=== PATIENT | female | born 1940 | race Caucasian/White ===

== ENCOUNTER 2019-04-28 08:23 | Day surgery (SDC) | payer OTHER ==
[2019-04-25 12:01] LABS: Absolute Lymphocytes (CBC) 1.3 K/uL (0.7-4.9); Basophils % 0.7 % (0-1.3); Hematocrit 30.8 % (36.0-45.0); Lymphocytes % 19.9 % (15.3-44.8); MPV 7.2 fL (7.6-11.3); RBC Red Blood Cell Count 3.89 M/uL (3.86-4.86)
--- NOTE | 2019-04-25 12:13 | RAD REPORT ---
EXAM DESCRIPTION: RAD - Chest Pa And Lat (2 Views) - 04/25/2019 12:00 pm CLINICAL HISTORY: preopright arm soft tissue injury repair COMPARISON: None. TECHNIQUE: PA and lateral views of the chest were obtained. 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 An acute infiltrate is not identified. Scarring white ges and pericardial fat accentuate the left base. Patient has a large hiatal hernia that increases ov erall density in the retrocardiac region. Heart size is normal and central vasculature is within no rmal limits. No pleural effusion or pneumothorax seen. No acute bony finding noted. No aortic abno rmality. IMPRESSION: Fibrotic lung change with no acute cardiopulmonary finding.
[2019-04-25 12:19] LABS: Potassium 3.8 mmol/L (3.5-5.1)
[2019-04-25 13:14] LABS: Platelet Estimate ADEQ; Urine White Blood Cell Casts OK
[2019-04-25 13:15] LABS: Anisocytosis 2+; Blood Morphology Comment NOTED (NOT SEEN)
--- NOTE | 2019-04-25 20:47 | EKG ---
Test Date: 2019-04-25 Test Time: 11:42:35 Rotary Planer Set Up Operator: RADHA MEASUREMENT RESULTS: Intervals: Rate: 66 FL: 150 QRSD: 88 QT: 422 QTc: 442 [place]: P: 61 FL: 150 QRS: 40 T: 70 INTERPRETIVE STATEMENTS: Sinus rhythm with premature atrial complexes Otherwise normal ECG Compared to ECG 01/06/2007 09:41:44 Atrial premature complex(es) now present Electronically Signed On 04-25-19 20:46:41 SOLE LEVELER MACHINE by Kaushik Castellanos
[~2019-04-28 08:23] MED LIST: FENTANYL CITR 100 MCG/2 ML ONE; LIDOCAINE 2% MPF 5 ML VIAL ONE; MIDAZOLAM HCL 2 MG/2 ML INJ ONE; propofoL 200 MG/20 ML VIAL IV ONE
--- OUTSIDE RECORDS SUMMARY | 2019-04-28 08:26 | XMS REPORT ---
:1940 [facility] Address [address] [place] [address] [place] [id number] Care Team Providers Name Role Phone Unavailable Unavailable Unavailable Problems This patient has no known problems. Allergies, Adverse Reactions, Alerts This patient has no known allergies or adverse reactions. Medications This patient has no known medications.
[2019-04-28] MEDS ORDERED: CEFAZOLIN/SWI 1gm 0 GM/0 ML SYR ONE (08:56)
[2019-04-28] MEDS ORDERED: Ringers Lactate 1,000 ML IV ONE (08:56)
[2019-04-28] MEDS ORDERED: MIDAZOLAM HCL 2 MG/2 ML INJ ONE (09:26)
[2019-04-28] MEDS ORDERED: LIDOCAINE 2% MPF 5 ML VIAL ONE (09:26)
[2019-04-28] MEDS ORDERED: propofoL 200 MG/20 ML VIAL IV ONE (09:26)
[2019-04-28] MEDS ORDERED: FENTANYL CITR 100 MCG/2 ML ONE (09:26)
[2019-04-28] MEDS ORDERED: BUPIVACAINE 0.5% PF 10 ML VIAL ONE (10:17)
[2019-04-28] MEDS ORDERED: CIPROFLOXACIN 400mg IV 400 MG/200 ML BAG IV ONE (10:37)
[2019-04-28] MEDS ORDERED: CODEINE 30MG/APAP 300MG TAB ONE (11:42)
[2019-04-28 12:27] VITALS: BP 1365/68; TEMP 97; O2SAT 94
--- NOTE | 2019-04-28 22:55 | OP ---
Date of Procedure: 04/28/2019 Surgeon: Luis Molina MD Preoperative Diagnosis: Nonhealing wound, right anterior shoulder. Postoperative Diagnosis: Nonhealing wound, right anterior shoulder. Procedure: Wide excision, nonhealing right anterior shoulder wounds 4 x 2 cm. Estimated Blood Loss: Minimal. Specimens: Nonhealing wound. Findings: Likely suture granuloma. Anesthesia: MAC. Complications: None. Disposition: Patient tolerated procedure in stable condition, taken to Recovery in good general cond ition. Procedure In Detail: Patient was brought to the OR and placed in supine position. MAC anesthesia wa s begun. The patient was prepped and draped in the usual sterile fashion. Marcaine 0.5% was infiltr ated locally. A 15-blade was used to make a 4 x 2 cm incision around the area of the nonhealing woun d down to the subcutaneous tissue, excised and sent to pathology as specimen. No obvious suture seen , but there was a lot of granulation tissue and inflammatory tissue that was seen. This was all exci sed to healthy tissue and then wound irrigated, bleeding controlled with cautery and 3-0 chromic used to approximate the subcutaneous tissue. The skin left open as the patient had a draining wound prio r to this and sterile dressing was applied. Patient was awakened and taken to recovery in good gener al condition. Discharge Note: The patient will go to Day-Surgery, home when stable. Condition: Stable. Discharge Instructions: Resume home medications and diet. Activity as tolerated. No heavy lifting. Remove outer dressing in 2 days. Shower. Keep wound clean and dry. Dry gauze to wound daily. [facility] 2 weeks. Call for appointment. Tylenol No. 3 one tablet p.o. q .4 p.r.n. pain and Cipro 500 mg p.o. q.12. May resume blood thinners tomorrow. /MODL Voice ID: [id number] Report ID: [id number]
== END 2019-04-28 12:17 | disposition home or self-care (01) ==
LOC: OR 08:23
PROVIDERS: ATTEND Surgery
PROC: 0JBD0ZZ Excision of Right Upper Arm Subcutaneous Tissue and Fascia, Open Approach (ICD-10-PCS; principal; 2019-04-28 10:15)
DX: T81.89XA Other complications of procedures, not elsewhere classified, initial encounter (principal); D64.9 Anemia, unspecified; I10 Essential (primary) hypertension; I38 Endocarditis, valve unspecified; E78.5 Hyperlipidemia, unspecified; E03.9 Hypothyroidism, unspecified; F03.90 Unspecified dementia, unspecified severity, without behavioral disturbance, psychotic disturbance, mood disturbance, and anxiety; F32.9 Major depressive disorder, single episode, unspecified; Z88.0 Allergy status to penicillin; Z79.02 Long term (current) use of antithrombotics/antiplatelets
CPT/HCPCS: 93005; 85025; 80048; 36415; 88304; 71046; 11042; J2704; J3010; J7120; J0744; J0690; J2250

== ENCOUNTER 2019-09-15 08:46 | Emergency (ER) | payer OTHER ==
--- OUTSIDE RECORDS SUMMARY | 2019-09-15 09:11 | XMS REPORT ---
:1940 Author Organization [facility] t Address [address] [place] [place] [address] Care Team Providers Name Role Phone Ramon FARIAS Attending Clinician Jerry Grossman Attending Clinician Tomas STRATTON F Attending Clinician Benson FARIAS Attending Clinician Christiano FARIAS Attending Clinician Eve STRATTON, R Attending Clinician Erica FARIAS, Gene Attending Clinician Doctor Unassigned, Name Attending Clinician Unavailable Beck VINCENT L Attending Clinician Unavailable Amee Orozco Attending Clinician Behzad FARIAS Attending Clinician Benson FARIAS Admitting Clinician Behzad FARIAS Admitting Clinician Problems This patient has no known problems. Allergies, Adverse Reactions, Alerts This patient has no known allergies or adverse reactions. Medications This patient has no known medications. Procedures This patient has no known procedures. Encounters Start End Encounter Admission Attending Care Care Encounter Source Date/Time Date/Time Type Type Clinicians Facility Department ID 2019-08-15 2019-08-15 Telephone SOPHIA Navarro [id number] 00:00:00 00:00:00 Tammy Hiram [id number] [place] [id number] Professio [phone] [facility] 188 Building 2019-08-11 2019-08-12 Emergency Neda Kearney [facility] [id number] 13:22:30 19:51:00 Pepito Marin 350.1.13. 10 BensonBarb [place] [id number] [place] [id number] 2019-08-12 2019-08-12 [facility] [id number] 00:00:00 00:00:00 DileepHugh [facility] [id number] [place] [id number] Professio [phone] [place] [address] Office [address] One 2019-07-26 2019-07-26 [facility]ill [facility] [id number] 00:00:00 00:00:00 [facility]ugh [facility] [id number] [place] [id number] Professio [phone] [place] [address] [address] One 2019-07-24 2019-07-24 [facility] [id number] 10:09:32 13:42:00 Keisha Gandhi [id number] [place] [id number] [place] [id number] 2019-07-20 2019-07-20 [facility]phone [facility] [id number] 00:00:00 00:00:00 Kosta Gandhi [id number] [place] [id number] Professio [phone] [facility] 2019-07-11 2019-07-11 Orders Doctor FLORIAN [id number] 00:00:00 00:00:00 Only Unassigned, NEMO [id number] [place] [facility] 4.2.7.2.686 [id number] 2019-06-28 2019-06-28 [place] [id number] 00:00:00 00:00:00 of Care Senia Johnson [id number] [place] 4.2.7.2.686 [id number] [id number] 2019-06-28 2019-06-28 Telephone [facility] [id number] 00:00:00 00:00:00 [facility] [id number] [place] [id number] Professio [phone] [place] 0[address] Office [address] One 2019-06-24 2019-06-26 Emergency Britt, Asim Amee [facility] [id number]. [id number] 10:14:00 13:15:00 Ilya Wen 350.1.13.10 [place] 4.2.7.2.686 [place] [id number] 2019-06-06 2019-06-06 Office Erica [facility] [id number] 14:22:34 15:53:57 Visit Kosta Gandhi [id number] [place] [id number] Professio [phone] [place] 092 Building 2019-06-06 2019-06-06 Orders Doctor FLORIAN [id number] 00:00:00 00:00:00 Only Unassigned, NEMO [id number] [place] [facility] 4.2.7.2.686 [id number] [id number] Results This patient has no known results.
--- OUTSIDE RECORDS SUMMARY | 2019-09-15 09:15 | XMS REPORT | Summary of Care ---
:1940 Author Organization [facility] Address [address] [place] [id number] Care Team Providers Name Role Phone MD Christiano Primary Care Provider Reason for Referral Radiology Services (STAT) Status Reason Specialty Diagnoses / Referred By Referred To Procedures Contact Contact New Request Diagnostic Diagnoses Toe dislocation, left, initial encounter Keisha Prado R, Radiology Procedures XR FOOT <3 VW LEFT [facility] [address] [place] [address] Radiology Services (STAT) Status Reason Specialty Diagnoses / Referred By Referred To Procedures Contact Contact New Request Diagnostic Diagnoses Altered mental status, unspecified altered mental status type 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 Left foot pain Fall, initial encounter Injury of head, initial encounter Keisha Prado R, Radiology Procedures XR CHEST 1 VW XR CHEST 2 VW NURSE [facility] [address] [place] [address] Radiology Services (STAT) Status Reason Specialty Diagnoses / Referred By Referred To Procedures Contact Contact New Request Diagnostic Diagnoses Altered mental status, unspecified altered mental status type 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 Left foot pain Fall, initial encounter Injury of head, initial encounter Keisha Prado R, Radiology Procedures XR FOOT 3+ VW LEFT NURSE [facility] [address] [place] [address] MRI/CAT Scan (STAT) Status Reason Specialty Diagnoses / Referred By Referred To Procedures Contact Contact New Request Diagnostic Diagnoses Altered mental status, unspecified altered mental status type 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 Left foot pain Fall, initial encounter Injury of head, initial encounter Keisha Prado, Radiology Procedures CT CERVICAL SPINE WO CONTRAST NURSE [facility] [address] [place] [address] MRI/CAT Scan (STAT) Status Reason Specialty Diagnoses / Referred By Referred To Procedures Contact Contact New Request Diagnostic Diagnoses Altered mental status, unspecified altered mental status type 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 Left foot pain Fall, initial encounter Injury of head, initial encounter Keisha Prado, Radiology Procedures CT HEAD WO CONTRAST NURSE [facility] [address] [place] [address] Reason for Visit Reason Comments Fall Auth/Cert Status Reason Specialty Diagnoses / Referred By Referred To Procedures Contact Contact Emergency Medicine [facility] Em ergency Dept [address] [facility] [place] [address] Fax: Encounter Details Date Type Department Care Team Description 07/24/2019 Emergency [facility]-Emergency Keisha Prado, Injury of h ead, initial encounter (Primary Dx); Department [facility] Altered mental status, unspecified alter ed mental status type; [address] [place] [address] [address] Senile dementia without behavioral distu rbance; [address] Left foot pain; [phone] [id number] Fall, initial encounter; [phone] Toe dislocation, left, initial encounter ; Displaced fracture of proximal phalanx of right great toe, initial encounter for closed fracture; Contusion of sc alp, initial encounter Allergies Active Allergy Reactions Severity Noted Date Comments Chocolate Flavor Anxiety 04/20/2015 Nitrofurantoin Unknown - See 04/20/2015 Monohyd/M-Cryst comments Morphine Nausea and/or 12/19/2016 Vomiting Penicillin Other - See comments 12/19/2016 Pt stat es "several family members are allergic so i t hink i am" documented as of this encounter (statuses as of 07/24/2019) Medications Medication Sig Dispensed Refills Start Date End Date Status Cholecalciferol, Vitamin Take 1,000 Units 0 Active D3, (VITAMIN D3) 1,000 by mouth every unit capsule morning. lovastatin 20 mg tablet Take 20 mg by 0 11/02/2016 Active mouth daily. ciclopirox 8 % Apply to 6.6 mL 2 02/04/2017 Acti ve solutionIndications: area(s) at Onychomycosis bedtime. Apply to dry nail/surrounding skin. Reapply nightly. Remove with alcohol, trim/file nails on day 7. repeat traMADOL (ULTRAM) 50 mg Take 1 tablet by 20 tablet 0 8 Active tablet mouth every 6 (six) hours as needed for Pain (scale 4-6). mupirocin 2 % Apply to 22 g 0 12/30/2017 Activ e ointmentIndications: area(s) 3 Abscess (three) times daily. rivaroxaban 15 mg tablet Take 1 tablet by 0 01/19/20 18 Active mouth daily. hydrocortisone Insert into 30 g 1 04/07/2018 A ctive (PROCTOSOL HC) 2.5 % rectum 2 (two) rectal cream times daily. levothyroxine 88 mcg TAKE 1 TABLET BY 90 tablet 1 03/01/2019 Active tabletIndications: MOUTH ONCE DAILY Hypothyroidism, IN THE MORNING unspecified type Ferrous Fumarate-Folic Take 1 tablet by 90 tablet 1 03/16/2019 Active Acid (HEMATINIC/FOLIC mouth daily. ACID) 324 mg (106 mg iron)-1 mg TabIndications: Iron deficiency anemia, unspecified iron deficiency anemia type rivastigmine 4.6 mg/24 Apply 1 Patch to 30 Patch 1 06/06/2019 Active hr patchIndications: skin daily. 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 tabletIndications: Dizziness, PAF (paroxysmal atrial fibrillation) vitamin B-12 1,000 mcg Take 1 tablet by 30 tablet 0 06/26/2019 Active tabletIndications: mouth daily. Dizziness, PAF (paroxysmal atrial fibrillation) documented as of this encounter (statuses as of 07/24/2019) Active Problems Problem Noted Date LOC (loss of consciousness) 06/25/2019 PAF (paroxysmal atrial fibrillation) 06/25/2019 Orthostatic hypotension 06/25/2019 Dizziness 06/24/2019 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 Right arm pain 2016 Essential hypertension 07/12/2015 Hyperlipemia 07/12/2015 Hypothyroidism 07/12/2015 Iron (Fe) deficiency anemia 07/12/2015 Vitamin D deficiency 07/12/2015 documented as of this encounter (statuses as of 07/24/2019) Immunizations Name Administration Dates Next Due Influenza High Dose 03/17/2019, 02/12/2017 Pneumococcal Polysaccharide, PPSV23 (PNEUMOVAX) 03/17/2019 documented as of this encounter Social History Tobacco Use Types Packs/Day Years Used Date Never Smoker Cigarettes 1 Quit: 0 Smokeless Tobacco: Never Used Alcohol Use Drinks/Week oz/Week Comments Yes Occasional Drink er Sex Assigned at Date Recorded Not on file Job Start Date Occupation Industry Not on file Not on file Not on file Travel History Travel Start Travel End No recent travel history available. 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 Head contusion 2. Head injury 3. Toe fracture, closed NO LIFE-THREATENING FINDINGS ON TODAY'S EXAM. PROCEDURES IN THE ER TODAY: Orders Placed This Encounter Procedures CT HEAD WO CONTRAST CT CERVICAL SPINE WO CONTRAST XR FOOT 3+ VW LEFT XR CHEST 1 VW XR FOOT <3 VW LEFT CBC WITH DIFF COMP. METABOLIC PANEL (33630) TROPONIN I PROTHROMBIN TIME / INR aPTT URINALYSIS CBC WITH DIFFERENTIAL MEDICATIONS ADMINISTERED IN THE ER TODAY: Medications - No data to display YOUR PRESCRIPTIONS AND [id number] MEDICATION RECOMMENDATIONS: New Prescriptions No medications on file SPECIAL CARE INSTRUCTIONS: Tylenol for pain. Ice for head and face and toe FOLLOW-UP RECOMMENDATIONS: RECOMMEND FOLLOW-UP WITH A PRIMARY CARE PROVIDER OR SPECIALIST IN 2-5 DAYS, ESPECIALLY IF NO IMPROVEMENT IN SYMPTOMS. TO FOLLOW-UP WITHIN THE [facility], TRY THESE OPTIONS (CLINIC APPOINTMENTS AVAILABLE ON [id number] BASIS): 1. SCHEDULE AN APPOINTMENT ONLINE AT [facility] 2. OR CALL THE [facility]ESS [facility]ENTER AT OR 3. OR CALL YOUR [facility] PHYSICIAN'S OFFICE DIRECTLY IF YOU ARE ALREADY AN ESTABLISHED [facility] PATIENT. OR, YOU MAY FOLLOW-UP WITH A PROVIDER OF YOUR CHOICE, SUCH : 1. A PHYSICIAN OF YOUR CHOICE 2. [facility], . LOCATIONS IN [facility] 3. [facility], [address] [place] [address]; [phone] RETURN TO ER FOR WORSENING OF SYMPTOMS. AttachmentsThe following attachments cannot be sent through Care Everywhere. Bruises (Contusions) ([place]gent[place])Scalp Contusion ([place])Fracture, Toe, Closed ([place])documented in this encounter Plan of Treatment Health Maintenance Due Date Last Done Comments DTaP,Tdap,and Td Vaccines (1 - Tdap) 1951 Zoster Recombinant Vaccine (SHINGRIX) (1 1992 of 2) Medicare Wellness Visit 12/03/2007 Osteoporosis Screening 12/03/2007 PNEUMOCOCCAL VACCINES 65+ (2 of 2 - PCV13) 03/17/202003/17 INFLUENZA VACCINE Completed 03/17/2019, 02/12/2017 documented as of this encounter Implants Implanted Type Area Floor Trader Device Shelf Model / Identifier Expiration Serial / Lot Date Cement CEMENT Right: Biomet 01/31/2018 [id number] / Implanted: Qty: 1 on 12/19/2016 by Jude Rios MD at [facility] Shoulder 6 [id number] / [id number] Cement CEMENT Right: [employer]omet 04/02/2018 [id number] / Implanted: Qty: 1 on 12/19/2016 by Jude Rios MD at [facility] 6 [id number] / [id number] Central Screw SCREW Right: [employer] 12/11/2026 [id number] / Implanted: Qty: 1 on 12/19/2016 by Jude Rios MD at [facility] 7 [id number] / [id number] Locking Screw SCREW Right: [employer] 09/16/2026 [id number] 0 / Implanted: Qty: 1 on 12/19/2016 by Jude Rios MD at [facility] Shoulder 4 [id number] / [id number] Locking Screw SCREW Right: [employer] 11/04/2026 [id number] 0 / Implanted: Qty: 1 on 12/19/2016 by Jude Rios MD at [facility] Shoulder 2 [id number] / [id number] Nonlocking Screw SCREW Right: [employer] 10/15/2026 18 [id number] / Implanted: Qty: 1 on 12/19/2016 by Jude Rios MD at [facility] Shoulder 8 [id number] / [id number] Nonlocking Screw SCREW Right: [employer] 09/13/2026 18 [id number] / Implanted: Qty: 1 on 12/19/2016 by Jude Rios MD at [facility] 4 [id number] / [id number] Bone Cement Restrictor SHOULDER Right: [employer]omet [id number] / Implanted: Qty: 1 on 12/19/2016 by Jude Rios MD at [facility] Shoulder 3 [id number] / [id number] Humeral Bearing SHOULDER Right: [employer] 11/17/2021 XL- [id number] / Implanted: Qty: 1 on 12/19/2016 by Jude Rios MD at [facility] Shoulder 2 [id number] / [id number] Humeral Tray With Locking Ring SHOULDER Right: [employer] 09/05/2026 [id number] / Implanted: Qty: 1 on 12/19/2016 by Jude Rios MD at [facility] 2 [id number] / [id number] Mini Baseplate SHOULDER Right: [employer] 10/09/2026 0100 [id number] / Implanted: Qty: 1 on 12/19/2016 by Jude Rios MD at [facility] Shoulder 1 [id number] / [id number] Glenosphere SHOULDER Right: [employer]omet 11/26/2026 [id number] / Implanted: Qty: 1 on 12/19/2016 by Jude Rios MD at [facility] 7 [id number] / [id number] Humeral Fracture Stem Stem Right: [employer]omet 08/30/19 [id number] / Implanted: Qty: 1 on 12/19/2016 by Jude Rios MD at [facility] 4 [id number] / [id number] documented as of this encounter Procedures Procedure Name Priority Date/Time Associated Diagnosis Comme nts CONSENT/REFUSAL FOR Routine 07/24/2019 1:09 DIAGNOSIS AND PM CDT TREATMENT XR FOOT <3 VW LEFT STAT 07/24/2019 11:40 Toe dislocation, R esults for this AM CDT left, initial procedure are in encounter the results section. URINALYSIS STAT 07/24/2019 11:11 Altered mental Results f or this AM CDT status, unspecified procedur e are in altered mental the results status type section. 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 METABOLIC PANEL STAT 07/24/2019 10:19 Altered mental Results for this (18165) AM CDT status, unspecified procedur e are in altered mental the results status type section. 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 Left foot pain Fall, initial encounter Injury of head, initial encounter TROPONIN I STAT 07/24/2019 10:19 Altered mental Results f or this AM CDT status, unspecified procedur e are in altered mental the results status type section. 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 Preliminary Report Dictated by Resident: Pierre Loera I, Jeffrey Grimm MD., have reviewed thi s study and agree with the above report. Narrative Performed At EXAM: PACS/VR/DOSE XR FOOT <3 VW LEFT HISTORY: post reduction of 2nd toe on left foot. COMPARISON: Same day left foot radiographs FINDINGS: Status post reduction radiographs demonstrate interval improved alignment of the second toe P1 fracture, now in an atomic alignment. Diffuse osteopenia is noted. Overlying soft tiss ue swelling is present. Procedure Note [facility], Radiant Results Inft User - 2019 12:42 PM CDT EXAM: XR FOOT <3 VW LEFT HISTORY: post reduction of 2nd toe on left foot. COMPARISON: Same day left foot radiographs FINDINGS: Status post reduction radiographs demons trate interval improved alignment of the second toe P1 fracture, now in an atomic alignment. Diffuse osteopenia is noted. Overlying soft tiss ue swelling is present. IMPRESSION Successful reduction of the second toe P 1 fracture. Preliminary Report Dictated by Resident: Pierre Loera I, Jeffrey Grimm MD., have reviewed this study and agree with the above report. Performing Organization Address [facility]ode Phone Number PACS/VR/DOSE URINALYSIS (07/24/2019 11:11 AM CDT) Pathologist Sig nature APPEARANCE Clear Clear [facility] COLOR Straw (A) Yellow [facility] PH 7.0 4.8 - 8.0 [facility] SP GRAVITY 1.005 1.003 - 1.030 [facility] GLU U QUAL Normal Normal [facility] BLOOD 1+ (A) Negative [facility] KETONES Negative Negative [facility] PROTEIN Negative Negative [facility] UROBILIN Normal Normal [facility] BILIRUBIN Negative Negative [facility] NITRITE Negative Negative [facility] [place] Negative Negative [facility] RBC/HPF 1 0 - 3 HPF [facility] WBC/HPF 1 0 - 5 HPF [facility] BACTERIA Negative Negative [facility] SQ EPITH <1 HPF [facility] Specimen Urine - URINE, CATHETERIZED Performing Organization Address [facility]/Zipcode Phone Number [facility] CLIA: [id number], [address] [place], [place] [address] CERVICAL SPINE WO CONTRAST (07/24/2019 11:02 AM CDT) Specimen Impressions Performed At PACS/VR/DOSE No acute intracranial findings. No acute osseous findings in the cervica l spine. Narrative Performed At HISTORY: Head trauma, minor, GCS>=13, hi gh clinical risk, initial exam PACS/VR/DOSE Altered mental status (AMS), unclear cau se TECHNIQUE: CT head without contrast. CT cervical spine without contrast. COMPARISON: 02/17/2018. FINDINGS: CT HEAD: The ventricles and sulci are within norm al limits for patient's age. A small contusion is seen in the midline f rontal scalp (2:8). There is no midline shift. The basal cisterns are pr eserved. No large vascular territory infarction, intracranial hemor rhage or mass effect is seen. CT cervical spine: There is mild anterolisthesis of C3 on C4. The vertebr al body heights are preserved. No acute fractures are seen. Fusion is seen in the C2-C3 and C6-C7 vertebral bodies. Moderate multilevel degenerati ve changes are noted the form of disc space narrowing, margin al osteophytes and facet arthropathy, with the facet arthropathy being the dominant component of these changes. Procedure Note [facility], Radiant Results Inft User - 2019 11:41 AM CDT HISTORY: Head trauma, minor, GCS>=13, high clinical risk, initial exam Altered mental status (AMS), unclear cau se TECHNIQUE: CT head without contrast. CT cervical spine without contrast. COMPARISON: 02/17/2018. FINDINGS: CT HEAD: The ventricles and sulci are within norm al limits for patient's age. A small contusion is seen in the midline f rontal scalp (2:8). There is no midline shift. The basal cisterns are pr eserved. No large vascular territory infarction, intracranial hemor rhage or mass effect is seen. CT cervical spine: There is mild anterolisthesis of C3 on C 4. The vertebral body heights are preserved. No acute fractures are seen. Fusion is seen in the C2-C3 and C6-C7 vertebral bodies. Moderate multile marissa degenerative changes are noted the form of disc space narrowing, margin al osteophytes and facet arthropathy, with the facet arthropathy being the dominant component of these changes. IMPRESSION No acute intracranial findings. No acute osseous findings in the cervica l spine. Performing Organization Address City/State/Zipcode Phone Number PACS/VR/DOSE CT HEAD WO CONTRAST (07/24/2019 11:02 AM CDT) Specimen Impressions Performed At PACS/VR/DOSE No acute intracranial findings. No acute osseous findings in the cervica l spine. Narrative Performed At HISTORY: Head trauma, minor, GCS>=13, hi gh clinical risk, initial exam PACS/VR/DOSE Altered mental status (AMS), unclear cau se TECHNIQUE: CT head without contrast. CT cervical spine without contrast. COMPARISON: 02/17/2018. FINDINGS: CT HEAD: The ventricles and sulci are within norm al limits for patient's age. A small contusion is seen in the midline f rontal scalp (2:8). There is no midline shift. The basal cisterns are pr eserved. No large vascular territory infarction, intracranial hemor rhage or mass effect is seen. CT cervical spine: There is mild anterolisthesis of C3 on C4. The vertebr al body heights are preserved. No acute fractures are seen. Fusion is seen in the C2-C3 and C6-C7 vertebral bodies. Moderate multilevel degenerati ve changes are noted the form of disc space narrowing, margin al osteophytes and facet arthropathy, with the facet arthropathy being the dominant component of these changes. Procedure Note [facility], Radiant Results Inft User - 2019 11:41 AM CDT HISTORY: Head trauma, minor, GCS>=13, high clinical risk, initial exam Altered mental status (AMS), unclear cau se TECHNIQUE: CT head without contrast. CT cervical spine without contrast. COMPARISON: 02/17/2018. FINDINGS: CT HEAD: The ventricles and sulci are within norm al limits for patient's age. A small contusion is seen in the midline f rontal scalp (2:8). There is no midline shift. The basal cisterns are pr eserved. No large vascular territory infarction, intracranial hemor rhage or mass effect is seen. CT cervical spine: There is mild anterolisthesis of C3 on C 4. The vertebral body heights are preserved. No acute fractures are seen. Fusion is seen in the C2-C3 and C6-C7 vertebral bodies. Moderate multile marissa degenerative changes are noted the form of disc space narrowing, margin al osteophytes and facet arthropathy, with the facet arthropathy being the dominant component of these changes. IMPRESSION No acute intracranial findings. No acute osseous findings in the cervica l spine. Performing Organization Address City/State/Zipcode Phone Number PACS/VR/DOSE XR CHEST 1 VW (07/24/2019 10:39 AM CDT) Specimen Impressions Performed At PACS/VR/DOSE Left lower lobe opacities likely represe nting atelectasis/scarring. Infection cannot be excluded. Moderate-sized hiatal hernia, unchanged. Preliminary Report Dictated by Resident: Randall Garcia MD., have reviewed this study and agree with the above report. Narrative Performed At XR CHEST 1 VW PACS/VR/DOSE HISTORY: AMS, fall COMPARISON: 06/24/2019 TECHNIQUE: AP radiograph of the chest wa s performed. FINDINGS: Emphysematous lungs. Rounded opacity projecting over t he mediastinum with air-fluid levels likely representing a m oderate size hiatal hernia, unchanged. Left lower lobe hazy opacitie s may represent scarring/atelectasis and/or consolidations. No right p leural effusion. No pneumothorax. The lower neck is not incl uded on the study and not evaluated. The heart size is normal. Calcifications of the aortic knob. No acute osseous abnormality. Prior chol ecystectomy. Diffuse osteopenia. Right shoulder arthroplasty changes are partially visualized. Procedure Note [facility], Radiant Results Inft User - 2019 11:20 AM CDT XR CHEST 1 VW HISTORY: AMS, fall COMPARISON: 06/24/2019 TECHNIQUE: AP radiograph of the chest wa s performed. FINDINGS: Emphysematous lungs. Rounded opacity pro jecting over the mediastinum with air-fluid levels likely representing a m oderate size hiatal hernia, unchanged. Left lower lobe hazy opacitie s may represent scarring/atelectasis and/or consolidatio ns. No right pleural effusion. No pneumothorax. The lower neck is not incl uded on the study and not evaluated. The heart size is normal. Calcifications of the aortic knob. No acute osseous abnormality. Prior chol ecystectomy. Diffuse osteopenia. Right shoulder arthroplasty changes are partially visualized. IMPRESSION Left lower lobe opacities likely represe nting atelectasis/scarring. Infection cannot be excluded. Moderate-sized hiatal hernia, unchanged. Preliminary Report Dictated by Resident: Randall Garcia MD., have reviewed this study and agree with the above report. Performing Organization Address City/State/Zipcode Phone Number PACS/VR/DOSE XR FOOT 3+ VW LEFT (07/24/2019 10:39 AM CDT) Specimen Impressions Performed At PACS/VR/DOSE Displaced angulated fracture of the seco nd toe distal P1. Diffuse osteopenia. 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 Narrative Performed At EXAM: PACS/VR/DOSE XR FOOT 3+ VW LEFT HISTORY: left 2nd toe pain and abnormality. COMPARISON: None FINDINGS: Radiographs of the left foot demonstrate displaced angulated fracture of the second toe P1 head/neck with apex la teral angulation of the distal fracture fragment. The joints maintain a lignment. Diffuse osteopenia is seen. Calcaneal enthesophyte formation is seen. Osteoa rthritic changes of the talonavicular joint are noted. 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 Degenerative cyst formation is seen at the superior me dial navicular bone. Mild soft tissue swelling around the dis anabela second toe is seen. Procedure Note [facility], Radiant Results Inft User - 2019 12:44 PM CDT EXAM: XR FOOT 3+ VW LEFT HISTORY: left 2nd toe pain and abnormality. COMPARISON: None FINDINGS: Radiographs of the left foot demonstrate displaced angulated fracture of the second toe P1 head/neck with apex la teral angulation of the distal fracture fragment. The joints maintain a lignment. Diffuse osteopenia is seen. Calcaneal enthesophyte formation i s seen. Osteoarthritic changes of the talonavicular joint are noted. 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 Degenerative cyst formation is seen at t he superior medial navicular bone. Mild soft tissue swelling around the dis anabela second toe is seen. IMPRESSION Displaced angulated fracture of the seco nd toe distal P1. Diffuse osteopenia. 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 Performing Organization Address City/State/Zipcode Phone Number PACS/VR/DOSE CBC WITH DIFFERENTIAL (07/24/2019 10:19 AM CDT) Pathologist Sig nature WBC 8.25 4.30 - 11.10 [facility] 10*3/L [facility] RBC 3.92 (L) 3.93 - 5.25 [facility] 10*6/L [facility] HGB 11.2 (L) 11.6 - 15.0 [facility] g/dL [facility] HCT 34.1 (L) 35.7 - 45.2 % [facility] MCV 87.0 80.6 - 95.5 fL [facility] MCH 28.6 25.9 - 32.8 pg [facility] MCHC 32.8 31.6 - 35.1 [facility] g/dL [facility] RDW-SD 48.1 39.0 - 49.9 fL [facility] RDW-CV 15.1 12.0 - 15.5 % [facility] PLT 226 166 - 358 [facility] 10*3/L [facility] MPV 9.3 (L) 9.5 - 12.9 fL [facility] NRBC/100 WBC 0.0 0.0 - 10.0 /100 [facility] WBCs [facility] NRBC x10^3 <0.01 10*3/L [facility] GRAN MAT (NEUT) % 86.9 % [facility] LAB[facility] IMM GRAN % 0.50 % [facility] LYMPH % 7.5 % [facility] MONO % 4.7 % [facility] EOS % 0.2 % [facility] BASO % 0.2 % [facility] LAB[facility] GRAN MAT x10^3(ANC) 7.16 (H) 1.88 - 7.09 [facility] 10*3/uL [facility] IMM GRAN x10^3 0.04 0.00 - 0.06 [facility] 10*3/uL [facility] LYMPH x10^3 0.62 (L) 1.32 - 3.29 [facility] 10*3/uL [facility] MONO x10^3 0.39 0.33 - 0.92 [facility] 10*3/uL [facility] EOS x10^3 <0.03 (L) 0.03 - 0.39 [facility] 10*3/uL [facility] BASO x10^3 <0.03 0.01 - 0.07 [facility] 10*3/uL [facility] Specimen Blood - ARM, LEFT Performing Organization Address City/[facility]/Zipcode Phone Number [facility] CLIA: [id number], [address] [place], [place] [address] aPTT (07/24/2019 10:19 AM CDT) Pathologist Sig nature APTT Patient 25 23 - 38 Seconds [facility] LABORATORY Specimen Blood - ARM, LEFT Narrative Performed At The [facility] patient population mean normal value [facility] LABOR[facility]ORY for aPTT is 30 seconds. Performing Organization Address [facility] Phone Number [facility] CLIA: [id number], [address] [place], [place] [address] PROTHROMBIN TIME / INR (07/24/2019 10:19 AM CDT) PROTIME PATIENT 14.4 12.0 - 14.7 [facility] LABORATORY INR 1.2Comment: Normal [facility] INR <1.1; Warfarin [facility] Therapeutic range LABORATORY 2.0 to 3.0 or 2.5 to 3.5, depending upon the indications. Specimen Blood - ARM, LEFT Performing Organization Address [facility] Phone Number [facility] CLIA: [id number], [address] [place] [address] TROPONIN I (07/24/2019 10:19 AM CDT) Pathologist Sig nature TROPONIN I 0.006 <=0.034 ng/mL [facility] LABOR[facility]ORY Specimen Blood - ARM, LEFT Narrative Performed At Equal or Less than 0.034 ng/ml---Normal [facility] LAB[facility] Note: Cardiac troponin begins to rise 3-4 hours after the onset of ischemia. Repeat in 4-6 hours if the sample was drawn within 3-4 hours of the onset of the symptom and found normal. Between 0.035 and 0.120 ng/mL--- Borderline. Questionable myocardial injury or necros is Note: Serial measurement may be necessary to confirm or exclude the diagnosis of myocardial injury or necrosis; Clinical correlation (symptoms, EKGs, imaging studies, and others) required; Repeat in 4-6 hours if clinically indicated. Equal or Higher than 0.121 ng/mL---Abnormal. Myocardial Injury or Necrosis Likely Biotin has been reported to cause a negative bias, interpret results relative to patient's use of biotin. Performing Organization Address City/State/Zipcode Phone Number [facility] CLIA: [id number], [address] [address] COMP. METABOLIC PANEL (31950) (07/24/2019 10:19 AM CDT) Pathologist [facility] NA 136 135 - 145 [facility] mmol/L [facility] LABORATORY K 3.1 (L) 3.5 - 5.0 [facility] mmol/L [facility] LAB[facility] CL 102 98 - 108 mmol/L [facility] LAB[facility] CO2 TOTAL 25 23 - 31 mmol/L [facility] AGAP 9 2 - 16 [facility] LAB[facility] BUN 11 7 - 23 mg/dL [facility] LAB[facility] GLUCOSE 99 70 - 110 mg/dL [facility] LAB[facility]ORY CREATININE 0.70 0.50 - 1.04 [facility] mg/dL [facility] LABOR[facility]ORY TOTAL BILI 1.0 0.1 - 1.1 mg/dL [facility] LAB[facility]ORY CALCIUM 8.8 8.6 - 10.6 [facility] mg/dL [facility] LABORATORY T PROTEIN 7.3 6.3 - 8.2 g/dL [facility] LAB[facility] ALBUMIN 3.7 3.5 - 5.0 g/dL [facility] LABOR[facility]ORY ALK PHOS 121 34 - 122 U/L [facility] LAB[facility]ORY ALTv 11 5 - 35 U/L [facility] LAB[facility] AST(SGOT) 27 13 - 40 U/L [facility] LABOR[facility]ORY eGFR Calculation 81.4 mL/min/1.73m2 [facility] (Non[facility] LABORATORY [place]) eGFR Calculation 98.6 mL/min/1.73m2 [facility] () [facility] LABOR[facility]ORY Specimen Blood - ARM, LEFT Narrative Performed At Association of Glomerular Filtration Rate (GFR) [facility] LABORATORY and Staging of Kidney Disease* + + +- + | GFR (mL/min/1.73 m2) | With Kidney Damage | Without Kidney Damage + + +- + | >90 | Stage one | Normal + + +- + | 60-89 | Stage two | Decreased GFR + + +- + | 30-59 | Stage three | Stage three + + +- + | 15-29 | Stage four | Stage four + + +- + | <15 (or dialysis) | Stage five | Stage five + + +- + *Each stage assumes the associated GFR level has been in effect for at least three months. Stages 1 to 5, with or without kidney disease, indicate chronic kidney disease. Notes: Determination of stages one and two (with eGFR >59mL/min/1.73 m2) requires estimation of kidney damage for at least three months as defined by structural or functional abnormalities of the kidney, manifested by either: Pathological abnormalities or Markers of kidney damage (including abnormalities in the composition of the blood or urine or abnormalities in imaging tests). 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 Medicare A & B t 2 [id number] [place] BEDO[place] [phone] documented as of this encounter
--- OUTSIDE RECORDS SUMMARY | 2019-09-15 09:16 | XMS REPORT | Summary of Care ---
:1940 Author Organization [facility] - Health Address [address] [place] [address] Care Team Providers Name Role Phone MD Christiano Primary Care Provider Encounter Details Date Type Department Care Team Description 07/11/2019 Orders Only [facility] Doctor Unassigned, No [address] [facility] [place] [address] [address] [place] [address] Allergies Active Allergy Reactions Severity Noted Date Comments Chocolate Flavor Anxiety 04/20/2015 Nitrofurantoin Unknown - See 04/20/2015 Monohyd/M-Cryst comments Morphine Nausea and/or 12/19/2016 Vomiting Penicillin Other - See comments 12/19/2016 Pt stat es "several family members are allergic so i t hink i am" documented as of this encounter (statuses as of 07/29/2019) Medications Medication Sig Dispensed Refills Start Date [...] Late onset Alzheimer's disease without behavioral disturbance vitamin B-12 1,000 mcg Take 1 tablet by 30 tablet 0 06/26/2019 Active tabletIndications: mouth daily. Dizziness, PAF (paroxysmal atrial fibrillation) documented as of this encounter (statuses as of 07/29/2019) Active Problems Problem Noted Date LOC (loss of consciousness) 06/25/2019 PAF (paroxysmal atrial fibrillation) 06/25/2019 Orthostatic hypotension 06/25/2019 Dizziness 06/24/2019 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 Right arm pain 2016 Essential hypertension 07/12/2015 Hyperlipemia 07/12/2015 Hypothyroidism 07/12/2015 Iron (Fe) deficiency anemia 07/12/2015 Vitamin D deficiency 07/12/2015 documented as of this encounter (statuses as of 07/29/2019) Immunizations Name Administration Dates Next Due Influenza [...] of this encounter Last Filed Vital Signs Not on filedocumented in this encounter Plan of Treatment Health Maintenance Due Date Last Done Comments DTaP,Tdap,and Td Vaccines (1 - Tdap) 1951 Zoster Recombinant Vaccine (SHINGRIX) (1 1992 of 2) Medicare Wellness Visit 12/03/2007 Osteoporosis Screening 12/03/2007 PNEUMOCOCCAL VACCINES 65+ (2 of 2 - PCV13) 03/17/202003/17 INFLUENZA VACCINE Completed 03/17/2019, 02/12/2017 documented as of this encounter Implants Implanted Type Area Circuit Walker Device Shelf Model / Identifier Expiration Serial / Lot Date Cement CEMENT Right: Biomet 01/31/2018 [id number] / Implanted: Qty: 1 on 12/19/2016 by Jude Rios MD at [facility] Shoulder 6 195-1-001 / [id number] Cement CEMENT Right: Biomet 04/02/2018 6195-1-00 1 / Implanted: Qty: 1 on 12/19/2016 by Jude Rios MD at [facility] Shoulder 6 [id number] / [id number] Central Screw SCREW Right: Biomet 12/11/2026 [id number] 5 / Implanted: Qty: 1 on 12/19/2016 by Jude Rios MD at [facility] Shoulder 7 [id number] / [id number] Locking Screw SCREW Right: [employer] 09/16/2026 47800 0 / Implanted: Qty: 1 on 12/19/2016 by Jude Rios MD at [facility] Shoulder 4 [id number] / [id number] Locking Screw SCREW Right: [employer] 11/04/2026 53700 0 / Implanted: Qty: 1 on 12/19/2016 by Jude Rios MD at [facility] Shoulder 2 [id number] / [id number] Nonlocking Screw SCREW Right: [employer] 10/15/2026 18 0557 / Implanted: Qty: 1 on 12/19/2016 by Jude Rios MD at [facility] Shoulder 8 [id number] / [id number] Nonlocking Screw SCREW Right: [employer] 09/13/2026 18 0557 / Implanted: Qty: 1 on 12/19/2016 by Jude Rios MD at [facility] Shoulder 4 [id number] / [id number] Bone Cement Restrictor SHOULDER Right: Biomet [id number] [id number] / Implanted: Qty: 1 on 12/19/2016 by Jude Rios MD at [facility] Shoulder 3 [id number] / [id number] Humeral Bearing SHOULDER Right: Biomet 11/17/2021 XL- [id number] / Implanted: Qty: 1 on 12/19/2016 by Jude Rios MD at [facility] Shoulder 2 [id number] / [id number] Humeral Tray With Locking Ring SHOULDER Right: [employer]omet 09/05/2026 [id number] / Implanted: Qty: 1 on 12/19/2016 by Jude Rios MD at [facility] Shoulder 2 [id number] / [id number] Mini Baseplate SHOULDER Right: [employer]omet 10/09/2026 0100 [id number] / Implanted: Qty: 1 on 12/19/2016 by Jude Rios MD at [facility] Shoulder 1 [id number] / [id number] [employer] SHOULDER Right: Biomet 11/26/2026 [id number] / Implanted: Qty: 1 on 12/19/2016 by Jude Rios MD at [facility] Shoulder 7 [id number] / [id number] Humeral Fracture Stem Stem Right: Biomet 08/30/19 27 [id number] / Implanted: Qty: 1 on 12/19/2016 by Jude Rios MD at [facility] Shoulder 4 [id number] / [id number] documented as of this encounter Procedures Procedure Name Priority Date/Time Associated Diagnosis Comme nts HOME HEALTH - OTHER Routine 07/11/2019 12:01 AM CDT documented in this encounter Results Not on filedocumented in this encounter Insurance Payer Benefit Plan / Subscriber ID Effective Dates Phone Addre ss Type Group MEDICARE MEDICARE PART xxxxxxxxxxx 2007-Arnie [phone] [address] Medicare A & B t 2 [id number] ANALILIA BEDOLLA [phone] documented as of this encounter
--- OUTSIDE RECORDS SUMMARY | 2019-09-15 09:16 | XMS REPORT | Summary of Care ---
:1940 Author Organization [facility] - Health Address [address] [place] [address] Care Team Providers Name Role Phone MD Christiano Primary Care Provider Reason for Visit Reason Comments Refill Request Encounter Details Date Type Department Care Team Description 07/26/2019 Refill [facility] Family Medicine Dileep Darling MD Refill Request - [address] [place] [address] [place] [address] [place] [address] [phone] Allergies Active Allergy Reactions Severity Noted Date Comments Chocolate Flavor Anxiety 04/20/2015 Nitrofurantoin Unknown - See 04/20/2015 Monohyd/M-Cryst comments Morphine Nausea and/or 12/19/2016 Vomiting Penicillin Other - See comments 12/19/2016 Pt stat es "several family members are allergic so i t hink i am" documented as of this encounter (statuses as of 07/26/2019) Medications Medication Sig Dispensed Refills Start Date End Date Status Cholecalciferol, Take 1,000 0 Ac tive Vitamin D3, Units by (VITAMIN D3) 1,000 mouth every unit capsule morning. lovastatin 20 mg Take 20 mg 0 11/02/2016 A ctive tablet by mouth daily. ciclopirox 8 % Apply to 6.6 mL 2 02/04/2017 Acti ve solutionIndications area(s) at : Onychomycosis bedtime. Apply to dry nail/surroun ding skin. Reapply nightly. Remove with alcohol, trim/file nails on day 7. repeat traMADOL (ULTRAM) Take 1 20 tablet 0 12/27/2017 A ctive 50 mg tablet tablet by mouth every 6 (six) hours as needed for Pain (scale 4-6). mupirocin 2 % Apply to 22 g 0 12/30/2017 Activ e ointmentIndications area(s) 3 : Abscess (three) times daily. rivaroxaban 15 mg Take 1 0 01/18/2018 A ctive tablet tablet by mouth daily. hydrocortisone Insert into 30 g 1 04/07/2018 A ctive (PROCTOSOL HC) 2.5 rectum 2 % rectal cream (two) times daily. levothyroxine 88 TAKE 1 90 tablet 1 03/01/2019 Ac tive mcg TABLET BY tabletIndications: MOUTH ONCE Hypothyroidism, DAILY IN THE unspecified type MORNING Ferrous Take 1 90 tablet 1 03/16/2019 Active Fumarate-Folic Acid tablet by (HEMATINIC/FOLIC mouth daily. ACID) 324 mg (106 mg iron)-1 mg TabIndications: Iron deficiency anemia, unspecified iron deficiency anemia type rivastigmine 4.6 Apply 1 30 Patch 1 06/06/2019 Ac tive mg/24 hr Patch to patchIndications: skin daily. 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 Dizziness, PAF (paroxysmal atrial fibrillation) mirtazapine 7.5 mg Take 1 30 tablet 1 07/25/2019 Active tablet tablet by mouth at bedtime. metoprolol Take 1 30 tablet 0 07/26/2019 Active succinate XL 50 mg tablet by 24 hr mouth daily. tabletIndications: Dizziness, PAF (paroxysmal atrial fibrillation) metoprolol Take 1 30 tablet 0 06/27/2019 Disconti nued succinate XL 50 mg tablet by 0 ( Reorder) 24 hr mouth daily. tabletIndications: Dizziness, PAF (paroxysmal atrial fibrillation) documented as of this encounter (statuses as of 07/26/2019) Active Problems Problem Noted Date LOC (loss of consciousness) 06/25/2019 PAF (paroxysmal atrial fibrillation) 06/25/2019 Orthostatic hypotension 06/25/2019 Dizziness 06/24/2019 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 Right arm pain 2016 Essential hypertension 07/12/2015 Hyperlipemia 07/12/2015 Hypothyroidism 07/12/2015 Iron (Fe) deficiency anemia 07/12/2015 Vitamin D deficiency 07/12/2015 documented as of this encounter (statuses as of 07/26/2019) Immunizations Name Administration Dates Next Due Influenza [...] of this encounter Implants Implanted Type Area Fiber Picker Device Shelf Model / Identifier Expiration Serial / Lot Date Cement CEMENT Right: [employer]omet 01/31/2018 [id number] / Implanted: Qty: 1 on 12/19/2016 by Jude Rios MD at [facility] Shoulder 6 195-1-001 / [id number] Cement CEMENT Right: [employer] 04/02/2018 6195-1-00 1 / Implanted: Qty: 1 on 12/19/2016 by Jude Rios MD at [facility] Shoulder 6 [id number] / [id number] Central Screw SCREW Right: [employer] 12/11/2026 [id number] 5 / Implanted: Qty: 1 on 12/19/2016 by Jude Rios MD at [facility] Shoulder 7 [id number] / [id number] Locking Screw SCREW Right: [employer] 09/16/2026 [id number] 0 / Implanted: Qty: 1 on 12/19/2016 by Jude Rios MD at [facility] Shoulder 4 [id number] / [id number] Locking Screw SCREW Right: [employer] 11/04/2026 13150 0 / Implanted: Qty: 1 on 12/19/2016 by Jude Rios MD at [facility] Shoulder 2 [id number] / [id number] Nonlocking Screw SCREW Right: [employer] 10/15/2026 18 0557 / Implanted: Qty: 1 on 12/19/2016 by Jude Rios MD at [facility] Shoulder 8 [id number] / [id number] Nonlocking Screw SCREW Right: [employer] 09/13/2026 18 0557 / Implanted: Qty: 1 on 12/19/2016 by Jude Rios MD at [facility] Shoulder 4 [id number] / [id number] Bone Cement Restrictor SHOULDER Right: [employer]omet 021 [id number] / Implanted: Qty: 1 on 12/19/2016 by Jude Rios MD at [facility] Shoulder 3 [id number] / [id number] Humeral Bearing SHOULDER Right: [employer] 11/17/2021 XL- [id number] / Implanted: Qty: 1 on 12/19/2016 by Jude Rios MD at [facility] Shoulder 2 [id number] / [id number] Humeral Tray With Locking Ring SHOULDER Right: [employer] 09/05/2026 [id number] / Implanted: Qty: 1 on 12/19/2016 by Jude Rios MD at [facility] Shoulder 2 [id number] / [id number] Mini Baseplate SHOULDER Right: [employer] 10/09/2026 0100 13280 / Implanted: Qty: 1 on 12/19/2016 by Jude Rios MD at [facility] Shoulder 1 [id number] / [id number] [employer] SHOULDER Right: [employer] 11/26/2026 [id number] / Implanted: Qty: 1 on 12/19/2016 by Jude Rios MD at [facility] Shoulder 7 [id number] / [id number] Humeral Fracture Stem Stem Right: [employer]omet 08/30/19 27 [id number] / Implanted: Qty: 1 on 12/19/2016 by Jude Rios MD at [facility] Shoulder 4 [id number] / [id number] documented as of this encounter Results Not on filedocumented in this encounter Visit Diagnoses Diagnosis Dizziness Dizziness and giddiness PAF (paroxysmal atrial fibrillation) Atrial fibrillation documented in this encounter Insurance Payer Benefit Plan / Subscriber ID Effective Dates Phone Addre ss Type Group MEDICARE MEDICARE PART xxxxxxxxxxx 2007-Arnie [phone] [address] Medicare A & B t 2 [id number] [place] [phone] documented as of this encounter
--- OUTSIDE RECORDS SUMMARY | 2019-09-15 09:16 | XMS REPORT | Summary of Care ---
:1940 Author Organization [facility] Address [address] [place] [id number] Care Team Providers Name Role Phone MD Christiano Primary Care Provider Reason for Visit Reason Comments Assessment restlesss Anxiety Encounter Details Date Type Department Care Team Description 07/20/2019 Telephone [facility] Kosta Maldonado, Assess ment Neurology-Hiram FARIAS (restlesss); Anxiety [address] [place] [phone] Allergies Active Allergy Reactions Severity Noted Date Comments Chocolate Flavor Anxiety 04/20/2015 Nitrofurantoin Unknown - See 04/20/2015 Monohyd/M-Cryst comments Morphine Nausea and/or 12/19/2016 Vomiting Penicillin Other - See comments 12/19/2016 Pt stat es "several family members are allergic so i t hink i am" documented as of this encounter (statuses as of 07/25/2019) Medications Medication Sig Dispensed Refills Start Date [...] atrial fibrillation) mirtazapine 7.5 mg Take 1 tablet by 30 tablet 1 07/25/2019 Active tablet mouth at bedtime. 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 Right arm pain 2016 Essential hypertension 07/12/2015 Hyperlipemia 07/12/2015 Hypothyroidism 07/12/2015 Iron (Fe) deficiency anemia 07/12/2015 Vitamin D deficiency 07/12/2015 documented as of this encounter (statuses as of 07/25/2019) Immunizations Name Administration Dates Next Due Influenza [...] of this encounter Implants Implanted Type Area Pipe Bowl Paint Trimmer Device Shelf Model / Identifier Expiration Serial / Lot Date Cement CEMENT Right: [employer]omet 01/31/2018 [id number] / Implanted: Qty: 1 on 12/19/2016 by Jude Rios MD at [facility] Shoulder 6 195-1-001 / [id number] Cement CEMENT Right: [employer] 04/02/2018 6195-1-00 1 / Implanted: Qty: 1 on 12/19/2016 by Jude Rios MD at [facility] Shoulder 6 [id number] / [id number] Central Screw SCREW Right: [employer] 12/11/2026 [id number] / Implanted: Qty: 1 on 12/19/2016 by Jude Rios MD at [facility] Shoulder 7 [id number] / [id number] Locking Screw SCREW Right: [employer] 09/16/2026 [id number] 0 / Implanted: Qty: 1 on 12/19/2016 by Jude Rios MD at [facility] Shoulder 4 [id number] / [id number] Locking Screw SCREW Right: [employer] 11/04/2026 [id number] 0 / Implanted: Qty: 1 on 12/19/2016 by Jude Rios MD at [facility] Shoulder 2 [id number] / [id number] Nonlocking Screw SCREW Right: [employer] 10/15/2026 18 0557 / Implanted: Qty: 1 on 12/19/2016 by Jude Rios MD at [facility] Shoulder 8 [id number] / [id number] Nonlocking Screw SCREW Right: [employer] 09/13/2026 18 0557 / Implanted: Qty: 1 on 12/19/2016 by Jude Rios MD at [facility] Shoulder 4 [id number] / [id number] Bone Cement Restrictor SHOULDER Right: [employer] 021 [id number] / Implanted: Qty: 1 on 12/19/2016 by Jude Rios MD at [facility] Shoulder 3 [id number] / [id number] Humeral Bearing SHOULDER Right: [employer] 11/17/2021 XL- [id number] / Implanted: Qty: 1 on 12/19/2016 by Jude Rios MD at [facility] Shoulder 2 [id number] / [id number] Humeral Tray With Locking Ring SHOULDER Right: [employer] 09/05/2026 [id number] / Implanted: Qty: 1 on 12/19/2016 by Jude Rios MD at [facility] Shoulder 2 [id number] / [id number] Mini Baseplate SHOULDER Right: [employer] 10/09/2026 0100 [id number] / Implanted: Qty: 1 on 12/19/2016 by Jude Rios MD at [facility] Shoulder 1 [id number] / [id number] [employer] SHOULDER Right: [employer] 11/26/2026 [id number] / Implanted: Qty: 1 on 12/19/2016 by Jude Rios MD at [facility] Shoulder 7 [id number] / [id number] Humeral Fracture Stem Stem Right: [employer] 08/30/19 27 [id number] / Implanted: Qty: 1 on 12/19/2016 by Jude Rios MD at [facility] Shoulder 4 [id number] / [id number] documented as of this encounter Results Not on filedocumented in this encounter Insurance Payer Benefit Plan / Subscriber ID Effective Dates Phone Addre ss Type Group MEDICARE MEDICARE PART xxxxxxxxxxx 2007-Arnie [phone] Medicare A & B t 2 [id number] ANALILIA BEDOLLA [phone] documented as of this encounter
--- OUTSIDE RECORDS SUMMARY | 2019-09-15 09:18 | XMS REPORT | Summary of Care ---
:1940 Author Organization [facility] Address [address] [place] [address] Care Team Providers Name Role Phone MD Christiano Primary Care Provider Reason for Referral Other (Routine) Status Reason Specialty Diagnoses / Referred By Referred To Procedures Contact Contact New Request Diagnoses Injury of head, initial encounter Elliot Chiang MD Humphrey, Laurel, Procedures Discharge Follow-up: Specialty Provider AUTUMN NAVARRO; 1 Week [address] [facility] [place], [place] [address] [facility] [address] [facility] Phone: Brigido [address] [place] [address] Fax: Other (Routine) Status Reason Specialty Diagnoses / Referred By Referred To Procedures Contact Contact New Request Diagnoses Syncope, unspecified syncope type Elliot Chiang MD Dabaghi, Salim F, Procedures Discharge Follow-up: Specialty Provider ELIZABETH BANKS; 1 Week 301 [facility] [place], [place] [address] [facility] [address] 201 Phone: RT 1500AD [phone] [place] [address] Fax: (Routine) Status Reason Specialty Diagnoses / Referred By Referred To Procedures Contact Contact New Request Diagnoses Syncope, unspecified syncope type Elliot Chiang MD Rogers, Anthony, Procedures Discharge Follow-up: PCP SALAZAR BOUCHER; [address] [place] [address] DOROTHEA Almonte [address] [address] [address] Phone: DOROTHEA LORENZO [phone] [address] Fax: (Routine) Status Reason Specialty Diagnoses / Referred By Referred To Procedures Contact Contact New Request Vascular Procedures Varun Frankel Sonography CAROTID DUPLEX MD Angi BILATERAL BY [address] [facility] [place] [place] [address] MRI/CAT Scan (Routine) Status Reason Specialty Diagnoses / Referred By Referred To Procedures Contact Contact Authorized Diagnostic Diagnoses Injury of head, initial encounter Barb Knowles, Radiology Procedures CT HEAD WO CONTRAST [address] [place] [address]. [address] [place] [address] MRI/CAT Scan (STEFAN) Status Reason Specialty Diagnoses / Referred By Referred To Procedures Contact Contact Authorized Diagnostic Diagnoses Opacity of lung on imaging study Barb Knowles, Radiology Procedures CT THORAX WO CONTRAST [address] [place] [address]. [address] [place] [address] Radiology Services (STAT) Status Reason Specialty Diagnoses / Referred By Referred To Procedures Contact Contact New Request Diagnostic Diagnoses Fall, initial encounter Injury of head, initial encounter Contusion of scalp, initial encounter LOC (loss of consciousness) Neda Kearney, Radiology Procedures XR CHEST 1 VW PAC [address] [facility] [place] [address] MRI/CAT Scan (STAT) Status Reason Specialty Diagnoses / Referred By Referred To Procedures Contact Contact New Request Diagnostic Diagnoses Fall, initial encounter Neda Kearney, Radiology Procedures CT CERVICAL SPINE WO CONTRAST PAC [address] [place] [address] MRI/CAT Scan (STAT) Status Reason Specialty Diagnoses / Referred By Referred To Procedures Contact Contact New Request Diagnostic Diagnoses Fall, initial encounter Neda Kearney, Radiology Procedures CT HEAD WO CONTRAST PAC [address] [place] [address] [place] [address] Reason for Visit Reason Comments Fall Auth/Cert Status Reason Specialty Diagnoses / Referred By Referred To Procedures Contact Contact Emergency Medicine [facility] Dept [address] [place] [address] [place] [address] Fax: Encounter Details Date Type Department Care Team Description 08/11/2019 - Emergency ADC Medicine Surgery Sonja Kearney, PAC [address] [place] [address] [place] [address] Syncope 08/12/2019 Unit Pepito Marin, PT ESC[facility] [address] [facility] [address] [place] [address] [place] [address] Barb Gil MD [address] [place], [place] [address]vd. [address] [place], [place] [id number] [place] [address] Allergies Active Allergy Reactions Severity Noted Date Comments Chocolate Flavor Anxiety 04/20/2015 Nitrofurantoin Unknown - See 04/20/2015 Monohyd/M-Cryst comments Morphine Nausea and/or 12/19/2016 Vomiting Penicillin Other - See comments 12/19/2016 Pt stat es "several family members are allergic so i t hink i am" documented as of this encounter (statuses as of 08/12/2019) Medications Medication Sig Dispensed Refills Start Date End Date Status lovastatin 20 mg Take 20 mg 0 11/02/2016 A ctive tablet by mouth daily. traMADOL (ULTRAM) Take 1 20 tablet 0 12/27/2017 A ctive 50 mg tablet tablet by mouth every 6 (six) hours as needed for Pain (scale 4-6). mupirocin 2 % Apply to 22 g 0 12/30/2017 Activ e ointmentIndications area(s) 3 : Abscess (three) times daily. Ferrous Take 1 90 tablet 1 03/16/2019 Active Fumarate-Folic Acid tablet by (HEMATINIC/FOLIC mouth daily. ACID) 324 mg (106 mg iron)-1 mg TabIndications: Iron deficiency anemia, unspecified iron deficiency anemia type vitamin B-12 1,000 Take 1 30 tablet 0 06/26/2019 Active mcg tablet by tabletIndications: mouth daily. Dizziness, PAF (paroxysmal atrial fibrillation) metoprolol Take 1 30 tablet 0 07/26/2019 Active succinate XL 50 mg tablet by 24 hr mouth daily. tabletIndications: Dizziness, PAF (paroxysmal atrial fibrillation) doxycycline Take 100 mg 0 Active monohydrate 100 mg by mouth 2 capsule (two) times daily. ciprofloxacin HCl Take 500 mg 0 Active 500 mg tablet by mouth 2 (two) times daily. hydrocortisone Insert 1 0 Activ e (PROCTOSOL HC Dose into RECTAL) rectum 2 (two) times daily. rivastigmine 4.6 Apply 1 0 06/09/2019 Ac tive mg/24 hr patch Patch to skin daily. ciclopirox (PENLAC) Apply 1 Dose 0 Active 8 % solution to area(s) at bedtime. Apply to Nails. Cholecalciferol, Take 1 0 Act loni Vitamin D3, capsule by (VITAMIN D3) 25 mcg mouth daily. (1,000 unit) capsule lactobacillus Take 1 28 tablet 0 08/12/2019 Activ e acidophilus 25 tablet by 0 million cell -100 mouth 4 mg (four) times captabIndications: daily for 7 Right arm pain days. levothyroxine 100 Take 1 30 tablet 0 08/13/2019 A ctive mcg tablet by 0 tabletIndications: mouth every Hypothyroidism, morning for unspecified type 30 days. mirtazapine 15 mg Take 1 30 tablet 0 08/12/2019 A ctive tabletIndications: tablet by 0 Dementia with mouth at behavioral bedtime for disturbance, 30 days. unspecified dementia type Cholecalciferol, Take 1,000 0 Di scontinued Vitamin D3, Units by 0 (Error) (VITAMIN D3) 1,000 mouth every unit capsule morning. ciclopirox 8 % Apply to 6.6 mL 2 02/04/2017 Disc ontinued solutionIndications area(s) at 0 (Error) : Onychomycosis bedtime. Apply to dry nail/surroun ding skin. Reapply nightly. Remove with alcohol, trim/file nails on day 7. repeat rivaroxaban 15 mg Take 1 0 01/18/2018 D iscontinued tablet tablet by 0 mouth daily. hydrocortisone Insert into 30 g 1 04/07/2018 D iscontinued (PROCTOSOL HC) 2.5 rectum 2 0 ( Error) % rectal cream (two) times daily. levothyroxine 88 TAKE 1 90 tablet 1 03/01/2019 Di scontinued mcg TABLET BY 0 tabletIndications: MOUTH ONCE Hypothyroidism, DAILY IN THE unspecified type MORNING rivastigmine 4.6 Apply 1 30 Patch 1 06/06/2019 Di scontinued mg/24 hr Patch to 0 (Error) patchIndications: skin daily. Late onset Alzheimer's disease without behavioral disturbance mirtazapine 7.5 mg Take 1 30 tablet 1 07/25/2019 Discontinued tablet tablet by 0 (Error) mouth at bedtime. mirtazapine 7.5 mg Take 7.5 mg 0 Discontinued tablet by mouth at 0 bedtime. documented as of this encounter (statuses as of 08/12/2019) Active Problems Problem Noted Date Opacity of lung on imaging study 08/12/2019 Syncope 08/11/2019 LOC (loss of consciousness) 06/25/2019 PAF (paroxysmal atrial fibrillation) 06/25/2019 Orthostatic hypotension 06/25/2019 Dizziness 06/24/2019 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 Right arm pain 2016 Essential hypertension 07/12/2015 Hyperlipemia 07/12/2015 Hypothyroidism 07/12/2015 Iron (Fe) deficiency anemia 07/12/2015 Vitamin D deficiency 07/12/2015 documented as of this encounter (statuses as of 08/12/2019) Immunizations Name Administration Dates Next Due Influenza [...] Sign Reading Time Taken Comments Blood Pressure 171/76 08/12/2019 4:00 PM CDT Pulse 87 08/12/2019 4:00 PM CDT Temperature 36.7 C (98 F) 08/12/2019 4:00 PM CDT Respiratory Rate 20 08/12/2019 4:00 PM CDT Oxygen Saturation 98% 08/12/2019 4:00 PM CDT Inhaled Oxygen Concentration - - Weight 72.6 kg (160 lb) 08/11/2019 1:24 PM CDT Height - - Body Mass Index 28.34 06/24/2019 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 Banks) presents after falling (standing in kitchen) and hit head and possible some convulsions. Unclear story as daughter wasn't there and witnessed by another family member. Patient not able to give proper history due to dementia. Currently patient at baseline orientation, knows self and maybe place. She denies any acute symptoms of headaches, vision changes, chest pain, sob, fevers/chills, dysuria but her ROS is not reliable given dementia. ER and general surgery saw patient and placed sutures. There is concern for continuous oozing. HOSPITAL COURSE: Patient is a 78F with advanced dementia and A-fib on Xarelto, who presented with a fall at home. # Recurrent syncope and fall, unclear cause Recent work up during last stay was negative. Patient was seen by Cardiology/Dr. Frankel. Carotid doppler showed no stenosis this time. # ? Possible convulsion at home Seizure precautions. CT head and CT cervical spine negative. # scalp laceration and hematoma - laceration sutured in ER - follow with surgery - dressing with pressure - hold Xarelto - follow with Dr. Banks/cardiology regarding resuming of Xarelto # diaphram hernia on CT chest - incidental finding # Left moderate hiatal hernia # Right should wound. Hx of right shoulder surgery about 2-[address] Vallecillo Follows [place] care physician [place] Continue home cipro and doxy Probiotics # Chronic atrial fibrillation Hold xarelto until f/u with Dr. Banks Metoprolol xl # Hypothyroidism - TSH high. Levothyroxine dose increased # Advanced dementia with behavior disturbance - Follows Dr. Maldonado - mirtazapine increased dose at night, 7.5 a day wasn't working - Called the patient's daughter, who agreed with SNF placement. REVIEW OF SYSTEMS: Unable to obtain due to dementia DISCHARGE PHYSICAL EXAM: Most recent vital signs: Temp: 36.7 C (98 F) - BP: (!) 171/76 - Pulse: 87 - Resp: 20 - SpO2: 98 % General: alert and awake, confused; no apparent distress HEENT: pupils equal, round, reactive to light; extraocular movements intact; oropharynx clear; moistmucous membranes Neck: supple, no lymphadenopathy, no bruits, no JVD Lungs: clear to auscultation bilaterally Cardio: S1, S2 normal; no murmurs, rubs or gallops Abdomen: soft; non-tender; non-distended; normoactive bowel sounds Extremities: no clubbing, cyanosis, or edema Skin: hematoma, chronic, at right shoulder; scalp laceration s/p suturing CONSULTS: Surgery Cardiology PROCEDURES: Laceration suturing LABS PENDING: None DIET: regular ACTIVITY: as tolerated MEDS: Current Discharge Medication List START taking these medications Details lactobacillus acidophilus (ACIDOPHILLUS) 1 tablet Take 1 tablet by mouth 4 (four) times daily. Qty: 28 tablet, Refills: 0 Start date: 08/12/2019, End date: 08/19/2019 Associated Diagnoses: Right arm pain CONTINUE these medications which have CHANGED Details levothyroxine (SYNTHROID) 100 mcg Take 100 mcg by mouth every morning. Qty: 30 tablet, Refills: 0 Start date: 08/13/2019, End date: 09/12/2019 Associated Diagnoses: Hypothyroidism, unspecified type mirtazapine (REMERON) 15 mg Take 15 mg by mouth at bedtime. Qty: 30 tablet, Refills: 0 Start date: 08/12/2019, End date: 09/11/2019 Associated Diagnoses: Dementia with behavioral disturbance, unspecified dementia type CONTINUE these medications which have NOT CHANGED Details Cholecalciferol (Vitamin D3) (VITAMIN D3) 1 capsule Take 1 capsule by mouth daily. ciclopirox (PENLAC) 1 Dose Apply 1 Dose to area(s) at bedtime. Apply to Nails. ciprofloxacin HCl (CIPRO) 500 mg Take 500 mg by mouth 2 (two) times daily. doxycycline monohydrate (MONODOX) 100 mg Take 100 mg by mouth 2 (two) times daily. hydrocortisone (PROCTOSOL HC RECTAL) 1 Dose Insert 1 Dose into rectum 2 (two) times daily. rivastigmine (EXELON) 1 Patch Apply 1 Patch to skin daily. metoprolol succinate XL (TOPROL XL) 50 mg Take 50 mg by mouth daily. Qty: 30 tablet, Refills: 0 Associated Diagnoses: Dizziness; PAF (paroxysmal atrial fibrillation) vitamin B-12 (CYANOCOBALAMIN) 1,000 mcg Take 1,000 mcg by mouth daily. Qty: 30 tablet, Refills: 0 Associated Diagnoses: Dizziness; PAF (paroxysmal atrial fibrillation) Ferrous Fumarate-Folic Acid (HEMOCYTE-F) 1 tablet Take 1 tablet by mouth daily. Qty: 90 tablet, Refills: 1 Associated Diagnoses: Iron deficiency anemia, unspecified iron deficiency anemia type mupirocin 2 % ointment Apply to area(s) 3 (three) times daily. Qty: 22 g, Refills: 0 Associated Diagnoses: Abscess traMADol (ULTRAM) 50 mg Take 50 mg by mouth every 6 (six) hours as needed for Pain (scale 4-6). Qty: 20 tablet, Refills: 0 Comments: Tee Landrum PA-C ZENA# [id number] [place] Lic.# [id number] NPI# [id number] lovastatin (MEVACOR) 20 mg Take 20 mg by mouth daily. STOP taking these medications rivaroxaban (XARELTO) 15 mg Comments: Reason for Stopping: SIGNIFICANT LAB/X-RAYS: Lab results: CBC BMP PT/INR WBC x10^3 (/CMM) Date Value 10/08/2004 6.2 WBC (10*3/L) Date Value 08/12/2019 5.41 NA Date Value 08/12/2019 137 mmol/L 10/08/2004 138 MMOL/L No results found for: PT RBC x10^6 (/CMM) Date Value 10/08/2004 4.31 RBC (10*6/L) Date Value 08/12/2019 3.10 (L) K Date Value 08/12/2019 3.5 mmol/L 10/08/2004 3.6 MMOL/L PT INR (no units) Date Value 10/08/2004 0.9 INR (no units) Date Value 07/24/2019 1.2 PLT x10^3 (/CMM) Date Value 10/08/2004 290 PLT (10*3/L) Date Value 08/12/2019 231 CALCIUM Date Value 08/12/2019 8.3 mg/dL (L) 10/08/2004 9.8 MG/DL HGB Date Value 08/12/2019 9.1 g/dL (L) 10/08/2004 12.0 G/DL CL Date Value 08/12/2019 107 mmol/L 10/08/2004 100 MMOL/L aPTT HCT (%) Date Value 08/12/2019 27.9 (L) 10/08/2004 37.5 BUN Date Value 08/12/2019 11 mg/dL 10/08/2004 11 MG/DL APTT (SEC) Date Value 10/08/2004 22 (L) APTT Patient (Seconds) Date Value 07/24/2019 25 CREATININE Date Value 08/12/2019 0.57 mg/dL 10/08/2004 0.82 MG/DL GLUCOSE Date Value 08/12/2019 94 mg/dL 10/08/2004 90 MG/DL CO2 TOTAL Date Value 08/12/2019 25 mmol/L 10/08/2004 25 MMOL/L Imaging results: Xr Chest 1 Vw Result Date: 08/11/2019 1. Left lower lobe opacities again seen likely represent combination of atelectasis or scarring. 2. A left-sided moderate-sized hiatal hernia is again seen. Xr Chest 1 Vw Result Date: 07/24/2019 Left lower lobe opacities likely representing atelectasis/scarring. Infection cannot be excluded. Moderate-sized hiatal hernia, unchanged. Preliminary Report Dictated by Resident: Pierre Loera I, Randall Olivarez MD., have reviewed this study and agree with the above report. Ct Cervical Spine Wo Contrast Result Date: 07/24/2019 No acute intracranial findings. No acute osseous findings in the cervical spine. Ct Head Wo Contrast Result Date: 08/12/2019 Large scalp hematoma along the vertex on the right with interval decrease in size in comparison to the prior exam currently measuring 1.3 cm in thickness and 4.9 cm in length. A 0.4 cm hyperdense focusseen in along the skin at the site of the hematoma inferiorly and may represent foreign body, correlate with physical exam. Motion degradation inferiorly. No gross acute intracranial hemorrhage or masseffect. Preliminary Report Dictated by Resident: Maranda Mike MD., have reviewed this study and agree with the above report. Ct Head Wo Contrast Result Date: 08/11/2019 A large, mixed density posterior scalp hematoma with evidence of ongoing bleeding is noted. There isno underlying calvarial fracture or acute intracranial abnormality. Ct Head Wo Contrast Result Date: 07/24/2019 No acute intracranial findings. No acute osseous findings in the cervical spine. Ct Thorax Wo Contrast Result Date: 08/12/2019 1. 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 This has resulted in atelectasis of the left lower lung. Xr Foot 3+ Vw Left Result Date: 07/24/2019 Displaced angulated fracture of the second toe distal P1. Diffuse osteopenia. Naviculocuneiform osteoarthrosis with overlying soft tissue swelling Preliminary Report Dictated by Resident: Jeffrey Garcia MD., have reviewed this study and agree with the above report. Xr Foot <3 Vw Left Result Date: 07/24/2019 Successful reduction of the second toe P1 fracture. Preliminary Report Dictated by Resident: Jeffrey Bailey MD., have reviewed this study and agree with the above report. DISPOSITION: SNF CONDITION: Good FOLLOW-UP: Cardiology Surgery PCP I spent 60 minutes including a [id number]-ym-hlok visit, discussing the plan of care with the patient, patient education regarding medication compliance, exam, and coordination of discharge Electronically Signed by: Elliot Chiang MD 08/12/2019 4:52 PM documented in this encounter Discharge Instructions InstructionsNeda Kearney, PAC - 08/11/2019Apply a pressure dressing to the patient's scalp to keep the bleeding under control. Monitor the patient for changes to her mental status and bring her back for evaluation if she worsens or starts having continuous vomiting. Follow up with her PCP for further evaluation of her scalp wound in a few days and then again in 7-10 days for staple removal. AttachmentsThe following attachments cannot be sent through Care Everywhere. Scalp Contusion (Icelandic)Head Injury (Adult) (Icelandic)Levothyroxine tablets (Icelandic)Mirtazapine tablets (Icelandic)Ciprofloxacin tablets (Icelandic)Doxycycline oral tablets (Periodontitis) (Icelandic)documented in this encounter Progress Notes Adriano Gregory LMSW - 08/12/2019 5:08 PM CDTSocial Work Note [place] confirmation no [id number]. Please call Radha @ [phone] [facility] Team Physician, Care Management Carmelo Herring RN - 08/12/2019 5:00 PM CDT Care Management Discharge Disposition Note (DCDN) 5-2-1 Interventions: Clear discharge plan 5-2-1 Providers: Ecd/Team Physician 5-2-1 Patient Capacity Improvements: Transportation arrangements Discharge Plan for ongoing care and services[facility] (LTC) Is this a new referral: Yes Patient Choice completed for referred services: Yes DME location: Other DME location: Durable Medical Equipment: Home Health location: Discharge location(s): SNF location: [address] [address] (Ph) [phone] (F) [phone] [address] [address] [id number] (Ph) [phone] (F) [phone] Patient choice completed for referred services: Yes Discussed with patient/patients family involved in decision making: Yes Patient or family caregiver understands, and agrees with discharge plan. Community resources/referrals made or provided to patient: No Resources/Referrals: Transportation: Wheelchair Van Mental Status: Alert & Oriented to Person Living Arrangement: Home Other living arrangement: [facility] [place] [address] Funding Resources: Medicare A & B Nursing informed of discharge plan: Yes Name of RN informed: Clarita Estimated discharge date: 08/12/19 Time: 1700 Additional Information: no CM/SW Name & Contact number: Carmelo Gifford RN . Carmelo Gifford RN, BSN [facility] Ecd [phone] The following information has been provided to the facility noted above: reason for the patient discharge or transfer; patients physical and psychosocial status; summary of care, treatment, servicesprovided to patient; and the patient progress toward goals. Autumn Yan MD - 08/12/2019 3:39 PM CDT GENERAL SURGERY DAILY PROGRESS NOTE Patient Name: Jose G Iqbal Date of : 1940 Date: 08/12/2019 24 Hour Events: No acute events overnight. Physical Exam: Vital Signs Temp: [36.4 C (97.5 F)-36.9 C (98.5 F)] Heart Rate (monitor): [63-88] Pulse: [63-132] Resp: [16-27] BP: (110-186)/(55-159) MAP (mmHg): [89-168] Constitutional: Awake, alert, oriented, in no acute distress Head: Normocephalic, atraumatic Eyes: Extraocular movements grossly intact, pupils equal and reactive to light and accomodation, anicteric sclerae Ears: Normal external exam Nose: Normal external exam Mouth: Moist mucous membranes Neck: Supple, no jugular venous distention Respiratory: No respiratory distress Musculoskeletal: Normal tone and strength, normal range of motion Vascular: Radial and dorsalis pedis pulses palpable bilaterally Neurologic: CN II through XII grossly intact, no focal deficits Skin: Warm and dry, capillary refill <2 seconds, no jaundice, scalp laceration without active bleeding, contusion of scalp surrounding the laceration, moderate sized hematoma to right anterior shoulder Labs: I independently reviewed the patient's labs. Results for JOSE G IQBAL ( ) as of 08/12/2019 15:40 Ref. Range 08/12/2019 03:49 WBC x10^3 Latest Ref Range: 4.30 - 11.10 10*3/L 5.41 RBC x10^6 Latest Ref Range: 3.93 - 5.25 10*6/L 3.10 (L) HGB Latest Ref Range: 11.6 - 15.0 g/dL 9.1 (L) HCT Latest Ref Range: 35.7 - 45.2 % 27.9 (L) MCV Latest Ref Range: 80.6 - 95.5 fL 90.0 MCH Latest Ref Range: 25.9 - 32.8 pg 29.4 MCHC Latest Ref Range: 31.6 - 35.1 g/dL 32.6 RDW-SD Latest Ref Range: 39.0 - 49.9 fL 49.8 RDW-CV Latest Ref Range: 12.0 - 15.5 % 14.9 PLT x10^3 Latest Ref Range: 166 - 358 10*3/L 231 MPV Latest Ref Range: 9.5 - 12.9 fL 9.5 NRBC /100 WBC Latest Ref Range: 0.0 - 10.0 /100 WBCs 0.0 NRBC x10^3 Latest Units: 10*3/L <0.01 GRAN MAT (NEUT) % Latest Units: % 73.7 IMM GRAN % Latest Units: % 0.40 LYMPH% Latest Units: % 17.2 MONO % Latest Units: % 7.6 EOS % Latest Units: % 0.4 BASO % Latest Units: % 0.7 GRAN MAT x10^3(ANC) Latest Ref Range: 1.88 - 7.09 10*3/uL 3.99 IMM GRAN x10^3 Latest Ref Range: 0.00 - 0.06 10*3/uL <0.03 LYMPH x10^3 Latest Ref Range: 1.32 - 3.29 10*3/uL 0.93 (L) MONO x10^3 Latest Ref Range: 0.33 - 0.92 10*3/uL 0.41 EOS x10^3 Latest Ref Range: 0.03 - 0.39 10*3/uL <0.03 (L) BASO x10^3 Latest Ref Range: 0.01 - 0.07 10*3/uL 0.04 NA Latest Ref Range: 135 - 145 mmol/L 137 K Latest Ref Range: 3.5 - 5.0 mmol/L 3.5 CL Latest Ref Range: 98 - 108 mmol/L 107 CO2 TOTAL Latest Ref Range: 23 - 31 mmol/L 25 AGAP Latest Ref Range: 2 - 16 5 BUN Latest Ref Range: 7 - 23 mg/dL 11 GLUCOSE Latest Ref Range: 70 - 110 mg/dL 94 CREATININE Latest Ref Range: 0.50 - 1.04 mg/dL 0.57 eGFR CALCULATION (non ) Latest Units: mL/min/1.73m2 103.1 eGFR CALCULATION () Latest Units: mL/min/1.73m2 125.0 CALCIUM Latest Ref Range: 8.6 - 10.6 mg/dL 8.3 (L) MAGNESIUM Latest Ref Range: 1.7 - 2.4 mg/dL 1.8 TROPONIN I Latest Ref Range: <=0.034 ng/mL <0.012 NT-proBNP Latest Ref Range: <=450 pg/mL 774 (H) Radiology: CT HEAD WO CONTRAST HISTORY: 78-year-old female with PMH of dementia and atrial fibrillation and history of frequent falls, to be evaluated after head trauma and possible convulsions. COMPARISON: CT head without contrast 08/11/2019 TECHNIQUE: Noncontrast CT imaging of the head was performed and coronal and sagittal reconstructions were obtained and reviewed. FINDINGS: Mild motion degradation inferiorly. Large scalp hematoma is noted along the vertex and to the right, has decreased in size from 2.1 x 4.2 x 5.6 cm (AP by TV by CC) to 1.3 x 4.4 x 4.9 cm (AP by TV by CC). 4 mm hyperdensity inferior aspect of the scalp hematoma in the dermis may reflect a foreign body, correlate with physical exam. Unchanged mildly prominent lateral and third ventricles likely secondary to volume loss. No midline shift or pathological extra-axial fluid collection is present. The basal cisterns are unremarkable. There is no gross acute intracranial hemorrhage or significant mass effect. Scattered periventricular and deep white matter hypoattenuating foci, nonspecific, can be seen with chronic small vessel disease. Bilateral basal ganglial calcifications are noted. The keen-white matter differentiation is preserved. The mastoid air cells and paranasal air sinuses are not well evaluated due to motion artifact. No definite calvarial fracture. IMPRESSION Large scalp hematoma along the vertex on the right with interval decrease in size in comparison to the prior exam currently measuring 1.3 cm in thickness and 4.9 cm in length. A 0.4 cm hyperdense focus seen in along the skin at the site of the hematoma inferiorly and may represent foreign body, correlate with physical exam. Motion degradation inferiorly. No gross acute intracranial hemorrhage or mass effect. EXAM: CT scan of the chest without contrast HISTORY: Dyspnea, chronic, neg or nondiagnostic xray Shortness of breath left opacity; TECHNIQUE:3 mm axial images are obtained from lung apices to the adrenal glands without intravenous contrast. Sagittal and coronal reformation is carried out. COMPARISON: Chest x-ray from 08/11/2019 Radiation Dose: DLP of 256 mGy-cm. FINDINGS:The examination is somewhat limited in quality secondary to respiratory motion. Mild centrilobular emphysematous changes are seen. Areas of atelectasis are seen involving the left lower lobe. No focal consolidation is identified. The central airway appears to be normal. Mild mucous plugging is seen involving the left lower lobe bronchi. No pleural effusion is seen. Mild pleural thickening is seen involving the lung bases. A calcified pleural plaque is seen in the right lower lobe. Heart size is normal. Scattered coronary artery calcifications are seen. No pericardial effusion is noted. Classic three-vessel arch anatomy is seen. Thoracic aorta is significantly tortuous. Pulmonary artery appears to be normal in size. No enlarged lymph nodes are seen in the mediastinum. A large hiatal hernia is seen with herniation of most of the stomach, small bowel and transverse colon. The adrenal glands are normal. A well-circumscribed low-density lesion is partially visualized in the left kidney consistent with a cyst. Gallbladder is removed. Changes of spondylosis are seen in the thoracic spine. IMPRESSION 1. 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 This has resulted in atelectasis of the left lower lung. Medications: Scheduled Medications ciprofloxacin HCl 500 mg BID doxycycline hyclate 100 mg Q12HA2 KCL 20 mEq DAILY lactobacillus acidophilus 1 tablet QID [START ON 08/13/2019] levothyroxine 100 mcg QAM-0600 magnesium oxide 400 mg BID metoprolol succinate XL 50 mg DAILY mirtazapine 15 mg QHS rivastigmine tartrate 3 mg QAM+PM vitamin B-12 1,000 mcg DAILY IV Medications/Drips PRN Medications traMADol 50 mg Q6HPRN Patient Active Problem List Diagnosis Essential hypertension Hyperlipemia Hypothyroidism Iron (Fe) deficiency anemia Vitamin D deficiency Right arm pain S/p reverse total shoulder arthroplasty Dizziness LOC (loss of consciousness) PAF (paroxysmal atrial fibrillation) Orthostatic hypotension Syncope Opacity of lung on imaging study Assessment: Jose G Iqbal is a 78 year old female on Xarelto for atrial fibrillation who fellyesterday and sustained a scalp laceration which was repaired in the ED. Additionally, she was also found to have a hematoma to her right anterior shoulder. She has no evidence of active hemorrhage. Xarelto has been held. Patient is undergoing syncopal work up. Plan: 1. May wash hair and scalp laceration daily, keep closed laceration covered with a dressing as the patient tolerates 2. No intervention for right shoulder hematoma 3. Patient may follow up in surgery clinic in 10 to 14 days for staple/suture removal Surgery will sign off, please reconsult as needed Autumn Navarro M.D. 08/12/2019 15:39 Carmelo Herring RN - 08/12/2019 3:24 PM CDTPt's family chose [facility]. Clinicals faxed over, awaiting PT eval. Carmelo Gifford RN, BSN [facility] Ecd O [phone] F [phone] Carmelo Herring RN - 08/12/2019 2:43 PM CDTRec'd a call from patient's son Sesar, who stated they still haven't made a decision for the patient's DC plan. Awaiting on family's decision. Carmelo Gifford RN, BSN [facility] Ecd O [phone] F [phone] INATAdriano Gregory LMSW - 08/12/2019 1:46 PM CDTCare Management Social Functional Assessment Patient Name: Jose G Iqbal Age: [age] year old Sex: female Patient's Previous Admission Date at [facility]: 12/19/2016 Current diagnosis and co-morbidities: SYNCOPE Readmission Questions: Was patient discharged from any acute care hospital within the last 30 days: No Social Functional Assessment: Primary language spoken/preferred: Icelandic Mental Status: Alert & Oriented to Person,Place & Time Information given by: Child Name and phone number of person giving information: Darwin anderson @ [phone] (Daughter) Patient's support system: Child Name and number of support system: Darwin anderson @ [phone] (Daughter) Primary Plant Accountant: Self MPOA: No Living Arrangement: Home [facility] [place] [address] Persons living in home: Self;Child Names & numbers of persons living in home: Darwin anderson @ [phone] (Daughter) Barriers to returning home: None Baseline functional status- ambulation: Independent Functional status-baseline personal care: Independent Baseline functional status- driving: Dependent Baseline functional status- grocery shopping: Requires minimal to moderate assistance Functional status-baseline housekeeping: Requires minimal to moderate assistance Functional status-baseline meal prep: Requires minimal to moderate assistance Current functional status same as prior: No Current functional status- ambulation: Dependent Current functional status- personal care: Dependent Current functional status- driving: Dependent Current functional status- grocery shopping: Dependent Current functional status-house keeping: Dependent Current functional status- meal preparation: Dependent Do you have a PCP?: Yes Name of PCP: Christiano [facility] Agency: No Provider Services: No DME Company: No Equipment: Cane;Walker Hemodialysis: No Community resources utilized: None Funding Resources: Medicare A & B Prescription coverage plan: [facility] Other Other pharmacy: [facility]. Anticipated services prior to disharge: Continue Medical Eval Expected mode of discharge transportation: Family Name and phone number of the friend or family member picking up the patient: Darwin anderson @ [phone] (Daughter) Additional Recommendations for DC: pending needs Recommended discharge plan: Home Have you or family you live with or family that is with you here in the hospital had: ? Recent history of travel to a high-risk area: no (example [place], [place]) ? Recent sick contacts before or during admission: no ? Contact with a proven COVID-19 case: no ? Symptoms: fever, dry cough, fatigue, difficulty breathing: no ? Attended recent events with a gatherings of > 10 people: no Do you have at least 30 days of all your medications available? yes Do you have My Chart set up? no Patient notified that they may be receiving a call regarding a follow-up visit after discharge. No Visitor policy was reviewed with patient/family. yes Due to the no visitor policy is there anyone you would like to list that needs to be updated regarding your care and plan for discharge. Yes.Darwin anderson @ [phone] (Daughter) Case management has notified patient via telephone of an IMM (Important Message from Medicare), which informs the patient of their right to talk to their doctor about their concerns about discharge, their right to appeal their discharge, and the process through which they can contact the Quality Improvement Organization ([employer]) Paige at [phone]: an outside reviewer hired by Medicare that reviews discharge appeals. Patient verbally agrees to information provided. No signature collected to reduce exposure during COVID-19 pandemic. SFA Complete: Social Functional Assessment complete: Yes Alcohol Use Screening (AUDIT-C) How often do you have a drink containing alcohol?: Never SCORE: 0 Did patient elect to have resources provided: No Role of Care Management explained.yes Adriano Jordan LMSW Team Physician, Care Management Carmelo Herring RN - 08/12/2019 12:57 PM CDTAttempted to complete SFA, but no answer. Will attempt at later time. Carmelo Gifford RN, BSN [facility] Ecd O [phone] F [phone] documented in this encounter Plan of Treatment Date Type Specialty Care Team Description 09/13/2019 Telemedicine Visit Family Medicine Morris Boucher MD [address] [place] [address] [phone] Name Type Priority Associated Diagnoses Order S chedule TROPONIN I LAB Routine EVERY 6 HOURS ( START TIME ADJUSTABLE) STA RT TIME ADJUSTABLE for 4 Occurrences sta rting 08/12/2019 unti l 08/12/2019, 2 c ompleted CBC WITH DIFF LAB Routine EVERY MORNING AT 0500 for 2 Days starting 08/12/2019 until 0, 1 completed BASIC METABOLIC PANEL LAB Routine EVERY MORNING AT 0500 for (NA, K, CL, CO2, 2 Days star ting 08/12/2019 GLUCOSE, BUN, until 08/13/19 20, 1 CREATININE, CA) completed PROFILE / HEMOGRAM LAB Routine ONCE for 1 Occurrences starting 2019 until 08/12/2019 Health Maintenance Due Date Last Done Comments DTaP,Tdap,and Td Vaccines (1 - Tdap) 1951 Zoster Recombinant Vaccine (SHINGRIX) (1 1992 of 2) Medicare Wellness Visit 12/03/2007 Osteoporosis Screening 12/03/2007 PNEUMOCOCCAL VACCINES 65+ (2 of 2 - PCV13) 03/17/202003/17 INFLUENZA VACCINE Completed 03/17/2019, 02/12/2017 documented as of this encounter Implants Implanted Type Area Technical Publications Manager Device Shelf Model / Identifier Expiration Serial / Lot Date Cement CEMENT Right: Biomet 01/31/2018 [id number] / Implanted: Qty: 1 on 12/19/2016 by Jude Rios MD at [facility] Shoulder 6 [id number] / [id number] Cement CEMENT Right: [employer]omet 04/02/2018 [id number] / Implanted: Qty: 1 on 12/19/2016 by Jude Rios MD at [facility] Shoulder 6 [id number] / [id number] Central Screw SCREW Right: [employer]omet 12/11/2026 [id number] / Implanted: Qty: 1 on 12/19/2016 by Jude Rios MD at [facility] Shoulder 7 [id number] / [id number] Locking Screw SCREW Right: [employer] 09/16/2026 [id number] 0 / Implanted: Qty: 1 on 12/19/2016 by Jude Rios MD at [facility] Shoulder 4 [id number] / [id number] Locking Screw SCREW Right: [employer] 11/04/2026 [id number] 0 / Implanted: Qty: 1 on 12/19/2016 by Jude Rios MD at [facility] Shoulder 2 [id number] / [id number] Nonlocking Screw SCREW Right: [employer] 10/15/2026 18 [id number] / Implanted: Qty: 1 on 12/19/2016 by Jude Rios MD at [facility] Shoulder 8 [id number] / [id number] Nonlocking Screw SCREW Right: [employer] 09/13/2026 18 0557 / Implanted: Qty: 1 on 12/19/2016 by Jude Rios MD at [facility] Shoulder 4 [id number] / [id number] Bone Cement Restrictor SHOULDER Right: Biomet 021 [id number] / Implanted: Qty: 1 on 12/19/2016 by Jude Rios MD at [facility] Shoulder 3 [id number] / [id number] Humeral Bearing SHOULDER Right: [employer] 11/17/2021 XL- [id number] / Implanted: Qty: 1 on 12/19/2016 by Jude Rios MD at [facility] Shoulder 2 [id number] / [id number] Humeral Tray With Locking Ring SHOULDER Right: [employer] 09/05/2026 [id number] / Implanted: Qty: 1 on 12/19/2016 by Jude Rios MD at [facility] Shoulder 2 [id number] / [id number] Mini Baseplate SHOULDER Right: [employer] 10/09/2026 0100 [id number] / Implanted: Qty: 1 on 12/19/2016 by Jude Rios MD at [facility] Shoulder 1 [id number] / [id number] Glenosphere SHOULDER Right: [employer]omet 11/26/2026 [id number] / Implanted: Qty: 1 on 12/19/2016 by Jude Rios MD at [facility] Shoulder 7 [id number] / [id number] Humeral Fracture Stem Stem Right: Biomet 08/30/19 27 [id number] / Implanted: Qty: 1 on 12/19/2016 by Jude Rios MD at [facility] Shoulder 4 [id number] / [id number] documented as of this encounter Procedures Procedure Name Priority Date/Time Associated Comments Diagnosis CAROTID DUPLEX Routine 08/12/2019 10:55 BILATERAL BY VASCULAR AM CDT LAB CT THORAX WO CONTRAST STEFAN 08/12/2019 8:33 Opacity of lung on Results for this AM CDT imaging study procedure are in the results section. CT HEAD WO CONTRAST Routine 08/12/2019 8:33 Injury of head, R esults for this AM CDT initial encounter procedure are in the results section. TROPONIN I Routine 08/12/2019 6:27 Results for this AM CDT procedure are i n the results section. CBC WITH DIFFERENTIAL Routine 08/12/2019 3:49 Re sults for this AM CDT procedure are i n the results section. N-TERMINAL PRO-BNP Routine 08/12/2019 3:49 Resul ts for this AM CDT procedure are i n the results section. CBC WITH DIFFERENTIAL Routine 08/12/2019 3:49 Re sults for this AM CDT procedure are i n the results section. BASIC METABOLIC PANEL Routine 08/12/2019 3:49 Re sults for this (NA, K, CL, CO2, AM CDT procedure a re in GLUCOSE, BUN, the results CREATININE, CA) section. TROPONIN I STEFAN Add-On 08/12/2019 3:49 Results for this AM CDT procedure are i n the results section. MAGNESIUM Routine 08/12/2019 3:49 Results for this AM CDT procedure are i n the results section. PROCALCITONIN STEFAN 08/12/2019 1:13 Results fo r this AM CDT procedure are i n the results section. TROPONIN I Routine 08/12/2019 1:13 Results for this AM CDT procedure are i n the results section. CORONAVIRUS COVID-19 STAT 08/11/2019 8:36 LOC (loss of Res ults for this TESTING PM CDT consciousness) procedure are in the results section. URINALYSIS STAT 08/11/2019 8:35 Fall, initial Results fo r this PM CDT encounter procedure are in Injury of head, the results initial encounte r section. Contusion of scalp, initial encounter LOC (loss of consciousness) CBC WITH DIFFERENTIAL STAT 08/11/2019 7:24 Fall, initial R esults for this PM CDT encounter procedure are in Injury of head, the results initial encounte r section. Contusion of scalp, initial encounter LOC (loss of consciousness) N-TERMINAL PRO-BNP Add-on 08/11/2019 7:24 Resul ts for this PM CDT procedure are i n the results section. CBC WITH DIFFERENTIAL STAT 08/11/2019 7:24 Fall, initial R esults for this PM CDT encounter procedure are in Injury of head, the results initial encounte r section. Contusion of scalp, initial encounter LOC (loss of consciousness) COMP. METABOLIC PANEL STAT 08/11/2019 7:24 Fall, initial R esults for this (68947) PM CDT encounter procedure are in Injury of head, the results initial encounte r section. Contusion of scalp, initial encounter LOC (loss of consciousness) THYROID STIMULATING Add-on 08/11/2019 7:24 Resu lts for this HORMONE PM CDT procedure are i n the results section. TROPONIN I STAT 08/11/2019 7:24 Fall, initial Results fo r this PM CDT encounter procedure are in Injury of head, the results initial encounte r section. Contusion of scalp, initial encounter LOC (loss of consciousness) MAGNESIUM STEFAN Add-On 08/11/2019 7:24 Results for this PM CDT procedure are i n the results section. CREATINE KINASE Add-on 08/11/2019 7:24 Results for this PM CDT procedure are i n the results section. PHOSPHORUS STEFAN Add-On 08/11/2019 7:24 Results for this PM CDT procedure are i n the results section. EKG-12 LEAD Routine 08/11/2019 7:23 PM CDT XR CHEST 1 VW STAT 08/11/2019 7:22 Fall, initial Results f or this PM CDT encounter procedure are in Injury of head, the results initial encounte r section. Contusion of scalp, initial encounter LOC (loss of consciousness) EKG-12 LEAD Routine 08/11/2019 7:11 PM CDT MA LAYR CLOS WND Routine 08/11/2019 3:59 Results for this TRUNK,ARM,LEG <2.5 CM PM CDT proced ure are in the results section. CT HEAD WO CONTRAST STAT 08/11/2019 2:42 Fall, initial Res ults for this PM CDT encounter procedure are i n the results section. CT CERVICAL SPINE WO STAT 08/11/2019 2:42 Fall, initial Re sults for this CONTRAST PM CDT encounter procedure are i n the results section. documented in this encounter Results CT THORAX WO CONTRAST (08/12/2019 8:33 AM CDT) Specimen Impressions Performed At 1. Type IV diaphragmatic hernia with herniation of sto mach small bowel PACS/VR/DOSE as well as part of the transverse colon thr ough the hernia defect. This has resulted in atelectasis of the left lowe r lung. Narrative Performed At EXAM: CT scan of the chest without contr ast PACS/VR/DOSE HISTORY: Dyspnea, chronic, neg or nondiagnostic xray Shortness of breath left opacity; TECHNIQUE:3 mm axial images are obtained from lung apices to the adrenal glands without intravenous contrast. Sag ittal and coronal reformation is carried out. COMPARISON: Chest x-ray from 08/11/2019 Radiation Dose: DLP of 256 mGy-cm. FINDINGS:The examination is somewhat sabillon ited in quality secondary to respiratory motion. Mild centrilobular e mphysematous changes are seen. Areas of atelectasis are seen involving the left lower lobe. No focal consolidation is identified. The central airway appears to be normal. Mild mucous plugging is seen involving the left lower lobe bronchi. No pleural effusion is seen. Mild pleural thickening i s seen involving the lung bases. A calcified pleural plaque i s seen in the right lower lobe. Heart size is normal. Scattered coronary artery calcif ications are seen. No pericardial effusion is noted. Classic three-vessel ar ch anatomy is seen. Thoracic aorta is significantly tortuous . Pulmonary artery appears to be normal in size. No enlarged lymph nodes are seen in the mediastinum. A large hiatal hernia is seen with herniation of most of the stomach, small bowel and transverse colon. The adrenal glands are normal. A well-circumscribed lo w-density lesion is partially visualized in the left kidney consistent wit h a cyst. Gallbladder is removed. Changes of spondylosis are seen in the t horacic spine. Procedure Note [facility], Radiant Results Inft User - 2019 9:55 AM CDT EXAM: CT scan of the chest without contrast HISTORY: Dyspnea, chronic, neg or nondi agnostic xray Shortness of breath left opacity; TECHNIQUE:3 mm axial images are obtained from lung apices to the adrenal glands without intravenous contrast. Sag ittal and coronal reformation is carried out. COMPARISON: Chest x-ray from 08/11/2019 Radiation Dose: DLP of 256 mGy-cm. FINDINGS:The examination is somewhat sabillon ited in quality secondary to respiratory motion. Mild centrilobular e mphysematous changes are seen. Areas of atelectasis are seen involving the left lower lobe. No focal consolidation is identified. The central airway appears to be normal. Mild mucous plugging is seen involving the left lower lobe bronchi. No pleural effusion is seen. Mild pleura l thickening is seen involving the lung bases. A calcified pleural plaque i s seen in the right lower lobe. Heart size is normal. Scattered coronary artery calcifications are seen. No pericardial effusion is noted. Classic t hree-vessel arch anatomy is seen. Thoracic aorta is significantly tortuous . Pulmonary artery appears to be normal in size. No enlarged lymph nodes are seen in the mediastinum. A large hiatal hernia is seen with herni ation of most of the stomach, small bowel and transverse colon. The adrenal glands are normal. A well-ci rcumscribed low-density lesion is partially visualized in the left kidney consistent with a cyst. Gallbladder is removed. Changes of spondylosis are seen in the t horacic spine. IMPRESSION 1. Type IV diaphragmatic hernia with her niation of stomach small bowel as well as part of the transverse colon thr ough the hernia defect. This has resulted in atelectasis of the left lowe r lung. Performing Organization Address City/State/Zipcode Phone Number PACS/VR/DOSE CT HEAD WO CONTRAST (08/12/2019 8:33 AM CDT) Specimen Impressions Performed At PACS/VR/DOSE Large scalp hematoma along the vertex on the right wit h interval decrease in size in comparison to the prior exam currently measuring 1.3 cm in thickness and 4.9 cm in length. A 0.4 cm hyperdense fo cus seen in along the skin at the site of the hematoma inferiorly and may re present foreign body, correlate with physical exam. Motion degradation inferiorly. No gross acute intracranial hemorrhage or mass effect. Preliminary Report Dictated by Resident: Jumana Mike MD., have reviewe d this study and agree with the above report. Narrative Performed At CT HEAD WO CONTRAST PACS/VR/DOSE HISTORY: 78-year-old female with PMH of dementia and atrial fibrillation and history of frequent falls, to be rashad luated after head trauma and possible convulsions. COMPARISON: CT head without contrast 08/10 TECHNIQUE: Noncontrast CT imaging of the head was pe rformed and coronal and sagittal reconstructions were obtain ed and reviewed. FINDINGS: Mild motion degradation inferiorly. Large scalp hematoma is noted along the vertex and to the right, has decreased in size from 2.1 x 4.2 x 5.6 cm (AP by TV by CC) to 1.3 x 4.4 x 4.9 cm (AP by TV by CC). 4 mm hyperdensi ty inferior aspect of the scalp hematoma in the dermis may reflect a foreign body, cor relate with physical exam. Unchanged mildly prominent lateral and third ventricle s likely secondary to volume loss. No midline shift or pat hological extra-axial fluid collection is present. The basal cistern s are unremarkable. There is no gross acute intracranial hemorrhage or sig nificant mass effect. Scattered periventricular and deep white matter hypoattenuating foci, nonspecific, can be seen with chronic small vessel dis ease. Bilateral basal ganglial calcifications are noted. The keen-white joy er differentiation is preserved. The mastoid air cells and paranasal air sinuses are no t well evaluated due to motion artifact. No definite calvaria l fracture. Procedure Note [facility], Radiant Results Inft User - 2019 9:[address] HEAD WO CONTRAST HISTORY: 78-year-old female with PMH of dementia and atrial fibrillation and history of frequent falls, to be rashad luated after head trauma and possible convulsions. COMPARISON: CT head without contrast 08/10 TECHNIQUE: Noncontrast CT imaging of th e head was performed and coronal and sagittal reconstructions were obtain ed and reviewed. FINDINGS: Mild motion degradation inferiorly. Large scalp hematoma is noted along the vertex and to the right, has decreased in size from 2.1 x 4.2 x 5.6 c m (AP by TV by CC) to 1.3 x 4.4 x 4.9 cm (AP by TV by CC). 4 mm hyperdensi ty inferior aspect of the scalp hematoma in the dermis may reflect a for eign body, correlate with physical exam. Unchanged mildly prominent lateral and t hird ventricles likely secondary to volume loss. No midline shift or patho logical extra-axial fluid collection is present. The basal cistern s are unremarkable. There is no gross acute intracranial hem orrhage or significant mass effect. Scattered periventricular and deep white matter hypoattenuating foci, nonspecific, can be seen with chronic sm all vessel disease. Bilateral basal ganglial calcifications are noted. The g ray-white matter differentiation is preserved. The mastoid air cells and paranasal air sinuses are not well evaluated due to motion artifact. No definite calvaria l fracture. IMPRESSION Large scalp hematoma along the vertex on the right with interval decrease in size in comparison to the prior exam currently measuring 1.3 cm in thickness and 4.9 cm in length. A 0.4 cm hyperdense focus seen in along the skin at the site of the hematoma inferio rly and may represent foreign body, correlate with physical exam. Motion degradation inferiorly. No gross acute intracranial hemorrhage or mass effect. Preliminary Report Dictated by Resident: Jumana Mike MD., have reviewed this study and agree with the above report. Performing Organization Address City/State/Zipcode Phone Number PACS/VR/DOSE TROPONIN I (08/12/2019 6:27 AM CDT) Pathologist Sig nature TROPONIN I <0.012 <=0.034 ng/mL [facility] Specimen Blood - LINE, VENOUS Narrative Performed At Equal or Less than 0.034 ng/ml---Normal [facility] Note: Cardiac troponin begins to rise [...] patient's use of biotin. Performing Organization Address City/[facility] Phone Number [facility] CLIA: [id number], [address] TROPONIN I (08/12/2019 3:49 AM CDT) Pathologist Sig nature TROPONIN I <0.012 <=0.034 ng/mL [facility] Specimen Blood - LINE, VENOUS Narrative Performed At Equal or Less than 0.034 ng/ml---Normal [facility] Note: Cardiac troponin begins to rise [...] patient's use of biotin. Performing Organization Address [facility]/Zipcode Phone Number [facility] CLIA: [id number], [address] CBC WITH DIFFERENTIAL (08/12/2019 3:49 AM CDT) Pathologist Sig [employer] WBC 5.41 4.30 - 11.10 [facility] 10*3/L [facility] RBC 3.10 (L) 3.93 - 5.25 [facility] 10*6/L [facility] HGB 9.1 (L) 11.6 - 15.0 [facility] g/dL [facility] HCT 27.9 (L) 35.7 - 45.2 % [facility] MCV 90.0 80.6 - 95.5 fL [facility] MCH 29.4 25.9 - 32.8 pg [facility] MCHC 32.6 31.6 - 35.1 [facility] g/dL [facility] RDW-SD 49.8 39.0 - 49.9 fL [facility] RDW-CV 14.9 12.0 - 15.5 % [facility] PLT 231 166 - 358 [facility] 10*3/L [facility] MPV 9.5 9.5 - 12.9 fL [facility] NRBC/100 WBC 0.0 0.0 - 10.0 /100 [facility] WBCs [facility] NRBC x10^3 <0.01 10*3/L [facility] GRAN MAT (NEUT) % 73.7 % [facility] IMM GRAN % 0.40 % [facility] LYMPH % 17.2 % [facility] MONO % 7.6 % [facility] EOS % 0.4 % [facility] BASO % 0.7 % [facility] GRAN MAT x10^3(ANC) 3.99 1.88 - 7.09 [facility] 10*3/uL [facility] IMM GRAN x10^3 <0.03 0.00 - 0.06 [facility] 10*3/uL [facility] LYMPH x10^3 0.93 (L) 1.32 - 3.29 [facility] 10*3/uL [facility] MONO x10^3 0.41 0.33 - 0.92 [facility] 10*3/uL [facility] EOS x10^3 <0.03 (L) 0.03 - 0.39 [facility] 10*3/uL [facility] BASO x10^3 0.04 0.01 - 0.07 [facility] 10*3/uL [facility] Specimen Blood - LINE, VENOUS Performing Organization Address City/State/Zipcode Phone Number [facility] CLIA: [id number], [address] [place], [place] [address] MAGNESIUM (08/12/2019 3:49 AM CDT) Pathologist Sig nature MAGNESIUM 1.8 1.7 - 2.4 mg/dL [facility] Specimen Blood - LINE, VENOUS Performing Organization Address [facility] Servicescotn Phone Number [facility] CLIA: [id number], [address], [place] [address] N-TERMINAL PRO-BNP (08/12/2019 3:49 AM CDT) Pathologist Sig nature NT-proBNP 774 (H) <=450 pg/mL [facility] Specimen Blood - LINE, VENOUS Narrative Performed At Biotin has been reported to cause a negative [facility] bias, interpret results relative to patient's use of biotin. Performing Organization Address [facility] [place] Phone Number [facility] CLIA: [id number], [address], [place] [address] BASIC METABOLIC PANEL (NA, K, CL, CO2, GLUCOSE, BUN, CREATININE, CA) (08/12/2019 3:49 AM CDT) Pathologist Sig nature NA 137 135 - 145 [facility] mmol/L [facility] K 3.5 3.5 - 5.0 [facility] mmol/L [facility] CL 107 98 - 108 mmol/L [facility] CO2 TOTAL 25 23 - 31 mmol/L [facility] AGAP 5 2 - 16 [facility] BUN 11 7 - 23 mg/dL [facility] GLUCOSE 94 70 - 110 mg/dL [facility] CREATININE 0.57 0.50 - 1.04 [facility] mg/dL [facility] CALCIUM 8.3 (L) 8.6 - 10.6 [facility] mg/dL [facility] eGFR Calculation 103.1 mL/min/1.73m2 [facility] ([facility] LAB[facility]ATORY Lebanese) eGFR Calculation 125.0 mL/min/1.73m2 [facility] () [facility] Specimen Blood - LINE, VENOUS Narrative Performed At [facility] of Glomerular Filtration Rate (GFR) [facility] and Staging of Kidney Disease* + [...] tests). Performing Organization Address City/State/Zipcode Phone Number [facility] CLIA: [id number], [address], [place] [address] PROCALCITONIN (08/12/2019 1:13 AM CDT) Pathologist Sig sidra Procalcitonin 0.02 <0.07 ng/mL [facility] Specimen Blood - LINE, VENOUS Narrative Performed At INTERPRETATION OF PROCALCITONIN RESULTS IN ADULTS >= 1 8 [facility] YEARS OF AGE Initiation and discontinuation of antibiotics on patie nts with suspected or confirmed Lower Respiratory Tract Infection in Adults >= 18 years of age. + + + +----- ------ + |Procalcitonin |Interpretation |Antibiotic |Considerations |ng/mL | |recommend ation | + + + +----- ------ + | <0.1 | Bacterial | Strongly | | | infection very | discouraged | Overruling: | | unlikely | | Clinically unstable + + + + H igh risk for adverse | <0.25 | Bacterial | Discouraged | outcome | | infection | | SEE IMPORTANT NOTE | | unlikely | | + + + +----- ------ + | >=0.25 | Bacterial | Encouraged | | | infection | | | | likely | | Consider treatment failure + + + + if l evels does not decrease | >0.5 | Bacterial | Strongly | appropriately | | infection very | encouraged | | | likely | | + + + +----- ------ + Discontinuation of antibiotics in high-acuity patients with suspected or confirmed sepsis in Adults >= 18 years of age. + + + +----- ------ + |Procalcitonin |Interpretation |Antibiotic |Considerations |ng/mL | |recommend ation | + + + +----- ------ + | <0.25 | Bacterial | Strongly | | | infection very | discouraged | Overruling: | | unlikely | | Clinically unstable + + + + H igh risk for adverse | <0.5 or drop | Bacterial | Discouraged | outcome | >80% from | infection | | SEE IMPORTANT NOTE | highest PCT | unlikely | | | level | | | + + + +----- ------ + | >=0.5 | Bacterial | Encouraged | | | infection | | | | likely | | Consider treatment failure + + + + if l evels does not decrease | >1.0 | Bacterial | Strongly | appropriately | | infection very | encouraged | | | likely | | + + + +----- ------ + Percentage of drop of Procalcitonin calculation for Discontinuation of antibiotics in high-acuity patients with suspected or confirmed sepsis in Adults >= 18 years of age. Procalcitonin highest{}-Procalcitonin current{} Delta Procalcitonin = x100% Procalcitonin current {} IMPORTANT NOTE: Procalcitonin may be elevated without bacterial infection by physiologic stress related to t rauma, brown, chronic dialysis, metastatic cancer, surgery in the past seven days, malaria, some fungal infections, and some forms of vasculitis. The interpretation algorithm may not apply to patients with immunosuppression (equivalent o f >10 mg of prednisone daily), HIV with CD4 cell count < 350 cells/mm3, active malignancy on systemic chemotherapy, solid organ transplant or hematopoietic stem cell transplant ation, or hospital acquired pneumonia. Additionally, some cli nical trials of procalcitonin have excluded patients with sh ock requiring vasopressor use, acute respiratory failure requiring mechanical ventilation, or those with known lung abscess/empyema. For further information please refer to: [email or web address] Performing Organization Address City/State/Zipcode Phone Number [facility] CLIA: [id number], [address] [facility] TROPONIN I (08/12/2019 1:13 AM CDT) Pathologist Sig nature TROPONIN I <0.012 <=0.034 ng/mL [facility] Specimen Blood - LINE, VENOUS Narrative Performed At Equal or Less than 0.034 ng/ml---Normal [facility] Note: Cardiac troponin begins to rise [...] patient's use of biotin. Performing Organization Address [facility] Phone Number [facility] CLIA: [id number], [address] [address] [address] [facility] CORONAVIRUS COVID-19 TESTING (08/11/2019 8:36 PM CDT) Pathologist Sig nature SARS-CoV-2 Not Detected Not Detected [facility] Specimen Swab - NASOPHARYNGEAL SWAB Narrative Performed At [facility] COVID-19 Assay is an isothermal nucleic [facility] acid amplification test intended for the qualitative detection of nucleic acid from SARS-CoV-2 viral RNA in nasopharyngeal ([employer]) specimens. It is used under Emergency Use Authorization (EUA) by FDA. The limit of detection (LOD) of the assay is 125 Genome Equivalents/mL. A positive result is indicative of the presence of SARS-CoV-2 RNA. Clinical correlation with patient history and other diagnostic information is necessary to determine patient infection status. A negative (Not Detected) result does not preclude SARS-CoV-2 infection. Clinical correlation with patient history and other diagnostic information should be used in patient management decisions. Invalid: Please collect a new specimen for repeat patient testing if clinically indicated. Performing Organization Address [facility]/Zipcode Phone Number [facility] CLIA: [id number], [address] [address] [address] [facility] URINALYSIS (08/11/2019 8:35 PM CDT) Pathologist Sig nature APPEARANCE Clear Clear [facility] COLOR Yellow Yellow [facility] PH 6.0 4.8 - 8.0 [facility] SP GRAVITY 1.013 1.003 - 1.030 [facility] GLU U QUAL Normal Normal [facility] BLOOD 1+ (A) Negative [facility] KETONES 5 mg/dL (A) Negative [facility] PROTEIN Negative Negative [facility] UROBILIN Normal Normal [facility] BILIRUBIN Negative Negative [facility] NITRITE Negative Negative [facility] [employer] Negative Negative [facility] RBC/HPF 8 (H) 0 - 3 HPF [facility] WBC/HPF 2 0 - 5 HPF [facility] BACTERIA Few (A) Negative [facility] MUCOUS Slight (A) Negative LPF [facility] SQ EPITH <1 HPF [facility] Specimen Urine - URINE, CLEAN CATCH Performing Organization Address [facility] [place] Phone Number [facility] CLIA: [id number], [address] CREATINE KINASE (08/11/2019 7:24 PM CDT) Pathologist Sig nature CK 63 33 - 194 U/L [facility] Specimen Blood - VENOUS Performing Organization Address [facility] [place] Phone Number [facility] CLIA: [id number], [address] [place] [address] N-TERMINAL PRO-BNP (08/11/2019 7:24 PM CDT) Pathologist Sig nature NT-proBNP 880 (H) <=450 pg/mL [facility] Specimen Blood - VENOUS Narrative Performed At Biotin has been reported to cause a negative [facility] bias, interpret results relative to patient's use of biotin. Performing Organization Address [facility] [place] Phone Number [facility] CLIA: [id number], [address] THYROID STIMULATING HORMONE (08/11/2019 7:24 PM CDT) Pathologist Sig nature TSH 13.80 (H) 0.45 - 4.70 mIU/L [facility] Specimen Blood - VENOUS Performing Organization Address [facility] Phone Number [facility] CLIA: [id number], [address] [place] [address] PHOSPHORUS (08/11/2019 7:24 PM CDT) Pathologist Sig nature PHOSPHORUS 3.6 2.5 - 5.0 mg/dL [facility] Specimen Blood - VENOUS Performing Organization Address City/[facility] Phone Number [facility] CLIA: [id number], [address], [place] [address] MAGNESIUM (08/11/2019 7:24 PM CDT) Pathologist Sig [facility] MAGNESIUM 1.8 1.7 - 2.4 mg/dL [facility] Specimen Blood - VENOUS Performing Organization Address City/State/Zipcode Phone Number [facility] CLIA: [id number], [address], [place] [address] CBC WITH DIFFERENTIAL (08/11/2019 7:24 PM CDT) Pathologist Sig nature WBC 7.90 4.30 - 11.10 [facility] 10*3/L [facility] RBC 3.61 (L) 3.93 - 5.25 [facility] 10*6/L [facility] HGB 10.5 (L) 11.6 - 15.0 [facility] g/dL [facility] HCT 32.4 (L) 35.7 - 45.2 % [facility] MCV 89.8 80.6 - 95.5 fL [facility] MCH 29.1 25.9 - 32.8 pg [facility] MCHC 32.4 31.6 - 35.1 [facility] g/dL [facility] RDW-SD 50.0 (H) 39.0 - 49.9 fL [facility] RDW-CV 15.1 12.0 - 15.5 % [facility] PLT 267 166 - 358 [facility] 10*3/L [facility] MPV 9.2 (L) 9.5 - 12.9 fL [facility] NRBC/100 WBC 0.0 0.0 - 10.0 /100 [facility] WBCs [facility] NRBC x10^3 <0.01 10*3/L [facility] GRAN MAT (NEUT) % 75.7 % [facility] IMM GRAN % 0.50 % [facility] LYMPH % 17.1 % [facility] MONO % 5.7 % [facility] EOS % 0.4 % [facility] BASO % 0.6 % [facility] GRAN MAT x10^3(ANC) 5.98 1.88 - 7.09 [facility] 10*3/uL [facility]ITAL [facility] IMM GRAN x10^3 0.04 0.00 - 0.06 [facility] 10*3/uL [facility]ITAL [facility] LYMPH x10^3 1.35 1.32 - 3.29 [facility] 10*3/uL [facility]ITAL [facility] MONO x10^3 0.45 0.33 - 0.92 [facility] 10*3/uL [facility]ITAL [facility] EOS x10^3 0.03 0.03 - 0.39 [facility] 10*3/uL [facility]ITAL [facility] BASO x10^3 0.05 0.01 - 0.07 [facility] 10*3/uL [facility] Specimen Blood - VENOUS Performing Organization Address [facility] Phone Number [facility] CLIA: [id number], [address] TROPONIN I (08/11/2019 7:24 PM CDT) Pathologist Sig [employer] TROPONIN I <0.012 <=0.034 ng/mL [facility] Specimen Blood - VENOUS Narrative Performed At Equal or Less than 0.034 ng/ml---Normal [facility] Note: Cardiac troponin begins to rise [...] patient's use of biotin. Performing Organization Address [facility] Phone Number [facility] CLIA: [id number], [address] COMP. METABOLIC PANEL ([id number]) (08/11/2019 7:24 PM CDT) Pathologist [employer] NA 140 135 - 145 [facility] mmol/L [facility] K 3.4 (L) 3.5 - 5.0 [facility] mmol/L [facility] CL 106 98 - 108 mmol/L [facility] CO2 TOTAL 24 23 - 31 mmol/L [facility] AGAP 10 2 - 16 [facility] BUN 10 7 - 23 mg/dL [facility] GLUCOSE 106 70 - 110 mg/dL [facility] CREATININE 0.65 0.50 - 1.04 [facility] mg/dL [facility] TOTAL BILI 0.7 0.1 - 1.1 mg/dL [facility] CALCIUM 8.8 8.6 - 10.6 [facility] mg/dL [facility] T PROTEIN 7.0 6.3 - 8.2 g/dL [facility] ALBUMIN 3.5 3.5 - 5.0 g/dL [facility] ALK PHOS 137 (H) 34 - 122 U/L [facility] ALTv 13 5 - 35 U/L [facility] AST(SGOT) 25 13 - 40 U/L [facility] eGFR Calculation 88.6 mL/min/1.73m2 [facility] [place] eGFR Calculation 107.4 mL/min/1.73m2 [facility] () [facility] Specimen Blood - VENOUS Narrative Performed At Association of Glomerular Filtration Rate (GFR) [facility] and Staging of Kidney Disease* + [...] tests). Performing Organization Address City/State/Zipcode Phone Number [facility] CLIA: [id number], [address], [place] [address] XR CHEST 1 VW (08/11/2019 7:22 PM CDT) Specimen Impressions Performed At PACS/VR/DOSE 1. Left lower lobe opacities again seen likely repre sent combination of atelectasis or scarring. 2. A left-sided moderate-sized hiatal hernia is agai n seen. Narrative Performed At EXAM: XR CHEST 1 VW PACS/VR/DOSE HISTORY: fall, LOC COMPARISON: 07/24/2019 FINDINGS: Lines/Tubes: None. Lungs: Again seen the left lower lobe hazy opacity wit h an air-fluid level consistent with hiatal hernia and adjace nt atelectasis or scarring. No pleural effusion or pneumothorax is iden tified. Heart/Mediastinum: The cardiomediastinal silhouette is normal for technique. Bones: No acute osseous abnormality is s een. Right shoulder reverse arthroplasty was partial visualized. Procedure Note [facility], Radiant Results Inft User - 2019 7:36 PM CDT EXAM: XR CHEST 1 VW HISTORY: fall, LOC COMPARISON: 07/24/2019 FINDINGS: Lines/Tubes: None. Lungs: Again seen the left lower lobe cruz zy opacity with an air-fluid level consistent with hiatal hernia and adjace nt atelectasis or scarring. No pleural effusion or pneumothorax is iden tified. Heart/Mediastinum: The cardiomediastinal silhouette is normal for technique. Bones: No acute osseous abnormality is s een. Right shoulder reverse arthroplasty was partial visualized. IMPRESSION 1. Left lower lobe opacities again seen likely represent combination of atelectasis or scarring. 2. A left-sided moderate-sized hiatal h ernia is again seen. Performing Organization Address City/State/Zipcode Phone Number PACS/VR/DOSE Laceration Repair (08/11/2019 3:59 PM CDT) Narrative Performed At Neda Kearney PAC 08/11/2019 3:5 9 PM Laceration Repair Performed by: Neda Kearney PAC Authorized by: Kearney, Neda S, PAC Consent: Consent obtained: unable to obtain ve rbal consent for procedure from patient due to dementia but consent give n by family to treat patient. Risks discussed: Infection, poor wound healing an d need for additional repair (with patient's daughter) [place] protocol: Patient identity confirmed: Arm ban d Anesthesia (see MAR for exact dosages): Anesthesia method: Local infiltrati on Local anesthetic: Lidocaine 1% w/o epi Laceration details: Location: Scalp Scalp location: Occipital Repair type: Repair type: Intermediate Exploration: Hemostasis achieved with: Direct pr essure Wound exploration: entire depth of wo und probed and visualized Wound extent: no foreign bodies/mater ial noted Treatment: Area cleansed with: Betadine Amount of cleaning: Standard Skin repair: Repair method: Myrna Number of myrna: 2 Approximation: Approximation: Close Post-procedure details: Dressing: Bulky dressing (pressure dressing) Patient tolerance of procedure: Emmanuel erated well, no immediate complications Comments: Small laceration with large hematoma underlying; c reated limited defect by expanding laceration to drain bleedin g and myrna placed in wound followed by surgicel and pressure dressing. CT CERVICAL SPINE WO CONTRAST (08/11/2019 2:42 PM CDT) Specimen Narrative Performed At HISTORY: Trauma. S/P fall. PACS/VR/DOSE TECHNIQUE: 64-multidetector Spiral CT of the cervical spine is obtained and subsequently sagittal, coronal reformati ons are obtained. FINDINGS: Comparison is made with 020 study. No acute compression fracture in cervica l spine detected. However, compression fracture is seen involving upper plate of T3 vertebral body, of uncertain age. Unfortunately the T3 was not included in the previous CT scan of 07/24/2019. A linear radiolucent line also noted in the left lamina of T3 with well corticated edges. This is not confirmed to be a definite fracture on the reformatted sagittal and coronal images and could be caused by focal degenerative change in the superior articular facet of T4 vertebral body. Lower cervical and upper thoracic levosc oliosis noted. Degenerative disc disease noted at C5-C6, C6-C7. 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 Left face t joint at C2-C3 is partially fused. Soft tissues in prevertebral region appear normal. Spi nal cord or ligament or vascular injury can not be evaluated by this study. CONCLUSIONS: Compression fracture in upp er T3 with loss of approximately 20% of the height. Exact age of the fracture is uncert ain. Unfortunately T3 vertebral body was not included in previous CT scan of 07/24/2019. However, fracture appears stable with no encroach ment into the spinal canal. Procedure Note [facility], Radiant Results Inft User - 2019 2:54 PM CDT HISTORY: Trauma. S/P fall. TECHNIQUE: 64-multidetector Spiral CT of the cervical spine is obtained and subsequently sagittal, coronal reformati ons are obtained. FINDINGS: Comparison is made with 020 study. No acute compression fracture in cervica l spine detected. However, compression fracture is seen involving u pper plate of T3 vertebral body, of uncertain age. Unfortunately the T3 was not included in the previous CT scan of 07/24/2019. A linear radiolucent line also noted in the left lamina of T3 with well corticated edges. This is not confirmed to be a definite fracture on the reformatted sagittal and coronal images and could be caused by focal degenerative change in the superior preston cular facet of T4 vertebral body. Lower cervical and upper thoracic levosc oliosis noted. Degenerative disc disease noted at C5-C6, C6-C7. Facet art hritis noted, bilateral at C3-C4, C4-C5, C7-T1 and T1-T2 levels. Left face t joint at C2-C3 is partially fused. Soft tissues in prevertebral region appe ar normal. Spinal cord or ligament or vascular injury can not be evaluated by this study. CONCLUSIONS: Compression fracture in upp er T3 with loss of approximately 20% of the height. Exact age of the frac ture is uncertain. Unfortunately T3 vertebral body was not included in previ ous CT scan of 07/24/2019. However, fracture appears stable with no encroach ment into the spinal canal. Performing Organization Address City/State/Zipcode Phone Number PACS/VR/DOSE CT HEAD WO CONTRAST (08/11/2019 2:42 PM CDT) Specimen Impressions Performed At PACS/VR/DOSE A large, mixed density posterior scalp h ematoma with evidence of ongoing bleeding is noted. There is no underlying calvarial fractur e or acute intracranial abnormality. Narrative Performed At CT HEAD WO CONTRAST PACS/VR/DOSE HISTORY: Female 78 years fall-head injur y COMPARISON: CT head dated 07/24/2019 TECHNIQUE: Routine CT head without contr ast FINDINGS: A large, mixed density scalp hematoma is noted posteriorly. The ventricles are unchanged in caliber and configurat ion. The ventricles are unchanged in caliber and configurati on with mild dilatation of the lateral and third ventricles again noted. No midline s hift or pathological extra-axial fluid collection is present. The basal cisterns are unremarkable. No acute intracranial hemorrhage or mass effect is pre sent. The keen-white matter differentiation is preserved. Mild background i schemic small vessel disease is again noted. The calvarium and skull base are unremar kable. The mastoid air cells and visualized paranasal air sinuses are lee ar. Procedure Note [facility], Radiant Results Inft User - 2019 2:[address] HEAD WO CONTRAST HISTORY: Female 78 years fall-head injur y COMPARISON: CT head dated 07/24/2019 TECHNIQUE: Routine CT head without contr ast FINDINGS: A large, mixed density scalp hematoma is noted posteriorly. The ventricles are unchanged in caliber and configuration. The ventricles are unchanged in caliber and configurati on with mild dilatation of the lateral and third ventricles again noted . No midline shift or pathological extra-axial fluid collection is present. The basal cisterns are unremarkable. No acute intracranial hemorrhage or mass effect is present. The keen-white matter differentiation is preserved. Mil d background ischemic small vessel disease is again noted. The calvarium and skull base are unremar kable. The mastoid air cells and visualized paranasal air sinuses are lee ar. IMPRESSION A large, mixed density posterior scalp h ematoma with evidence of ongoing bleeding is noted. There is no underlying calvarial fractur e or acute intracranial abnormality. Performing Organization Address City/State/Zipcode Phone Number PACS/VR/DOSE documented in this encounter Visit Diagnoses Diagnosis Injury of head, initial encounter - Prim zehra Fall, initial encounter Contusion of scalp, initial encounter LOC (loss of consciousness) Other alteration of consciousness Syncope and collapse Opacity of lung on imaging study Syncope, unspecified syncope type Right arm pain Pain in limb Dementia with behavioral disturbance, un specified dementia type Hypothyroidism, unspecified type Dizziness Dizziness and giddiness Essential hypertension Unspecified essential hypertension Hyperlipemia Other and unspecified hyperlipidemia Orthostatic hypotension PAF (paroxysmal atrial fibrillation) Atrial fibrillation documented in this encounter Administered Medications Medication Order MAR Action Action Date Dose Rate Site ciprofloxacin HCl (CIPRO) tablet Given 08/12/2019 8:01 AM CDT 5 00 mg 500 mg 500 mg, Oral, BID, First dose on Thu08/12/19 at 0115, Until Discontinued, STEFAN, Reason for Anti-Infective: Documented Infection, Documented Infection Site: Skin / Soft Tissue, Duration of Therapy: 7 days Given 08/12/2019 1:21 AM CDT 500 mg doxycycline hyclate (Vibramycin) capsule 100 Given 02/2020 6:24 AM CDT 100 mg mg 100 mg, Oral, Q12HA2, First dose on Thu08/12/19 at 0115, Until Discontinued, Reason for Anti-Infective: Documented Infection, Documented Infection Site: Skin / Soft Tissue, Duration of Therapy: 7 days Given 08/12/2019 1:22 AM CDT 100 mg KCL (KLOR-CON M20) tablet 20 mEq Given 08/12/2019 8:01 AM CDT 20 mEq 20 mEq, Oral, DAILY, First dose on Thu08/12/19 at 0115, Until Discontinued, Routine Given 08/12/2019 1:22 AM CDT 20 mEq lactobacillus acidophilus (ACIDOPHILLUS) Given 08/12/2019 11 :50 AM CDT 1 tablet 25 million cell -100 mg captab 1 tablet 1 tablet, Oral, QID, First dose on Thu08/12/19 at 0115, Until Discontinued, Routine Given 08/12/2019 8:01 AM CDT 1 tablet Given 08/12/2019 1:22 AM CDT 1 tablet levothyroxine (SYNTHROID) tablet 100 mcg 100 mcg, Oral, QAM-0600, First dose on Thu08/13/19 at 0600, Until Discontinued, Routine magnesium oxide (MAG-OX 400) tablet 400 mg Given 08/12/2019 8:01 AM CDT 400 mg 400 mg, Oral, BID, First dose on Thu08/12/19 at 0115, Until Discontinued, Routine Given 08/12/2019 1:22 AM CDT 400 mg metoprolol succinate XL (TOPROL XL) tablet 50 Given 8:06 AM CDT 50 mg mg 50 mg, Oral, DAILY, First dose on Thu08/12/19 at 0900, Until Discontinued, Routine rivastigmine tartrate (EXELON) capsule 3 mg Given 08/12/2019 8:31 AM CDT 3 mg 3 mg, Oral, QAM+PM, First dose on Thu08/12/19 at 0115, Until Discontinued, media law faculty member approving Restricted medication: MEGADC vitamin B-12 (CYANOCOBALAMIN) tablet Given 08/12/2019 8:31 AM C DT 1,000 mcg 1,000 mcg 1,000 mcg, Oral, DAILY, First dose on Thu08/12/19 at 0900, Until Discontinued, Routine Medication Order MAR Action Action Date Dose Rate Site haloperidol lactate Given 08/12/2019 4:03 PM 5 mg Right Deltoid-IM (HALDOL) injection 5 mg CDT 5 mg, Intramuscular, ONCE, 1 dose, Thu08/12/19 at 1700, Routine levothyroxine (SYNTHROID) tablet 88 mcg Given 08/12/2019 6:24 AM CDT 88 mcg 88 mcg, Oral, QAM-0600, First dose on Thu08/12/19 at 0600, Until Discontinued, Routine LORazepam (ATIVAN) injection 0.5 mg Given 08/12/2019 3:37 PM CDT 0.5 mg 0.5 mg, Slow IV Push, ONCE, 1 dose, Thu08/12/19 at 1645, Routine documented in this encounter Insurance Payer Benefit Plan / Subscriber ID Effective Dates Phone Addre ss Type Group MEDICARE MEDICARE PART xxxxxxxxxxx 2007-Arnie [phone] [facility] Medicare A & B t 2 [id number] ANALILIA BEDOLLA [id number] documented as of this encounter
--- OUTSIDE RECORDS SUMMARY | 2019-09-15 09:18 | XMS REPORT | Summary of Care ---
:1940 Author Organization [facility] - Health Address [address] [place] [address] Care Team Providers Name Role Phone MD Christiano Primary Care Provider Reason for Visit Reason Comments Appointment 1 week surgery hfu Encounter Details Date Type Department Care Team Description 08/15/2019 Telephone [facility] Surgical Tammy Navarro Ap pointment (1 week Specialties- Peter spring MD surgery hfu ) [address] [facility] [address] [facility] 2.100 [address] [place], [place] [phone] [address] [phone] Allergies Active Allergy Reactions Severity Noted Date Comments Chocolate Flavor Anxiety 04/20/2015 Nitrofurantoin Unknown - See 04/20/2015 Monohyd/M-Cryst comments Morphine Nausea and/or 12/19/2016 Vomiting Penicillin Other - See comments 12/19/2016 Pt stat es "several family members are allergic so i t hink i am" documented as of this encounter (statuses as of 08/19/2019) Medications Medication Sig Dispensed Refills Start Date End Date Status lovastatin 20 mg tablet Take 20 mg by 0 11/02/2016 Active mouth daily. traMADOL (ULTRAM) 50 mg Take 1 tablet 20 tablet 0 12/27/2017 Active tablet by mouth every 6 (six) hours as needed for Pain (scale 4-6). mupirocin 2 % Apply to 22 g 0 12/30/2017 Activ e ointmentIndications: area(s) 3 Abscess (three) times daily. Ferrous Fumarate-Folic Take 1 tablet 90 tablet 1 03/16/2019 Active Acid (HEMATINIC/FOLIC by mouth daily. ACID) 324 mg (106 mg iron)-1 mg TabIndications: Iron deficiency anemia, unspecified iron deficiency anemia type vitamin B-12 1,000 mcg Take 1 tablet 30 tablet 0 06/26/2019 Active tabletIndications: by mouth daily. Dizziness, PAF (paroxysmal atrial fibrillation) metoprolol succinate XL Take 1 tablet 30 tablet 0 07/26/2019 Active 50 mg 24 hr by mouth daily. tabletIndications: Dizziness, PAF (paroxysmal atrial fibrillation) doxycycline monohydrate Take 100 mg by 0 Active 100 mg capsule mouth 2 (two) times daily. ciprofloxacin HCl 500 Take 500 mg by 0 Active mg tablet mouth 2 (two) times daily. hydrocortisone Insert 1 Dose 0 A ctive (PROCTOSOL HC RECTAL) into rectum 2 (two) times daily. rivastigmine 4.6 mg/24 Apply 1 Patch 0 06/09/2019 Active hr patch to skin daily. ciclopirox (PENLAC) 8 % Apply 1 Dose to 0 Active solution area(s) at bedtime. Apply to Nails. Cholecalciferol, Take 1 capsule 0 Active Vitamin D3, (VITAMIN by mouth daily. D3) 25 mcg (1,000 unit) capsule lactobacillus Take 1 tablet 28 tablet 0 08/12/2019 08/19/2019 Active acidophilus 25 million by mouth 4 cell -100 mg (four) times captabIndications: daily for 7 Right arm pain days. levothyroxine 100 mcg Take 1 tablet 30 tablet 0 08/13/201903/2020 Active tabletIndications: by mouth every Hypothyroidism, morning for 30 unspecified type days. mirtazapine 15 mg Take 1 tablet 30 tablet 0 08/12/2019 020 Active tabletIndications: by mouth at Dementia with bedtime for 30 behavioral disturbance, days. unspecified dementia type documented as of this encounter (statuses as of 08/19/2019) Active Problems Problem Noted Date Opacity of lung on imaging study 08/12/2019 Syncope 08/11/2019 LOC (loss of consciousness) 06/25/2019 PAF (paroxysmal atrial fibrillation) 06/25/2019 Orthostatic hypotension 06/25/2019 Dizziness 06/24/2019 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 Right arm pain 2016 Essential hypertension 07/12/2015 Hyperlipemia 07/12/2015 Hypothyroidism 07/12/2015 Iron (Fe) deficiency anemia 07/12/2015 Vitamin D deficiency 07/12/2015 documented as of this encounter (statuses as of 08/19/2019) Immunizations Name Administration Dates Next Due Influenza [...] filedocumented in this encounter Plan of Treatment Date Type Specialty Care Team Description 09/13/2019 Telemedicine Visit Family Medicine Morris Alvarado MD [address] [place] [address] [phone] Health Maintenance Due Date Last Done Comments DTaP,Tdap,and Td Vaccines (1 - Tdap) 1951 Zoster Recombinant Vaccine (SHINGRIX) (1 1992 of 2) Medicare Wellness Visit 12/03/2007 Osteoporosis Screening 12/03/2007 PNEUMOCOCCAL VACCINES 65+ (2 of 2 - PCV13) 03/17/202003/17 INFLUENZA VACCINE Completed 03/17/2019, 02/12/2017 documented as of this encounter Implants Implanted Type Area Machine Molder Device Shelf Model / Identifier Expiration Serial / Lot Date Cement CEMENT Right: Biomet 01/31/2018 [id number] / Implanted: Qty: 1 on 12/19/2016 by Jude Rios MD at [facility] Shoulder 6 195-1-001 / [id number] Cement CEMENT Right: Biomet 04/02/2018 6195-1-00 1 / Implanted: Qty: 1 on 12/19/2016 by Jude Rios MD at [facility] Shoulder 6 [id number] / [id number] Central Screw SCREW Right: Biomet 12/11/2026 [id number] / Implanted: Qty: 1 on 12/19/2016 by Jude Rios MD at [facility] Shoulder 7 [id number] / [id number] Locking Screw SCREW Right: [employer]omet 09/16/2026 [id number] 0 / Implanted: Qty: 1 on 12/19/2016 by Jude Rios MD at [facility] Shoulder 4 [id number] / [id number] Locking Screw SCREW Right: [employer]omet 11/04/2026 [id number] 0 / Implanted: Qty: 1 on 12/19/2016 by Jude Rios MD at [facility] Shoulder 2 [id number] / [id number] Nonlocking Screw SCREW Right: [employer]omet 10/15/2026 18 0557 / Implanted: Qty: 1 on 12/19/2016 by Jude Rios MD at [facility] Shoulder 8 [id number] / [id number] Nonlocking Screw SCREW Right: [employer]omet 09/13/2026 18 0557 / Implanted: Qty: 1 on 12/19/2016 by Jude Rios MD at [facility] Shoulder 4 [id number] / [id number] Bone Cement Restrictor SHOULDER Right: Biomet 021 [id number] / Implanted: Qty: 1 on 12/19/2016 by Jude Rios MD at [facility] Shoulder 3 [id number] / [id number] Humeral Bearing SHOULDER Right: Biomet 11/17/2021 XL- [id number] / Implanted: Qty: 1 on 12/19/2016 by Jude Rios MD at [facility] Shoulder 2 [id number] / [id number] Humeral Tray With Locking Ring SHOULDER Right: [employer]omet 09/05/2026 [id number] / Implanted: Qty: 1 on 12/19/2016 by Jude Rios MD at [facility] Shoulder 2 [id number] / [id number] Mini Baseplate SHOULDER Right: [employer]omet 10/09/2026 0100 [id number] / Implanted: Qty: 1 on 12/19/2016 by uJde Rios MD at [facility] Shoulder 1 [id number] / [id number] Glenosphere SHOULDER Right: Biomet 11/26/2026 [id number] / Implanted: Qty: 1 on 12/19/2016 by Jude Rios MD at [facility] Shoulder 7 [id number] / [id number] Humeral Fracture Stem Stem Right: Biomet 08/30/19 27 [id number] / Implanted: Qty: 1 on 12/19/2016 by Jude Rios MD at [facility] Shoulder 4 [id number] / [id number] documented as of this encounter Results Not on filedocumented in this encounter Insurance Payer Benefit Plan / Subscriber ID Effective Dates Phone Addre ss Type Group MEDICARE MEDICARE PART xxxxxxxxxxx 2007-Arnie [phone] [facility] Medicare A & B t 2 [id number] ANALILIA BEDOLLA [id number] documented as of this encounter
--- OUTSIDE RECORDS SUMMARY | 2019-09-15 09:18 | XMS REPORT | Summary of Care ---
:1940 Author Organization [facility] - Health Address [address] [place] [id number] Care Team Providers Name Role Phone MD Christiano Primary Care Provider Reason for Visit Reason Comments Assessment Encounter Details Date Type Department Care Team Description 08/12/2019 Telephone [facility] Family Medicine Dileep Darling MD Assessment - [address] [phone] [place] [address] Allergies Active Allergy Reactions Severity Noted Date Comments Chocolate Flavor Anxiety 04/20/2015 Nitrofurantoin Unknown - See 04/20/2015 Monohyd/M-Cryst comments Morphine Nausea and/or 12/19/2016 Vomiting Penicillin Other - See comments 12/19/2016 Pt stat es "several family members are allergic so i t hink i am" documented as of this encounter (statuses as of 08/15/2019) Medications Medication Sig Dispensed Refills Start Date [...] times daily. Ferrous Fumarate-Folic Take 1 tablet by 90 tablet 1 03/16/2019 Active Acid (HEMATINIC/FOLIC mouth daily. ACID) 324 mg (106 mg iron)-1 mg TabIndications: Iron deficiency anemia, unspecified iron deficiency anemia type vitamin B-12 1,000 mcg Take 1 tablet by 30 tablet 0 06/26/2019 Active tabletIndications: mouth daily. Dizziness, PAF (paroxysmal atrial fibrillation) metoprolol succinate XL Take 1 tablet by 30 tablet 0 0 Active 50 mg 24 hr mouth daily. tabletIndications: Dizziness, PAF (paroxysmal atrial fibrillation) doxycycline monohydrate Take 100 mg by 0 Active 100 mg capsule mouth 2 (two) times daily. ciprofloxacin HCl 500 mg Take 500 mg by 0 Active tablet mouth 2 (two) times daily. hydrocortisone Insert 1 Dose 0 A ctive (PROCTOSOL HC RECTAL) into rectum 2 (two) times daily. rivastigmine 4.6 mg/24 Apply 1 Patch to 0 06/09/2019 Active hr patch skin daily. ciclopirox (PENLAC) 8 % Apply 1 Dose to 0 Active solution area(s) at bedtime. Apply to Nails. Cholecalciferol, Vitamin Take 1 capsule 0 Active D3, (VITAMIN D3) 25 mcg by mouth daily. (1,000 unit) capsule documented as of this encounter (statuses as of 08/15/2019) Active Problems Problem Noted Date Opacity of lung on imaging study 08/12/2019 Syncope 08/11/2019 LOC (loss of consciousness) 06/25/2019 PAF (paroxysmal atrial fibrillation) 06/25/2019 Orthostatic hypotension 06/25/2019 Dizziness 06/24/2019 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 Right arm pain 2016 Essential hypertension 07/12/2015 Hyperlipemia 07/12/2015 Hypothyroidism 07/12/2015 Iron (Fe) deficiency anemia 07/12/2015 Vitamin D deficiency 07/12/2015 documented as of this encounter (statuses as of 08/15/2019) Immunizations Name Administration Dates Next Due Influenza [...] Telemedicine Visit Family Medicine Morris Alvarado MD [address] [place] [address] [phone] Health Maintenance Due Date Last Done Comments DTaP,Tdap,and Td Vaccines (1 - Tdap) 1951 Zoster Recombinant Vaccine (SHINGRIX) (1 1992 of 2) Medicare Wellness Visit 12/03/2007 Osteoporosis Screening 12/03/2007 PNEUMOCOCCAL VACCINES 65+ (2 of 2 - PCV13) 03/17/202003/17 INFLUENZA VACCINE Completed 03/17/2019, 02/12/2017 documented as of this encounter Implants Implanted Type 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 Manager Device Shelf Model / Identifier Expiration Serial / Lot Date Cement CEMENT Right: [employer]omet 01/31/2018 [id number] / Implanted: Qty: 1 on 12/19/2016 by Jude Rios MD at [facility] Shoulder 6 195-1-001 / [id number] Cement CEMENT Right: [employer]omet 04/02/2018 6195-1-00 1 / Implanted: Qty: 1 on 12/19/2016 by Jude Rios MD at [facility] Shoulder 6 [id number] / [id number] Central Screw SCREW Right: [employer]omet 12/11/2026 [id number] 5 / Implanted: Qty: 1 on 12/19/2016 by Jude Rios MD at [facility] Shoulder 7 [id number] / [id number] Locking Screw SCREW Right: [employer]omet 09/16/2026 24086 0 / Implanted: Qty: 1 on 12/19/2016 by Jude Rios MD at [facility] Shoulder 4 [id number] / [id number] Locking Screw SCREW Right: [employer]omet 11/04/2026 06014 0 / Implanted: Qty: 1 on 12/19/2016 by Jude Rios MD at [facility] Shoulder 2 [id number] / [id number] Nonlocking Screw SCREW Right: [employer]omet 10/15/2026 18 0557 / Implanted: Qty: 1 on 12/19/2016 by Jude Rios MD at [facility] Shoulder 8 [id number] / [id number] Nonlocking Screw SCREW Right: [employer]omet 09/13/2026 18 0557 / Implanted: Qty: 1 on 12/19/2016 by Jude Rios MD at [facility] Shoulder 4 [id number] / [id number] Bone Cement Restrictor SHOULDER Right: Biomet 021 [id number] / Implanted: Qty: 1 on 12/19/2016 by Jude Rios MD at [facility] Shoulder 3 [id number] / [id number] Humeral Bearing SHOULDER Right: [employer]omet 11/17/2021 XL- [id number] / Implanted: Qty: 1 on 12/19/2016 by Jude Rios MD at [facility] Shoulder 2 [id number] / [id number] Humeral Tray With Locking Ring SHOULDER Right: [employer]omet 09/05/2026 [id number] / Implanted: Qty: 1 on 12/19/2016 by Jude Rios MD at [facility] Shoulder 2 [id number] / [id number] Mini Baseplate SHOULDER Right: [employer]omet 10/09/2026 0100 [id number] / Implanted: Qty: 1 on 12/19/2016 by Jude Rios MD at [facility] Shoulder 1 [id number] / [id number] Glenosphere SHOULDER Right: [employer]omet 11/26/2026 [id number] / Implanted: Qty: 1 on 12/19/2016 by Jude Rios MD at [facility] Shoulder 7 [id number] / [id number] Humeral Fracture Stem Stem Right: Biomet 08/30/19 27 [id number] / Implanted: Qty: 1 on 12/19/2016 by Jdue Rios MD at [facility] Shoulder 4 [id number] / [id number] documented as of this encounter Results Not on filedocumented in this encounter Insurance Payer Benefit Plan / Subscriber ID Effective Dates Phone Addre ss Type Group MEDICARE MEDICARE PART xxxxxxxxxxx 2007-Arnie [phone] [address] Medicare A & B t 2 [id number] ANALILIA BEDOLLA [id number] documented as of this encounter
[2019-09-15] MEDS ORDERED: LIDOCAINE 1% MPF 2 ML AMPULE ONE (09:34)
[2019-09-15] MEDS ORDERED: NA CHLORIDE 0.9% 500 ML ONE (09:35)
[2019-09-15] MEDS ORDERED: TETANUS & DIPHTHERIA TOX,ADULT 0.5 ML VIAL ONE (09:35)
[2019-09-15 09:48] LABS: Absolute Lymphocytes (CBC) 0.9 K/uL (0.7-4.9); Basophils % 0.6 % (0-1.3); Hematocrit 34.3 % (36.0-45.0); Lymphocytes % 13.9 % (15.3-44.8); MPV 7.2 fL (7.6-11.3); RBC Red Blood Cell Count 3.81 M/uL (3.86-4.86)
[2019-09-15] MEDS ORDERED: levETIRAcetam 500 MG in NA CHLORIDE 0.9% 100 ML IV ONE (10:00)
[2019-09-15 10:11] LABS: ALT/SGPT 21 U/L (12-78); AST/SGOT 19 U/L (15-37); Albumin 2.8 g/dL (3.4-5.0); Alkaline Phosphatase 139 U/L (45-117); BUN Blood Urea Nitrogen 10 mg/dL (7-18); Bicarbonate 27 mmol/L (21-32); Bilirubin Total 0.4 mg/dL (0.2-1.0); Glucose Level 102 mg/dL (74-106); Potassium 4.3 mmol/L (3.5-5.1); Protein, Total 6.8 g/dL (6.4-8.2); Sodium Level 139 mmol/L (136-145); Troponin (Emerg Dept Use Only) < 0.02 ng/mL (0.0-0.045)
--- NOTE | 2019-09-15 10:36 | RAD REPORT ---
EXAM DESCRIPTION: CT - [id number] - 09/15/2019 9:45 am CLINICAL HISTORY: Trauma, head and neck injury. PAIN COMPARISON: No comparisons TECHNIQUE: Axial 5 mm thick images of the head were obtained. Axial 2 mm thick images of the cervical spine were obtained with sagittal and coronal reconstruction images generated and reviewed. All CT scans are performed using dose optimization technique as appropriate and may include automated exposure control or mA/KV adjustment according to patient size. FINDINGS: CT HEAD WITHOUT CONTRAST: No acute hemorrhage, hydrocephalus or extra-axial collection is identified.Moderate generalized brain atrophy is present with moderate periventricular and deep white matter chronic microvascular ischemi c changes.No areas of brain edema or midline shift. The paranasal sinuses and mastoids are clear.The calvarium is intact. Moderate frontal scalp hematoma . CT CERVICAL SPINE WITHOUT CONTRAST: No fracture or subluxation.Mild lower cervical degenerative changes.No prevertebral soft tissues swel ling is identified. IMPRESSION: No acute intracranial or cervical spine findings.
--- NOTE | 2019-09-15 11:13 | EKG ---
Test Date: 2019-09-15 Test Time: 09:37:28 Machine Dyer: NOLAN MEASUREMENT RESULTS: Intervals: Rate: 73 NJ: 150 QRSD: 84 QT: 394 QTc: 434 [place]: P: 81 NJ: 150 QRS: 32 T: 93 INTERPRETIVE STATEMENTS: Normal sinus rhythm Nonspecific ST and T wave abnormality Abnormal ECG Compared to ECG 04/25/2019 11:42:35 ST (T wave) deviation now present Atrial premature complex(es) no longer present Electronically Signed On 09-15-19 11:13:22 CDT by Kaushik Castellanos
[2019-09-15 11:34] LABS: Urine Blood NEGATIVE (NEG); Urine Glucose NEGATIVE (NEG); Urine Protein NEGATIVE (NEG); Urine Specific Gravity 1.025 (1.005-1.030)
[2019-09-15] MEDS ORDERED: LIDOCAINE 1% W/EPI 1:100,000 MDV 20 ML VIAL ONE (11:49)
--- NOTE | 2019-09-15 11:57 | EDPHYS ---
Physician Documentation [facility] Name: Ines Iqbal Age: 78 yrs Sex: Female : 1940 Arrival Date: 09/15/2019 Time: 08:48 Bed 18 Private MD: ED Physician Otilio Hair HPI: 09/14 09:12 This 78 yrs old Female presents to ER via EMS with complaints of Fall Injury. [facility] 09:12 Details of fall: The patient fell from an upright position, while standing, while john walking. Onset: The symptoms/episode began/occurred just prior to arrival. Associated injuries: The patient sustained injury to the head. Severity of symptoms: At their worst the symptoms were mild. Historical: - Allergies: 09:01 Morphine; em 09:01 PENICILLINS; em 09:01 Macrobid; em 09:01 Chocolate; em - Home Meds: 09:01 metoprolol tartrate 50 mg Oral tab [Active]; magnesium oxide 400 mg Oral tab [Active]; em Klor-Con M20 20 mEq Oral TbTQ 1 tab once daily [Active]; Synthroid 100 mcg Oral tab 1 tab once daily [Active]; tramadol 50 mg Oral tab 1 tab every 6 hours [Active]; - PMHx: 09:01 Anemia; Hypothyroidism; Hyperlipidemia; Hypertension; Atrial Fib; convulsions; em traumatic subdural hemorrhage; hypokalemia; - Immunization history:: Adult Immunizations up to date. - Social history:: Smoking status: unknown. ROS: 09:13 Constitutional: Negative for fever, chills, and weight loss, Eyes: Negative for injury, john pain, redness, and discharge, ENT: Negative for injury, pain, and discharge, Neck: Negative for injury, pain, and swelling, Cardiovascular: Negative for chest pain, palpitations, and edema, Respiratory: Negative for shortness of breath, cough, wheezing, and pleuritic chest pain, Abdomen/GI: Negative for abdominal pain, nausea, vomiting, diarrhea, and constipation, Back: Negative for injury and pain, : Negative for injury, bleeding, discharge, and swelling, MS/Extremity: Negative for injury and deformity, Neuro: Negative for headache, weakness, numbness, tingling, and seizure, Psych: Negative for depression, anxiety, suicide ideation, homicidal ideation, and hallucinations, Allergy/Immunology: Negative for hives, rash, and allergies, Endocrine: Negative for neck swelling, polydipsia, polyuria, polyphagia, and marked weight changes, Hematologic/Lymphatic: Negative for swollen nodes, abnormal bleeding, and unusual bruising. 09:13 Skin: Positive for hematoma, laceration(s), of the top of head. 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 Exam: 09:13 Constitutional: This is a well developed, well nourished patient who is awake, alert, john and in no acute distress. Eyes: Pupils equal round and reactive to light, extra-ocular motions intact. Lids and lashes normal. Conjunctiva and sclera are non-icteric and not injected. Cornea within normal limits. Periorbital areas with no swelling, redness, or edema. ENT: Nares patent. No nasal discharge, no septal abnormalities noted. Tympanic membranes are normal and external auditory canals are clear. Oropharynx with no redness, swelling, or masses, exudates, or evidence of obstruction, uvula midline. Mucous membranes moist. Neck: Trachea midline, no thyromegaly or masses palpated, and no cervical lymphadenopathy. Supple, full range of motion without nuchal rigidity, or vertebral point tenderness. No Meningismus. Chest/axilla: Normal chest wall appearance and motion. Nontender with no deformity. No lesions are appreciated. Cardiovascular: Regular rate and rhythm with a normal S1 and S2. No gallops, murmurs, or rubs. Normal PMI, no JVD. No pulse deficits. Respiratory: Lungs have equal breath sounds bilaterally, clear to auscultation and percussion. No rales, rhonchi or wheezes noted. No increased work of breathing, no retractions or nasal flaring. Abdomen/GI: Soft, non-tender, with normal bowel sounds. No distension or tympany. No guarding or rebound. No evidence of tenderness throughout. Back: No spinal tenderness. No costovertebral tenderness. Full range of motion. Skin: Warm, dry with normal turgor. Normal color with no rashes, no lesions, and no evidence of cellulitis. MS/ Extremity: Pulses equal, no cyanosis. Neurovascular intact. Full, normal range of motion. Neuro: Awake and alert, GCS 15, oriented to person, place, time, and situation. Cranial nerves II-XII grossly intact. Motor strength 5/5 in all extremities. Sensory grossly intact. Cerebellar exam normal. Normal gait. Psych: Awake, alert, with orientation to person, place and time. Behavior, mood, and affect are within normal limits. 09:13 Head/face: Noted is hematoma, a laceration(s), that is deep, 1.5 cm(s). 09:41 ECG was reviewed by the Attending Physician. [facility] Vital Signs: 08:51 BP 123 / 61; Pulse 77; Resp 18; Temp 99.0(O); Pulse Ox 96% on R/A; Weight 58.97 kg; em Height 5 ft. 3 in. (160.02 cm); 08:51 Body Mass Index 23.03 (58.97 kg, 160.02 cm) em Laceration: 11:57 Wound Repair of 2.5cm ( 1.0in ) subcutaneous laceration to top of head. Irregularly john shaped.. Skin/tissue flap noted.. Distal neuro/vascular/tendon intact. Anesthesia: Local anesthetic administered with 5 mls of 1% lidocaine w/ Epi. Wound prep: Simple cleansing by me. Skin closed with 3 DINORA Prolene using staple gun. Dressed with Neosporin. Patient tolerated well. MDM: 08:52 Patient medically screened. [facility] 09:15 Data reviewed: vital signs, nurses notes, lab test result(s), EKG, radiologic studies, john CT scan. 09:15 Differential diagnosis: Contusion of Hematoma on Laceration of scalp, forehead, john Intracranial bleed- Concussion cerebral contusion. Differential diagnosis: closed head injury, laceration, cardiac arrhythmia, seizure, TIA. Data interpreted: nail expert: rate is 77 beats/min, Pulse oximetry: on room air is 96 %. Test interpretation: by ED physician or midlevel provider: ECG. Counseling: I had a detailed discussion with the patient and/or guardian regarding: the historical points, exam findings, and any diagnostic results supporting the discharge/admit diagnosis, lab results, radiology results, the need for outpatient follow up, for definitive care, a neurologist. 12:00 ED course: PT AT BASELINE, will dc to nh, follow up, return as needed, fall and seizure john precautions given. 09/14 09:11 Order name: CBC with Diff; Complete Time: 10:26 [facility] 09/14 09:11 Order name: Comprehensive Metabolic Panel; Complete Time: 10:26 [facility] 09/14 09:11 Order name: CT Head C Spine; Complete Time: 11:55 [facility] 09/14 09:11 Order name: Troponin (emerg Dept Use Only); Complete Time: 10:26 [facility] 09/14 11:02 Order name: Urine Culture 09/14 11:17 Order name: Urine Dipstick--Ancillary (enter results); Complete Time: 11:55 09/14 09:11 Order name: EKG; Complete Time: 09:12 [facility] 09/14 09:11 Order name: EKG - Nurse/Tech; Complete Time: 09:42 [facility] 09/14 09:11 Order name: Urine Dipstick-Ancillary (obtain specimen); Complete Time: 11:02 [facility] 09/14 09:11 Order name: Suture Tray at Bedside; Complete Time: 13:33 [facility] 09/14 09:11 Order name: Wound dressing; Complete Time: 13:32 [facility] 09/14 09:11 Order name: Seizure Precautions; Complete Time: 09:22 [facility] EC:41 Rate is 73 beats/min. Rhythm is regular. QRS [place] is Normal. IA interval is normal. QRS john interval is normal. QT interval is normal. No Q waves. T waves are Normal. No ST changes noted. Clinical impression: NSR w/ Non-specific ST/T Changes and No evidence of ischemia. Interpreted by me. Reviewed by me. Administered Medications: 09:35 Drug: NS 0.9% 500 ml Route: IV; Rate: bolus; Site: right forearm; 09:37 Drug: Tetanus-Diphtheria Toxoid Adult 0.5 ml {Vocational Rehabilitation Counselor: [place]. Exp: em 06/17/2021. Lot #: [id number]. } Route: IM; Site: right deltoid; 10:25 Drug: Keppra 500 mg Route: IV; Rate: per protocol; Site: right antecubital; 11:30 Drug: Lidocaine-Epinephrine -2 % (1:100,000) 10 ml Route: Infiltration; Disposition: 09/15/19 11:56 Discharged to Home. Impression: Fall due to bumping against object, Epileptic seizures related to external causes, not intractable, Laceration without foreign body of other part of head, Superficial injury of head. - Condition is Stable. - Discharge Instructions: Head Injury, Adult, Facial Laceration, Nonepileptic Seizures, Seizure, Adult, Seizure, Adult, Rjsm-hv-Meof, Facial Laceration, Wawq-jf-Tthc, Fall Prevention in the Home, Snyi-ug-Ybwa, Head Injury, Adult, Nyyk-fy-Mlzb. - Prescriptions for Keppra 500 mg Oral Tablet - take 1 tablet by ORAL route every 12 hours; 20 tablet. Keflex 500 mg Oral Capsule - take 1 capsule by ORAL route every 8 hours for 10 days; 21 capsule. - Medication Reconciliation Form, Thank You Letter, Antibiotic Education, Prescription Opioid Use form. - Follow up: Private Physician; When: 2 - 3 days; Reason: Recheck today's complaints, Continuance of care, Re-evaluation by your physician. Follow up: Stevan Soto; When: 2 - 3 days; Reason: Recheck today's complaints, Re-evaluation by your physician. - Problem is new. - Symptoms have improved. Signatures: Dispatcher [employer] Otilio Morales MD MD cha Munoz, Edgar, Pratima Duran RN, RN RN Brianne Mendez RN RN Scarlett Mejia RN RN Corrections: (The following items were deleted from the chart) 14:59 11:56 09/15/2019 11:56 Discharged to Home. Impression: Fall due to bumping against hb object; Epileptic seizures related to external causes, not intractable; Laceration without foreign body of other part of head; Superficial injury of head. Condition is Stable. Discharge Instructions: Head Injury, Adult, Facial Laceration, Facial Laceration, Hajl-wd-Cikm, Fall Prevention in the Home, Agtk-bh-Xrxd, Head Injury, Adult, Qjlz-tr-Uxxa, Nonepileptic Seizures, Seizure, Adult, Seizure, Adult, Nsya-nm-Lpkg. Prescriptions for Keppra 500 mg Oral Tablet - take 1 tablet by ORAL route every 12 hours; 20 tablet. and Forms are Medication Reconciliation Form, Thank You Letter, Antibiotic Education, Prescription Opioid Use. Follow up: Private Physician; When: 2 - 3 days; Reason: Recheck today's complaints, Continuance of care, Re-evaluation by your physician. Follow up: Stevan Soto; When: 2 - 3 days; Reason: Recheck today's complaints, Re-evaluation by your physician. Problem is new. Symptoms have improved. john
--- NOTE | 2019-09-15 11:57 | ER ---
Nurse's Notes [facility] Name: Ines Iqbal Age: 78 yrs Sex: Female : 1940 Arrival Date: 09/15/2019 Time: 08:48 Bed 18 Private MD: Diagnosis: Fall due to bumping against object;Epileptic seizures related to external causes, not intractable;Laceration without foreign body of other part of head;Superficial injury of head Presentation: 09/14 08:51 Chief complaint: EMS states: called out for laceration after having a seizure, has hx em of seizures, hematoma and small laceration noted to top of head, no hx of blood thinners, pt reports back pain. Coronavirus screen: Patient denies a cough. Patient denies shortness of breath or difficulty breathing. Patient denies measured and/or subjective temperature greater than 100.4F prior to today's visit. Patient denies travel on a cruise ship or to a country the [facility] currently lists as an affected area. Patient denies contact with known and/or suspected case of COVID-19. Ebola Screen: Patient negative for fever greater than or equal to 101.5 degrees Fahrenheit, and additional compatible Ebola Virus Disease symptoms Patient denies exposure to infectious person. Patient denies travel to an Ebola-affected area in the 21 days before illness onset. No symptoms or risks identified at this time. Initial Sepsis Screen: Does the patient meet any 2 criteria? No. Patient's initial sepsis screen is negative. Does the patient have a suspected source of infection? No. Patient's initial sepsis screen is negative. Risk Assessment: Do you want to hurt yourself or someone else? Patient reports no desire to harm self or others. Onset of symptoms was September 15, 2019. 08:51 Method Of Arrival: EMS: [facility] em 08:51 Acuity: KISHORE 3 em Historical: - Allergies: 09:01 Morphine; em 09:01 PENICILLINS; em 09:01 Macrobid; em 09:01 Chocolate; em - Home Meds: 09:01 metoprolol tartrate 50 mg Oral tab [Active]; magnesium oxide 400 mg Oral tab [Active]; em Klor-Con M20 20 mEq Oral TbTQ 1 tab once daily [Active]; Synthroid 100 mcg Oral tab 1 tab once daily [Active]; tramadol 50 mg Oral tab 1 tab every 6 hours [Active]; - PMHx: 09:01 Anemia; Hypothyroidism; Hyperlipidemia; Hypertension; Atrial Fib; convulsions; em traumatic subdural hemorrhage; hypokalemia; - Immunization history:: Adult Immunizations up to date. - Social history:: Smoking status: unknown. Screenin:51 Abuse screen: no apparent signs noted. Nutritional screening: No deficits noted. em Tuberculosis screening: No symptoms or risk factors identified. Fall Risk Fall in past 12 months (25 points). Secondary diagnosis (15 points) seizures, dementia, impaired mobility, Total Wilkinson Fall Scale indicates Low Risk Score (25-44 pts). Side Rails Up X 2 Placed close to Nursing Station. Assessment: 12:50 Reassessment: awaiting transport from [place], diagnostics faxed to MELISA [facility]. iw 13:05 Reassessment: Patient appears in no apparent distress at this time. Patient and/or iw family updated on plan of care and expected duration. Pain level reassessed. Vital Signs: 08:51 BP 123 / 61; Pulse 77; Resp 18; Temp 99.0(O); Pulse Ox 96% on R/A; Weight 58.97 kg; em Height 5 ft. 3 in. (160.02 cm); 08:51 Body Mass Index 23.03 (58.97 kg, 160.02 cm) em ED Course: 08:48 Patient arrived in ED. em 08:51 Patient has correct armband on for positive identification. Placed in gown. Bed in low em position. Call light in reach. Side rails up X2. Pulse ox on. NIBP on. 08:52 Otilio Hair MD is Attending Physician. john 08:53 Triage completed. em 09:01 Arm band placed on. em 09:22 Angus Schafer, RN is Primary Nurse. em 09:30 EKG done, by biology specimen technician. reviewed by Otilio Hair MD. tc 09:45 CT Head C Spine In Process Unspecified. EDMS 11:56 Stevan Soto MD is Referral Physician. john 13:22 Primary Nurse role handed off by Angus Schafer, RN iw 13:22 Pratima Cheney, MELISA is Primary Nurse. iw Administered Medications: 09:35 Drug: NS 0.9% 500 ml Route: IV; Rate: bolus; Site: right forearm; em 09:37 Drug: Tetanus-Diphtheria Toxoid Adult 0.5 ml {[employer] Rol[employer]: [place]. Exp: em 06/17/2021. Lot #: [id number]. } Route: IM; Site: right deltoid; 10:25 Drug: Keppra 500 mg Route: IV; Rate: per protocol; Site: right antecubital; 11:30 Drug: Lidocaine-Epinephrine -2 % (1:100,000) 10 ml Route: Infiltration; Outcome: 11:56 Discharge ordered by MD. lopez 14:59 Patient left the ED. hb Signatures: Dispatcher [employer] EDOtilio Eller MD MD cha Munoz, Edgar RN Pratima Duran RN RN iw Callis, Tiffany, corporate recruiter EKG [facility] Brianne Mendez RN RN hb Harris, Amy, RN RN
[2019-09-15 15:13] VITALS: BP 123/61; TEMP 99; O2SAT 96
== END 2019-09-15 14:59 | disposition home or self-care (01) ==
LOC: ER 08:46
PROC: 0JQ00ZZ Repair Scalp Subcutaneous Tissue and Fascia, Open Approach (ICD-10-PCS; principal; 2019-09-15)
DX: S01.01XA Laceration without foreign body of scalp, initial encounter (principal); G40.509 Epileptic seizures related to external causes, not intractable, without status epilepticus; W18.00XA Striking against unspecified object with subsequent fall, initial encounter; Y93.01 Activity, walking, marching and hiking; Y92.9 Unspecified place or not applicable; Z23 Encounter for immunization; Z88.0 Allergy status to penicillin; Z88.5 Allergy status to narcotic agent; Z88.8 Allergy status to other drugs, medicaments and biological substances; Z91.018 Allergy to other foods; I10 Essential (primary) hypertension; E03.9 Hypothyroidism, unspecified; I48.91 Unspecified atrial fibrillation; E78.5 Hyperlipidemia, unspecified
CPT/HCPCS: 93005; 87088; 85025; 87086; 36415; 81003; 84484; 80053; 70450; 72125; 90471; 90714; 96374; 99284; 12001; J1953; J2001; J7040

== ENCOUNTER 2019-10-13 12:00 | Emergency (ER) | payer OTHER ==
--- OUTSIDE RECORDS SUMMARY | 2019-10-13 12:03 | XMS REPORT | Continuity of Care Document ---
:1940 Author Organization [facility] t Address [address] [place] [address] Care Team Providers Name Role Phone Doctor Unassigned, Name Attending Clinician Unavailable Ramon FARIAS Attending Clinician Caio FUNEZ S Attending Clinician Tomas STRATTON, F Attending Clinician Benson FARIAS Attending Clinician Christiano FARIAS Attending Clinician Eve STRATTON, R Attending Clinician Erica FARIAS Gene Attending Clinician Beck VINCENT, L Attending Clinician Unavailable Amee Orozco Attending [...] Date/Time Type Type Clinicians Facility Department ID 2019-09-20 2019-09-20 Chris DU [id number] 00:00:00 00:00:00 Only Unassigned, NEMO [id number] [place] [facility] [id number] 2019-08-15 2019-08-15 Telephone Ramon [facility] [[email or web address]] [id number] 00:00:00 00:00:00 Tammy Hiram [id number] [place] [id number] Professio [phone] [facility] 188 Building 2019-08-11 2019-08-12 Emergency Neda Kearney [facility] [[email or web address]] [id number] 13:22:30 19:51:00 Pepito Marin [id number]. 10 Barb Knowles [place] [id number] [place] [phone] [id number] 2019-08-12 2019-08-12 [facility]phone [facility] [id number] 00:00:00 00:00:00 [facility] [id number] [place] [id number] Professio [phone] [facility] 044 Office Building One 2019-07-26 2019-07-26 Refill [facility] [id number] 00:00:00 00:00:00 [facility] [id number] [place] [id number] Professio [phone] [facility] 044 Office Building One 2019-07-24 2019-07-24 Emergency [facility] [id number] 10:09:32 13:42:00 Keisha Gandhi [id number] [place] [id number] [place] [id number] [id number] 2019-07-20 2019-07-20 Telephone [facility] [id number] 00:00:00 00:00:00 Kosta Gandhi [id number] [place] [id number] Professio [phone] [facility] 092 Building 2019-07-11 2019-07-11 Orders Doctor DU [id number] 00:00:00 00:00:00 Only Unassigned, NEMO [id number] [place] [facility] [id number] [id number] 2019-06-28 2019-06-28 Transition [place] [id number] 00:00:00 00:00:00 of Care Senia Johnson [id number] [place] [id number] [id number] 2019-06-28 2019-06-28 Telephone [facility] [id number] 00:00:00 00:00:00 [facility] [id number] [place] [id number] Professio [phone] [place] 044 Office Building One 2019-06-24 2019-06-26 Emergency Britt, Asim Lubin [facility] [[email or web address]] 1.2.840. [id number] 10:14:00 13:15:00 Ilya Wen [id number] [place] [id number] [place] [phone] [id number] 2019-06-06 2019-06-06 Office Erica [facility] [[email or web address]] [id number] 14:22:34 15:53:57 Visit Kosta Gandhi [id number] [place] [id number] Professio [phone] nal 092 Building 2019-06-06 2019-06-06 Orders Doctor FLORIAN [id number] 00:00:00 00:00:00 Only Unassigned, NEMO [id number] [place] [facility] [phone] [id number] Results This patient has no known results.
--- OUTSIDE RECORDS SUMMARY | 2019-10-13 12:08 | XMS REPORT | Summary of Care ---
:1940 Author Organization [facility] Address [address] [place] [address] Care Team Providers Name Role Phone MD Christiano Primary Care Provider Encounter Details Date Type Department Care Team Description 09/20/2019 Orders Only [facility] Doctor Unassigned, No [address] [place] [address] [address] [place] [address] Allergies Active Allergy Reactions Severity Noted Date Comments Chocolate Flavor Anxiety 04/20/2015 Nitrofurantoin Unknown - See 04/20/2015 Monohyd/M-Cryst comments Morphine Nausea and/or 12/19/2016 Vomiting Penicillin Other - See comments 12/19/2016 Pt stat es "several family members are allergic so i t hink i am" documented as of this encounter (statuses as of 09/20/2019) Medications Medication Sig Dispensed Refills Start Date [...] as of this encounter (statuses as of 09/20/2019) Active Problems Problem Noted Date Opacity of lung on imaging study 08/12/2019 Syncope 08/11/2019 LOC (loss of consciousness) 06/25/2019 PAF (paroxysmal atrial fibrillation) 06/25/2019 Orthostatic hypotension 06/25/2019 Dizziness 06/24/2019 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 Right arm pain 2016 Essential hypertension 07/12/2015 Hyperlipemia 07/12/2015 Hypothyroidism 07/12/2015 Iron (Fe) deficiency anemia 07/12/2015 Vitamin D deficiency 07/12/2015 documented as of this encounter (statuses as of 09/20/2019) Immunizations Name Administration Dates Next Due Influenza [...] of this encounter Implants Implanted Type Area Labor Relations Specialist Device Shelf Model / Identifier Expiration Serial / Lot Date Cement CEMENT Right: [employer]omet 01/31/2018 [id number] / Implanted: Qty: 1 on 12/19/2016 by Jude Rios MD at [facility] Shoulder 6 [id number] / [id number] Cement CEMENT Right: [employer] 04/02/2018 [id number] / Implanted: Qty: 1 on 12/19/2016 by Jude Rios MD at [facility] Shoulder 6 [id number] / [id number] Central Screw SCREW Right: [employer] 12/11/2026 [id number] / Implanted: Qty: 1 on 12/19/2016 by Jude Rios MD at [facility] Shoulder 7 [id number] / [id number] Locking Screw SCREW Right: [employer] 09/16/2026 [id number] 0 / Implanted: Qty: 1 on 12/19/2016 by Jude Rios MD at [facility] Shoulder 4 [id number] / [id number] Locking Screw SCREW Right: [employer] 11/04/2026 [id number] 0 / Implanted: Qty: 1 on 12/19/2016 by Jude Rios MD at [facility] Shoulder 2 [id number] / [id number] Nonlocking Screw SCREW Right: [employer] 10/15/2026 18 [id number] / Implanted: Qty: 1 on 12/19/2016 by Jude Rios MD at [facility] Shoulder 8 / [id number] Nonlocking Screw SCREW Right: [employer] 09/13/2026 18 0557 / Implanted: Qty: 1 on 12/19/2016 by Jude Rios MD at [facility] Shoulder 4 [id number] / [id number] Bone Cement Restrictor SHOULDER Right: [employer] 021 [id number] / Implanted: Qty: 1 on 12/19/2016 by Jude Rios MD at [facility] Shoulder 3 [id number] / [id number] Humeral Bearing SHOULDER Right: [employer] 11/17/2021 XL- [id number] / Implanted: Qty: 1 on 12/19/2016 by Jude Rios MD at [facility] Shoulder 2 [id number] / [id number] Humeral Tray With Locking Ring SHOULDER Right: [employer] 09/05/2026 [id number] / Implanted: Qty: 1 on 12/19/2016 by Jude Rios MD at [facility] Shoulder 2 [id number] / [id number] Mini Baseplate SHOULDER Right: [employer] 10/09/2026 0100 [id number] / Implanted: Qty: 1 on 12/19/2016 by Jude Rios MD at [facility] Shoulder 1 [id number] / [id number] [employer] SHOULDER Right: [employer] 11/26/2026 [id number] / Implanted: Qty: 1 on 12/19/2016 by Jude Rios MD at [facility] Shoulder 7 [id number] / [id number] Humeral Fracture Stem Stem Right: [employer] 08/30/19 27 [id number] / Implanted: Qty: 1 on 12/19/2016 by Jude Rios MD at [facility] Shoulder 4 [id number] / [id number] documented as of this encounter Procedures Procedure Name Priority Date/Time Associated Diagnosis Comme nts EXTERNAL PROVIDER Routine 09/20/2019 12:01 AM CDT RECORDS documented in this encounter Results Not on filedocumented in this encounter Insurance Payer Benefit Plan / Subscriber ID Effective Dates Phone Addre ss Type Group MEDICARE MEDICARE PART xxxxxxxxxxx 2007-Arnie [phone] Medicare [id number] [place] [address] documented as of this encounter
--- NOTE | 2019-10-13 14:10 | EDPHYS ---
Physician Documentation [facility] Name: Ines Iqbal Age: 78 yrs Sex: Female : 1940 Arrival Date: 10/13/2019 Time: 12:01 Bed 7 Private MD: ED Physician Carlito Barnes HPI: 10/12 18:13 This 78 yrs old Female presents to ER via EMS with complaints of Urinary kdr Problem - Possible bladder prolapse. 18:13 The patient presents with Possible prolapsed bladder. Onset: The symptoms/episode kdr began/occurred suddenly, just prior to arrival. Modifying factors: The symptoms are alleviated by nothing, the symptoms are aggravated by nothing. Associated signs and symptoms: The patient has no apparent associated signs or symptoms. Severity of symptoms: At their worst the symptoms were very mild, in the emergency department the symptoms have resolved. It is unknown whether or not the patient has had similar symptoms in the past. It is unknown whether or not the patient has recently seen a physician. Caregivers report that she may have prolapsed her bladder. The patient has no c/o at this time. Historical: - Allergies: 12:41 Chocolate; ph 12:41 Macrobid; ph 12:41 Morphine; ph 12:41 PENICILLINS; ph - PMHx: 12:41 Anemia; Atrial Fib; convulsions; Hyperlipidemia; Hypertension; Hypokalemia; ph Hypothyroidism; traumatic subdural hemorrhage; - Immunization history:: Adult Immunizations unknown. - Social history:: Smoking status: Patient denies any tobacco usage or history of. ROS: 18:13 Constitutional: Negative for fever, chills, and weight loss, Eyes: Negative for injury, kdr pain, redness, and discharge, ENT: Negative for injury, pain, and discharge, Neck: Negative for injury, pain, and swelling, Cardiovascular: Negative for chest pain, palpitations, and edema, Respiratory: Negative for shortness of breath, cough, wheezing, and pleuritic chest pain, Abdomen/GI: Negative for abdominal pain, nausea, vomiting, diarrhea, and constipation, Back: Negative for injury and pain, MS/Extremity: Negative for injury and deformity, Skin: Negative for injury, rash, and discoloration, Neuro: Negative for headache, weakness, numbness, tingling, and seizure activity. Psych: Negative for depression, anxiety, suicide ideation, homicidal ideation, and hallucinations, Allergy/Immunology: Negative for hives, rash, and allergies, Endocrine: Negative for neck swelling, polydipsia, polyuria, polyphagia, and marked weight changes, Hematologic/Lymphatic: Negative for swollen nodes, abnormal bleeding, and unusual bruising. 18:13 : Positive for Possible prolapse of bladder, Negative for urinary symptoms, urinary frequency. Exam: 18:13 Constitutional: This is a well developed, well nourished patient who is awake, alert, kdr and in no acute distress. Head/Face: Normocephalic, atraumatic. Eyes: Pupils equal round and reactive to light, extra-ocular motions intact. Lids and lashes normal. Conjunctiva and sclera are non-icteric and not injected. Cornea within normal limits. Periorbital areas with no swelling, redness, or edema. Neck: Trachea midline, no thyromegaly or masses palpated, and no cervical lymphadenopathy. Supple, full range of motion without nuchal rigidity, or vertebral point tenderness. No Meningismus. Chest/axilla: Normal chest wall appearance and motion. Nontender with no deformity. No lesions are appreciated. Cardiovascular: Regular rate and rhythm with a normal S1 and S2. No gallops, murmurs, or rubs. Normal PMI, no JVD. No pulse deficits. Respiratory: Lungs have equal breath sounds bilaterally, clear to auscultation and percussion. No rales, rhonchi or wheezes noted. No increased work of breathing, no retractions or nasal flaring. Abdomen/GI: Soft, non-tender, with normal bowel sounds. No distension or tympany. No guarding or rebound. No evidence of tenderness throughout. Back: No spinal tenderness. No costovertebral tenderness. Full range of motion. Skin: Warm, dry with normal turgor. Normal color with no rashes, no lesions, and no evidence of cellulitis. MS/ Extremity: Pulses equal, no cyanosis. Neurovascular intact. Full, normal range of motion. Neuro: Awake and alert, GCS 15, oriented to person, place, time, and situation. Cranial nerves II-XII grossly intact. Motor strength 5/5 in all extremities. Sensory grossly intact. Cerebellar exam normal. Normal gait. Psych: Awake, alert, with orientation to person, place and time. Behavior, mood, and affect are within normal limits. Vital Signs: 12:04 BP 131 / 61; Pulse 68; Resp 18; Temp 98.1; Pulse Ox 100% on R/A; ph 13:00 BP 138 / 69; Pulse 62; Resp 17; Temp 97.9(O); Pulse Ox 100% on R/A; mh5 14:00 BP 118 / 64; Pulse 67; Resp 18; Pulse Ox 98% ; ph 15:41 BP 127 / 72; Pulse 64; Resp 18; Temp 97.8; Pulse Ox 98% on R/A; ph MDM: 14:09 Patient medically screened. kdr 18:13 Data reviewed: vital signs, nurses notes. kdr Administered Medications: No medications were administered Disposition: 10/13/19 14:09 Discharged to Home. Impression: Prolapsed bladder - resolved. - Condition is Stable. - Discharge Instructions: Pelvic Organ Prolapse. - Medication Reconciliation Form, Thank You Letter form. - Follow up: Private Physician; When: 2 - 3 days; Reason: If symptoms return, Further diagnostic work-up, Recheck today's complaints, Continuance of care, Re-evaluation by your physician. - Problem is new. - Symptoms are resolved. Signatures: Carlito Barnes MD MD kdr Ines Murillo RN RN ph Corrections: (The following items were deleted from the chart) 16:12 14:09 10/13/2019 14:09 Discharged to Home. Impression: Prolapsed bladder - resolved. ph Condition is Stable. Forms are Medication Reconciliation Form, Thank You Letter, Antibiotic Education, Prescription Opioid Use. Follow up: Private Physician; When: 2 - 3 days; Reason: If symptoms return, Further diagnostic work-up, Recheck today's complaints, Continuance of care, Re-evaluation by your physician. Problem is new. Symptoms are resolved. kdr
--- NOTE | 2019-10-13 14:10 | ER ---
Nurse's Notes [facility] Name: Ines Iqbal Age: 78 yrs Sex: Female : 1940 Arrival Date: 10/13/2019 Time: 12:01 Bed 7 Private MD: Diagnosis: Prolapsed bladder - resolved Presentation: 10/12 12:04 Chief complaint: EMS states: Pt from [place], staff was showering pt when they ph noticed what appears to be a prolapsed bladder or uterus, pt denies pain or urinary symptoms, hx of dementia. Coronavirus screen: Patient denies a cough. Patient denies shortness of breath or difficulty breathing. Patient denies measured and/or subjective temperature greater than 100.4F prior to today's visit. Patient denies travel on a cruise ship or to a country the [facility] currently lists as an affected area. Patient denies contact with known and/or suspected case of COVID-19. Ebola Screen: No symptoms or risks identified at this time. Initial Sepsis Screen: Does the patient meet any 2 criteria? No. Patient's initial sepsis screen is negative. Does the patient have a suspected source of infection? No. Patient's initial sepsis screen is negative. Risk Assessment: Do you want to hurt yourself or someone else? Patient reports no desire to harm self or others. Onset of symptoms was October 13, 2019. 12:04 Method Of Arrival: EMS: [facility] ph 12:04 Acuity: KISHORE 3 ph Historical: - Allergies: 12:41 Chocolate; ph 12:41 Macrobid; ph 12:41 Morphine; ph 12:41 PENICILLINS; ph - PMHx: 12:41 Anemia; Atrial Fib; convulsions; Hyperlipidemia; Hypertension; Hypokalemia; ph Hypothyroidism; traumatic subdural hemorrhage; - Immunization history:: Adult Immunizations unknown. - Social history:: Smoking status: Patient denies any tobacco usage or history of. Screenin:42 Abuse screen: Denies threats or abuse. Denies injuries from another. Nutritional ph screening: No deficits noted. Tuberculosis screening: No symptoms or risk factors identified. Fall Risk None identified. Assessment: 12:32 Reassessment: Nurse accompanied DR Barnes to assess pt for prolapse, no bulging noted ph to vagina or urethral area, pt denies pain or difficulty urinating. 13:00 General: Appears in no apparent distress. comfortable, well groomed, Behavior is calm, ph cooperative, appropriate for age. Pain: Denies pain. Neuro: Level of Consciousness is awake, alert, obeys commands, Oriented to person, place. Cardiovascular: Capillary refill < 3 seconds in bilateral fingers Patient's skin is warm and dry. Respiratory: Airway is patent Respiratory effort is even, unlabored, Respiratory pattern is regular, symmetrical. : Genitalia appear normal. Derm: Skin is intact, is healthy with good turgor, Skin is pink, warm \T\ dry. Musculoskeletal: Circulation, motion, and sensation intact. Range of motion: intact in all extremities. 14:30 Reassessment: Patient appears in no apparent distress at this time. Patient and/or ph family updated on plan of care and expected duration. Pain level reassessed. Pt awake and alert,oriented to person only. 15:37 Reassessment: Patient appears in no apparent distress at this time. Patient and/or ph family updated on plan of care and expected duration. Pain level reassessed. Pt up to bedside commode to urinate, checked rectal and vaginal area again for bulges or prolapse, none noted, report called to Zaida VINCENT at [place], awaiting transport back to facility. Vital Signs: 12:04 BP 131 / 61; Pulse 68; Resp 18; Temp 98.1; Pulse Ox 100% on R/A; ph 13:00 BP 138 / 69; Pulse 62; Resp 17; Temp 97.9(O); Pulse Ox 100% on R/A; mh5 14:00 BP 118 / 64; Pulse 67; Resp 18; Pulse Ox 98% ; ph 15:41 BP 127 / 72; Pulse 64; Resp 18; Temp 97.8; Pulse Ox 98% on R/A; ph ED Course: 12:01 Patient arrived in ED. ph 12:10 Carlito Barnes MD is Attending Physician. kdr 12:14 Triage completed. ph 12:38 Ines Murillo, MELISA is Primary Nurse. ph 12:42 Patient has correct armband on for positive identification. Placed in gown. Bed in low ph position. Call light in reach. Side rails up X 1. Pulse ox on. NIBP on. Door closed. Noise minimized. Warm blanket given. 12:42 Arm band placed on Patient placed in an exam room. ph 15:43 Diet: Patient given snack. mh5 16:00 No provider procedures requiring assistance completed. Patient did not have IV access ph during this emergency room visit. Administered Medications: No medications were administered Outcome: 14:09 Discharge ordered by . kdr 16:12 Patient left the ED. ph 16:12 Discharged to alf. Report called to MELISA Cerda ph 16:12 Condition: good 16:12 Discharge instructions given to alf. Signatures: Carlito Barnes MD MD kdr Ines Murillo RN RN Kelsey Welch [facility] Corrections: (The following items were deleted from the chart) 17:58 14:30 Reassessment: Patient appears in no apparent distress at this time. Patient ph and/or family updated on plan of care and expected duration. Pain level reassessed. Pt awake and alert,oriented to person only ph
[2019-10-13 16:28] VITALS: O2SAT 98
[2019-10-13 16:29] VITALS: BP 127/72; TEMP 97.8
== END 2019-10-13 16:12 | disposition home or self-care (01) ==
LOC: ER 12:00
DX: N81.10 Cystocele, unspecified (principal); I10 Essential (primary) hypertension; Z88.0 Allergy status to penicillin; Z88.5 Allergy status to narcotic agent; Z91.018 Allergy to other foods
CPT/HCPCS: 99283

== ENCOUNTER 2021-06-09 10:26 | Emergency (ER) | payer OTHER ==
--- OUTSIDE RECORDS SUMMARY | 2021-06-09 10:33 | XMS REPORT | Continuity of Care Document ---
:1940 Author Organization [facility] t Address [address] [place] [address] Care Team Providers Name Role Phone CITLALY Primary Care Physician Unavailable Doctor Unassigned, Name Attending Clinician Unavailable Ramon FARIAS Attending Clinician Caio FUNEZ S Attending Clinician Tomas STRATTON, F Attending Clinician Benson FARIAS Attending Clinician BENSON Attending Clinician Unavailable Citlaly FARIAS Attending Clinician Mila STRATTON R Attending Clinician Raman ZARAGOZA Attending Clinician Unavailable CITLALY Attending Clinician Unavailable Asa Maldonado MD Attending Clinician Beck VINCENT, L Attending Clinician Unavailable Amee Orozco Attending Clinician Carolyne FARIAS Attending Clinician CAROLYNE Attending Clinician Unavailable 2, Lab Attending Clinician Unavailable Benson FARIAS Admitting Clinician BENSON Admitting Clinician Unavailable Raman ZARAGOZA Admitting Clinician Unavailable Carolyne FARIAS Admitting Clinician CAROLYNE Admitting Clinician Unavailable Payers Payer Name Policy Type Policy Number Effective Date Expiration Date S ource Problems Condition Condition Condition Status Onset Resolution Last Treating Co mments Source Name Details Category Date Date Treatment Clinician Date Opacity of Opacity of Disease Active U nivers lung on lung on 4-10 ity of imaging imaging 00:00: [place] study study 00 Medical Branch Syncope Syncope Disease Active 2019- Univers 4-09 ity of 00:00: [place] 00 Medical Branch LOC (loss LOC (loss Disease Active Uni vers of of 2-22 [place]y of consciousn consciousn 00:[place] ess[place] ess) 00 Medical [facility] PAF PAF Disease Active Univers (paroxysma (paroxysma 2-22 it y of l atrial l atrial 00:00: [place] fibrillati fibrillati 00 Me dical on) on) Branch Orthostati Orthostati Disease Active U nivers c c 2-22 ity of hypotensio hypotensio 00:00[place] n n Medical [facility] Dizziness Dizziness Disease Active Uni vers 2-21 ity of 00:00: [place] 00 Medical Branch 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 00:00: [place] shoulder shoulder 00 Medica l arthroplas arthroplas Br anch ty ty Right arm Right arm Disease Active Uni vers pain pain 8-01 ity of 00:00: [place] [facility] Essential Essential Disease Active Uni vers hypertensi hypertensi 3-10 it y of on on 00:00: [place] [facility] Hyperlipem Hyperlipem Disease Active U nivers ia ia 3-10 ity of 00:00: [place] [facility] Hypothyroi Hypothyroi Disease Active U nivers dism dism 3-10 ity of 00:00: [place] [facility] Iron (Fe) Iron (Fe) Disease Active Uni vers deficiency deficiency 3-10 it y of anemia anemia 00:00: [place] [facility] Vitamin D Vitamin D Disease Active Uni vers deficiency deficiency 3-10 it y of 00:00: [place] 00 Medical Branch Allergies, Adverse Reactions, Alerts Allergy Allergy Status Severity Reaction(s) Onset Inactive Treating Comm ents Source Name Type Date Date Clinician Morphine Drug Active Nausea Univers Intolera and/or 8-18 ity of nce Vomiting 00:00: [place] [facility] MORPHINE DRUG Active N/V Univers INGREDI 8-18 ity of 00:00: [place] 00 Medical Branch PENICILL DRUG Active Other-Cmnt Univ ers IN INGREDI - ity of 00:00: [place] 00 Medical Branch Penicill Propensi Active Other - See Pt state s Univers in ty to comments 8-18 "several ity of adverse 00:00: family [place] reaction 00 members Medical s to are Branch drug allergic so i think i am" Chocolat Propensi Active Anxiety 2014-05 Unive rs e Flavor ty to 2-18 ity of adverse 00:00: [place] reaction 00 Medical s Branch Ciproflo Propensi Active Unknown - 2014-05 Uni vers xacin ty to See comments 2-18 ity of adverse 00:00: [place] reaction 00 Medical s Branch Nitrofur Propensi Active Unknown - 2014-05 Uni vers antoin ty to See comments 2-18 ity of Monohyd/ adverse 00:00: [place] M-Cryst reaction 00 Medical s Branch CHOCOLAT DRUG Active Anxiety 2014-05 Univers E FLAVOR INGREDI 2-18 ity of 00:00: [place] 00 Medical Branch NITROFUR DRUG Active Unknown-Cmnt 2014-05 Un ree ANTOIN 2-18 ity of MONOHYD/ 00:00: [place] M-CRYST 00 Medical Branch Social History Social Habit Start Date Stop Date Quantity Comments Source Sex Assigned At [facility] Alcohol intake 2019-08-11 2019-08-11 University of 00:00:00 00:00:00 [facility] Alcohol Comment 2016-12-16 2016-12-16 Occasional Drinker U niversity of 00:00:00 00:00:00 [facility] History of 1979-07-12 Cigarette Smoker [facility] of tobacco use 00:00:00 [facility] Smoking Status Start Date Stop Date Source Never smoker [facility] Former smoker 2019-06-06 00:00:00 2019-06-06 00:00:00 [facility] of [facility] Medications Ordered Filled Start Stop Current Ordering Indication Dosage Frequency Signature Comments Components Source Medication Medication Date Date Medication? Clinician (SIG) Name Name levothyroxi Yes 100ug 100 mcg, U nivers ne 4-11 Oral, ity of (SYNTHROID) 11:00: QAM-0600, [place] tablet 100 00 First dose Med ical mcg on Sat Branch 08/13/19 at 0600, Until Discontinu ed, Routine doxycycline 2020-0 Yes 100mg Take 100 U nivers monohydrate 4-11 mg by ity of 100 mg 00:54: mouth 2 [place] capsule 04 (two) Medical times Branch daily. ciprofloxac 2020-0 Yes 500mg Take 500 U nivers in HCl 500 4-11 mg by ity of mg tablet 00:54: mouth 2 [place] 04 (two) Medical times Branch daily. hydrocortis 2020-0 Yes 1{dose} Insert 1 Univers one 4-11 Dose into ity of (PROCTOSOL 00:54: rectum 2 [place] HC RECTAL) 04 (two) Medical times Branch daily. ciclopirox 2020-0 Yes 1{dose} Apply 1 U nivers (PENLAC) 8 4-11 Dose to ity of % solution 00:54: area(s[place] at [place] 04 bedtime. Medical Apply to Branch Nails. Cholecalcif 2020-0 Yes 1{capsu Take 1 U nivers colette, 4-11 le} capsule by ity of Vitamin D3, 00:54: mouth [place] (VITAMIN 04 daily. Medical D3) 25 mcg Branch (1,000 unit) capsule doxycycline 2020-0 Yes 100mg Take 100 U nivers monohydrate 4-11 mg by ity of 100 mg 00:54: mouth 2 [place] capsule 04 (two) Medical times Branch daily. ciprofloxac 2020-0 Yes 500mg Take 500 U nivers in HCl 500 4-11 mg by ity of mg tablet 00:54: mouth 2 [place] 04 (two) Medical times Branch daily. hydrocortis 2020-0 Yes 1{dose} Insert 1 Univers one 4-11 Dose into ity of (PROCTOSOL 00:54: rectum 2 [place] HC RECTAL) 04 (two) Medical times Branch daily. ciclopirox 2020-0 Yes 1{dose} Apply 1 U nivers (PENLAC) 8 4-11 Dose to ity of % solution 00:54: area(s[place] at [place] 04 bedtime. Medical Apply to Branch Nails. Cholecalcif 2020-0 Yes 1{capsu Take 1 U nivers colette, 4-11 le} capsule by ity of Vitamin D3, 00:54: mouth [place] (VITAMIN 04 daily. Medical D3) 25 mcg Branch (1,000 unit) capsule doxycycline 2020-0 Yes 100mg Take 100 U nivers monohydrate 4-11 mg by ity of 100 mg 00:54: mouth 2 [place] capsule 04 (two) Medical times Branch daily. ciprofloxac 2020-0 Yes 500mg Take 500 U nivers in HCl 500 4-11 mg by ity of mg tablet 00:54: mouth 2 [place] 04 (two) Medical times Branch daily. hydrocortis 2020-0 Yes 1{dose} Insert 1 Univers one 4-11 Dose into ity of (PROCTOSOL 00:54: rectum 2 [place] HC RECTAL) 04 (two) Medical times Branch daily. ciclopirox 2020-0 Yes 1{dose} Apply 1 U nivers (PENLAC) 8 4-11 Dose to ity of % solution 00:54: area(s[place] at [place] 04 bedtime. Medical Apply to Branch Nails. Cholecalcif 2020-0 Yes 1{capsu Take 1 U nivers colette, 4-11 le} capsule by ity of Vitamin D3, 00:54: mouth [place] (VITAMIN 04 daily. Medical D3) 25 mcg Branch (1,000 unit) capsule doxycycline 2020-0 Yes 100mg Take 100 U nivers monohydrate 4-11 mg by ity of 100 mg 00:54: mouth 2 [place] capsule 04 (two) Medical times Branch daily. ciprofloxac 2020-0 Yes 500mg Take 500 U nivers in HCl 500 4-11 mg by ity of mg tablet 00:54: mouth 2 [place] 04 (two) Medical times Branch daily. hydrocortis 2020-0 Yes 1{dose} Insert 1 Univers one 4-11 Dose into ity of (PROCTOSOL 00:54: rectum 2 [place] HC RECTAL) 04 (two) Medical times Branch daily. ciclopirox 2020-0 Yes 1{dose} Apply 1 U nivers (PENLAC) 8 4-11 Dose to ity of % solution 00:54: area(s) at [place] 04 bedtime. Medical Apply to Branch Nails. Cholecalcif 2020-0 Yes 1{capsu Take 1 U nivers colette, 4-11 le} capsule by ity of Vitamin D3, 00:54: mouth [place] (VITAMIN 04 daily. Medical D3) 25 mcg Branch (1,000 unit) capsule levothyroxi 2020-0 2020- No [id number] 100ug Take 1 Univers ne 100 mcg 08-12 tablet by ity of tablet 00:00: 04:59 mouth [place] 00 :00 every Medical morning Branch for 30 days. levothyroxi 2020-0 2020- No [id number] 100ug Take 1 Univers ne 100 mcg 08-1212 tablet by ity of tablet 00:00: 04:59 mouth [place] 00 :00 every Medical morning Branch for 30 days. mirtazapine 2020-0 2020- No 7.5mg Take 7.5 Univers 7.5 mg 08-11 mg by ity of tablet 22:05: 00:00 mouth at [place] 12 :00 bedtime. Medical Branch haloperidol 2019-0 2020- No 5mg 5 mg, Univ ers lactate 08-11 Intramuscu ity o f (HALDOL) 22:00: 21:03 lar, ONCE, [place] injection 5 00 :00 1 dose, Medic al mg Thu Branch 08/12/19 at 1700, Routine LORazepam 2019-0 2019- No .5mg 0.5 mg, Univ ers (ATIVAN) 08-11 Slow IV ity of injection 21:45: 20:37 Push, [place] 0.5 mg 00 :00 ONCE, 1 Medical dose, Thu Branch 08/12/19 at 1645, Routine vitamin 2020-0 Yes 1000ug 1,000 mcg, Un ree B-12 4-10 Oral, ity of (CYANOCOBAL 14:00: DAILY, [place] PABON) 00 First dose Medical tablet on Thu Branch 1,000 mcg 08/12/19 at 0900, Until Discontinu ed, Routine metoprolol 2019-0 Yes 50mg 50 mg, Unive rs succinate - Oral, ity of XL (TOPROL 14:00: DAILY, [place] XL) tablet 00 First dose Med ical 50 mg on Thu Branch 08/12/19 at 0900, Until Discontinu ed, Routine levothyroxi 2019-0 2020- No 88ug 88 mcg, Un ree ne -08-11 Oral, ity of (SYNTHROID) 11:00: 12:35 QAM-0600, [place] tablet 88 00 :17 First dose Medi caridad mcg on Thu Branch 08/12/19 at 0600, Until Discontinu ed, Routine rivastigmin 2020-0 Yes 3mg 3 mg, Unive rs e tartrate 4-10 Oral, ity of (EXELON) 06:15: QAM+PM, [place] capsule 3 00 First dose Medi caridad mg on Thu Branch 08/12/19 at 0115, Until Discontinu ed
Facu lty member approving Restricted medication : [facility] mirtazapine 2020-0 Yes 15mg 15 mg, Univ ers (REMERON) 4-10 Oral, QHS, ity of tablet 15 06:15: First dose [place] mg 00 on Thu Medical 08/12/19 at Branch 0115, Until Discontinu ed, Routine
Reason for Non-Formul zehra Use: SPECIFIC INDICATION FOR NONFORMULA RY PRODUCT
membership administrator approving Non-formul zehra medication : MEGADC doxycycline 2020-0 Yes 100mg 100 mg, Un ree hyclate 4-10 Oral, ity of (Vibramycin 06:15: Q12HA2, [place] ) capsule 00 First dose Medi caridad 100 mg on Thu Branch 08/12/19 at 0115, Until Discontinu ed
Reas on for Anti-Infec tive: Documented Infection< br>Documen benoit Infection Site: Skin / Soft Tissue
Duration of Therapy: 7 days ciprofloxac 2020-0 Yes 500mg 500 mg, Un ree in HCl 4-10 Oral, BID, ity of (CIPRO) 06:15: [place] tablet 500 00 on Thu Medical mg 08/12/19 at Branch 0115, Until Discontinu ed, STEFAN
Re ason for Anti-Infec tive: Documented Infection< br>Documen benoit Infection Site: Skin / Soft Tissue
Duration of Therapy: 7 days magnesium 2020-0 Yes 400mg 400 mg, Univ ers oxide 4-10 Oral, BID, ity of (MAG-OX 06:15: First dose [place] 400) tablet 00 on Thu Medica l 400 mg 08/12/19 at Branch 0115, Until Discontinu ed, Routine KCL 2020-0 Yes 20meq 20 mEq, Univers (KLOR-CON 4-10 Oral, ity of M20) tablet 06:15: DAILY, [place] 20 mEq 00 First dose Medical on Thu Branch 08/12/19 at 0115, Until Discontinu ed, Routine lactobacill 2019-0 Yes 1{tbl} 1 tablet, Univers us 4-10 Oral, QID, ity of acidophilus 06:15: First dose [place] (ACIDOPHILL 00 on Fri Medica l US) 25 08/12/19 at Branch million 0115, cell -100 Until mg captab 1 Discontinu tablet ed, Routine Cholecalcif 0 2020- No 1000U Take 1,000 Univers colette, 4-10 04-09 Units by ity of Vitamin D3, 06:11: 00:00 mouth [place] (VITAMIN 12 :00 every Medical D3) 1,000 morning. Branch unit capsule traMADol 0 Yes 50mg 50 mg, Univers (ULTRAM) 4-10 Oral, ity of tablet 50 06:10: Q6HPRN, [place] mg 52 Starting Medical Fri Branch 08/12/19 at 0110, Until Discontinu ed, Routine, Pain (scale 4-6) mirtazapine 2020- No [id number] 15mg Take 1 Univers 15 mg 4-10 05-11 03 tablet by ity of tablet 00:00: 04:59 mouth at [place] 00 :00 bedtime Medical for 30 Branch days. mirtazapine 2020- No [id number] 15mg Take 1 Univers 15 mg 4-10 05-11 03 tablet by ity of tablet 00:00: 04:59 mouth at [place] 00 :00 bedtime Medical for 30 Branch days. lactobacill 2020- No [id number] 1{tbl} Take 1 Univers us 4-10 04-18 tablet by ity of acidophilus 00:00: 04:59 mouth 4 [place] 25 million 00 :00 (four) Medical cell -100 times Branch mg captab daily for 7 days. lactobacill 2020- No [id number] 1{tbl} Take 1 Univers us 4-10 04-18 tablet by ity of acidophilus 00:00: 04:59 mouth 4 [place] 25 million 00 :00 (four) Medical cell -100 times Branch mg captab daily for 7 days. metoprolol 2020-0 Yes [id number] 50mg Take 1 Univers succinate 3-24 tablet by ity o f XL 50 mg 24 00:00: mouth [place] hr tablet 00 daily. Medical Branch metoprolol 2020-0 Yes [id number] 50mg Take 1 Univers succinate 3-24 tablet by ity o f XL 50 mg 24 00:00: mouth [place] hr tablet 00 daily. Medical Branch metoprolol 2020-0 Yes [id number] 50mg Take 1 Univers succinate 3-24 tablet by ity o f XL 50 mg 24 00:00: mouth [place] hr tablet 00 daily. Medical Branch metoprolol 2020-0 Yes [id number] 50mg Take 1 Univers succinate 3-24 tablet by ity o f XL 50 mg 24 00:00: mouth [place] hr tablet 00 daily. Medical Branch metoprolol 2020-0 Yes [id number] 50mg Take 1 Univers succinate 3-24 tablet by ity o f XL 50 mg 24 00:00: mouth [place] hr tablet 00 daily. Medical Branch mirtazapine 2020-0 Yes 7.5mg Take 1 Uni vers 7.5 mg 3-23 tablet by ity of tablet 00:00: mouth at [place] 00 bedtime. Medical Branch mirtazapine 2020-0 Yes 7.5mg Take 1 Uni vers 7.5 mg 3-23 tablet by ity of tablet 00:00: mouth at [place] 00 bedtime. Medical Branch mirtazapine 2020-0 2020- No 7.5mg Take 1 Un ree 7.5 mg 3-23 04-09 tablet by ity of tablet 00:00: 00:00 mouth at [place] 00 :00 bedtime. Medical Branch metoprolol 2020-0 Yes [id number] 50mg Take 1 Univers succinate 2-24 tablet by ity o f XL 50 mg 24 00:00: mouth [place] hr tablet 00 daily. Medical Branch metoprolol 2020-0 Yes [id number] 50mg Take 1 Univers succinate 2-24 tablet by ity o f XL 50 mg 24 00:00: mouth [place] hr tablet 00 daily. Medical Branch metoprolol 2020-0 Yes [id number] 50mg Take 1 Univers succinate 2-24 tablet by ity o f XL 50 mg 24 00:00: mouth [place] hr tablet 00 daily. Medical Branch metoprolol 2020-0 Yes [id number] 50mg Take 1 Univers succinate 2-24 tablet by ity o f XL 50 mg 24 00:00: mouth [place] hr tablet 00 daily. Medical Branch metoprolol 2020-0 Yes [id number] 50mg Take 1 Univers succinate 2-24 tablet by ity o f XL 50 mg 24 00:00: mouth [place] hr tablet 00 daily. Medical Branch metoprolol 2020-0 2020- No [id number] 50mg Take 1 Univers succinate 2-24 03-24 tablet by ity of XL 50 mg 24 00:00: 00:00 [place] hr tablet 00 :00 daily. Medical Branch Cholecalcif 2020-0 Yes 1000U Take 1,000 Univers colette, 2-23 Units by ity of Vitamin D3, 19:43: mouth [place] (VITAMIN 56 every Medical D3) 1,000 morning. Branch unit capsule Cholecalcif 2020-0 Yes 1000U Take 1,000 Univers colette, 2-23 Units by ity of Vitamin D3, 19:43: mouth [place] (VITAMIN 56 every Medical D3) 1,000 morning. Branch unit capsule Cholecalcif 2020-0 Yes 1000U Take 1,000 Univers colette, 2-23 Units by ity of Vitamin D3, 19:43: mouth [place] (VITAMIN 56 every Medical D3) 1,000 morning. Branch unit capsule Cholecalcif 2020-0 Yes 1000U Take 1,000 Univers colette, 2-23 Units by ity of Vitamin D3, 19:43: mouth [place] (VITAMIN 56 every Medical D3) 1,000 morning. Branch unit capsule Cholecalcif 2020-0 Yes 1000U Take 1,000 Univers colette, 2-23 Units by ity of Vitamin D3, 19:43: mouth [place] (VITAMIN 56 every Medical D3) 1,000 morning. Branch unit capsule Cholecalcif 2020-0 Yes 1000U Take 1,000 Univers colette, 2-23 Units by ity of Vitamin D3, 19:43: mouth [place] (VITAMIN 56 every Medical D3) 1,000 morning. Branch unit capsule Cholecalcif 2020-0 Yes 1000U Take 1,000 Univers colette, 2-23 Units by ity of Vitamin D3, 19:43: mouth [place] (VITAMIN 56 every Medical D3) 1,000 morning. Branch unit capsule doxycycline 2020-0 2020- No 100mg Take 100 Univers monohydrate 2-23 02-23 mg by ity of 100 mg 18:38: 00:00 mouth 2 [place] capsule 16 :00 (two) Medical times Branch daily. ciprofloxac 2020-0 2020- No 500mg Take 500 Univers in HCl 500 2-23 02-23 mg by ity of mg tablet 18:38: 00:00 mouth [place] 16 :00 every 12 Medical (twelve) Branch hours. haloperidol 2020-0 Yes 2mg 2 mg, Slow Univers lactate 2-23 IV Push, ity of (HALDOL) 05:40: PRN, 2 [place] injection 2 29 doses, Medica l mg Starting Branch 06/25/19 at 2340, Until Discontinu ed, Routine, Psychosis KCL 2020-0 2020- No 40meq 40 mEq, Univers (KLOR-CON 2-23 02-23 Oral, BID, ity of M20) tablet 02:00: 01:39 1 dose, [place] 40 mEq 00 :00 First dose Medical on Sat Branch 06/25/19 at 2000, Routine vitamin 2020-0 Yes [id number] 1000ug Take 1 U nivers B-12 1,000 2-23 tablet by ity of mcg tablet 00:00: mouth [place] 00 daily. Medical Branch vitamin 2020-0 Yes [id number] 1000ug Take 1 U nivers B-12 1,000 2-23 tablet by ity of mcg tablet 00:00: mouth [place] 00 daily. Medical Branch vitamin 2020-0 Yes [id number] 1000ug Take 1 U nivers B-12 1,000 2-23 tablet by ity of mcg tablet 00:00: mouth [place] 00 daily. Medical Branch vitamin 2020-0 Yes [id number] 1000ug Take 1 U nivers B-12 1,000 2-23 tablet by ity of mcg tablet 00:00: mouth [place] 00 daily. Medical Branch vitamin 2020-0 Yes [id number] 1000ug Take 1 U nivers B-12 1,000 2-23 tablet by ity of mcg tablet 00:00: mouth [place] 00 daily. Medical Branch vitamin 2020-0 Yes [id number] 1000ug Take 1 U nivers B-12 1,000 2-23 tablet by ity of mcg tablet 00:00: mouth [place] 00 daily. Medical Branch vitamin 2020-0 Yes [id number] 1000ug Take 1 U nivers B-12 1,000 2-23 tablet by ity of mcg tablet 00:00: mouth [place] 00 daily. Medical Branch vitamin 2020-0 Yes [id number] 1000ug Take 1 U nivers B-12 1,000 2-23 tablet by ity of mcg tablet 00:00: mouth [place] 00 daily. Medical Branch vitamin 2020-0 Yes [id number] 1000ug Take 1 U nivers B-12 1,000 2-23 tablet by ity of mcg tablet 00:00: mouth [place] 00 daily. Medical Branch vitamin 2020-0 Yes [id number] 1000ug Take 1 U nivers B-12 1,000 2-23 tablet by ity of mcg tablet 00:00: mouth [place] 00 daily. Medical Branch vitamin 2020-0 Yes [id number] 1000ug Take 1 U nivers B-12 1,000 2-23 tablet by ity of mcg tablet 00:00: mouth [place] 00 daily. Medical Branch iron 2020-0 Yes 200mg 200 mg, IV Univer s sucrose - Infusion, ity of (VENOFER) 17:30: Q24H, [place] 200 mg in 00 First dose Medi caridad NaCl 0.9% on Sat Branch (NS) 100 mL 06/25/19 at infusion 1130 metoprolol 2020-0 Yes 25mg 25 mg, Unive rs succinate 06-25 Oral, ity of XL (TOPROL 17:00: DAILY, [place] XL) tablet 00 First dose Med ical 25 mg on Sat Branch 06/25/19 at 1100, Until Discontinu ed, Routine magnesium 2020-0 Yes 400mg 400 mg, Univ ers oxide - Oral, BID, ity of (MAG-OX 17:00: First dose [place] 400) tablet 00 on Sat Medica l 400 mg 06/25/19 at Branch 1100, Until Discontinu ed, Routine cyanocobala 2020-0 Yes 1000ug 1,000 mcg, Univers min 06-25 Subcutaneo ity of (VITAMIN 15:45: us, Q24H, [place] B12) 00 First dose Medical injection on Sat Branch 1,000 mcg 06/25/19 at 0945, Until Discontinu ed, Routine KCL 2020-0 2020- No 40meq 40 mEq, Univers (KLOR-CON 06-25- Oral, ity of M20) tablet 15:45: 16:29 ONCE, 1 [place] 40 mEq 00 :00 dose, [facility] Medical 06/25/19 at Branch 0945, Routine rivaroxaban 2020-0 Yes 15mg 15 mg, Univ ers (XARELTO) 2- Oral, ity of tablet 15 15:00: DAILY, [place] mg 00 First dose Medical on Sat Branch 06/25/19 at 0900, Until Discontinu ed, Routine losartan 2019-2019- No 50mg 50 mg, Univer s (COZAAR) 06-25 Oral, ity of tablet 50 15:00: 16:35 DAILY, [place] mg 00 :27 First dose Medical on Sat Branch 06/25/19 at 0900, Until Discontinu ed, Routine levothyroxi Yes 88ug 88 mcg, Uni vers ne 06-25 Oral, ity of (SYNTHROID) 12:00: QAM-0600, [place] tablet 88 00 First dose Medi caridad mcg on Sat Branch 06/25/19 at 0600, Until Discontinu ed, Routine NaCl 0.9% 2019- No 1000mL at 75 Univ ers (NS) IV 06-25 mL/hr, IV ity of infusion 07:15: 07:04 Infusion, [place] 1,000 mL 00 :00 ONCE, 1 Medical dose, [facility] Branch 06/25/19 at 0115, Routine mupirocin Yes Univers (BACTROBAN 06-25 ity of OINT) 2 % 02:00: [place] skin 00 Medical ointment Branch doxycycline 2019- No 100mg 100 mg, U nivers hyclate 06-25 Oral, ity of (Vibramycin 00:00: 01:20 Q12HA2, 1 [place] ) capsule 00 :00 dose, Medical 100 mg First dose Branch on Thu06/24/19 at 1800
Re ason for Anti-Infec tive: Documented Infection< br>Documen benoit Infection Site: Wound
D uration of Therapy: 7 days ciprofloxac 2019- No 500mg 500 mg, U nivers in HCl 06-24 Oral, ity of (CIPRO) 23:30: 00:00 Q12H, 1 [place] tablet 500 00 :00 dose, Medical mg First dose Branch on Thu06/24/19 at 1730, STEFAN
Re ason for Anti-Infec tive: Empiric Therapy for Suspected Infection< br>Empiric Therapy Site: Wound
D uration of therapy: 72 hours carvediloL 2019-0 2020- No 37.5mg 37.5 mg, Univers (COREG) 06-24- Oral, BID ity of tablet 37.5 23:00: 06:14 MEALS, [place] mg 00 :34 First dose Medical on Thu Branch 06/24/19 at 1700, Until Discontinu ed, Routine acetaminoph 0 Yes 650mg 650 mg, Un ree en 06-24 Oral, ity of (TYLENOL) 22:55: Q6HPRN, [place] tablet 650 48 Starting Medic al mg Thu Branch 06/24/19 at 1655, Until Discontinu ed, Routine, Pain (scale 1-3) NaCl 0.9% 2020- No 500mL at 999 Univ ers (NS) bolus 06-24 mL/hr, 500 it y of infusion 18:45: 18:14 mL, IV [place] 500 mL 00 :00 Infusion, Medical ONCE, 1 Branch dose, Thu06/24/19 at 1245, STAT rivastigmin 0 Yes 1{patch Apply 1 Univers e 4.6 mg/24 2-06 } Patch to ity of hr patch 00:00: skin [place] 00 daily. [facility] Branch rivastigmin 0 Yes 1{patch Apply 1 Univers e 4.6 mg/24 2-06 } Patch to ity of hr patch 00:00: skin [place] 00 daily. [facility] Er rivastigmin 2019-0 Yes 1{patch Apply 1 Univers e 4.6 mg/24 2-06 } Patch to ity of hr patch 00:00: skin [place] 00 daily. [facility] Er rivastigmin 2019-0 Yes 1{patch Apply 1 Univers e 4.6 mg/24 2-06 } Patch to ity of hr patch 00:00: skin [place] 00 daily. [facility] Er rivastigmin 2019-0 Yes [id number] 1{patch Apply 1 Univers e 4.6 mg/24 2-03 } Patch to ity of hr patch 00:00: skin [place] 00 daily. [facility] Er rivastigmin 2020-0 Yes [id number] 1{patch Apply 1 Univers e 4.6 mg/24 2-03 } Patch to ity of hr patch 00:00: skin [place] 00 daily. [facility] Er rivastigmin 2019-0 Yes [id number] 1{patch Apply 1 Univers e 4.6 mg/24 2-03 } Patch to ity of hr patch 00:00: skin [place] 00 daily. Medical Branch rivastigmin 2020-0 Yes [id number] 1{patch Apply 1 Univers e 4.6 mg/24 2-03 } Patch to ity of hr patch 00:00: skin [place] 00 daily. Medical Branch rivastigmin 2020-0 Yes [id number] 1{patch Apply 1 Univers e 4.6 mg/24 2-03 } Patch to ity of hr patch 00:00: skin [place] 00 daily. Medical Branch rivastigmin 2019-0 Yes [id number] 1{patch Apply 1 Univers e 4.6 mg/24 2-03 } Patch to ity of hr patch 00:00: skin [place] 00 daily. Medical Branch rivastigmin 2019-0 Yes [id number] 1{patch Apply 1 Univers e 4.6 mg/24 2-03 } Patch to ity of hr patch 00:00: skin [place] 00 daily. Medical Branch rivastigmin 2019-0 Yes [id number] 1{patch Apply 1 Univers e 4.6 mg/24 2-03 } Patch to ity of hr patch 00:00: skin [place] 00 daily. Medical Branch rivastigmin 2019-0 Yes [id number] 1{patch Apply 1 Univers e 4.6 mg/24 2-03 } Patch to ity of hr patch 00:00: skin [place] 00 daily. Medical Branch rivastigmin 2020-0 Yes [id number] 1{patch Apply 1 Univers e 4.6 mg/24 2-03 } Patch to ity of hr patch 00:00: skin [place] 00 daily. Medical Branch rivastigmin 2019-0 Yes [id number] 1{patch Apply 1 Univers e 4.6 mg/24 2-03 } Patch to ity of hr patch 00:00: skin [place] 00 daily. Medical Branch rivastigmin 2020-0 2020- No [id number] 1{patch Apply 1 Univers e 4.6 mg/24 2-03 04-09 } Patch to ity of hr patch 00:00: 00:00 skin [place] 00 :00 daily. Medical Branch Ferrous 2019- Yes [id number] 1{tbl} Take 1 [facility] Fumarate-Fo 1-13 tablet by ity of lic Acid 00:00: mouth [place] (HEMATINIC/ 00 daily. Medica l FOLIC ACID) Branch 324 mg (106 mg iron)-1 mg Tab Ferrous 2018-05 Yes [id number] 1{tbl} Take 1 [facility] Fumarate-Fo 1-13 tablet by ity of lic Acid 00:00: mouth [place] (HEMATINIC/ 00 daily. Medica l FOLIC ACID) Branch 324 mg (106 mg iron)-1 mg Tab Ferrous 2018-05 Yes [id number] 1{tbl} Take 1 [facility] Fumarate-Fo 1-13 tablet by ity of lic Acid 00:00: mouth [place] (HEMATINIC/ 00 daily. Medica l FOLIC ACID) Branch 324 mg (106 mg iron)-1 mg Tab Ferrous 2018-05 Yes [id number] 1{tbl} Take 1 [facility] Fumarate-Fo 1-13 tablet by ity of lic Acid 00:00: mouth [place] (HEMATINIC/ daily. Medica l FOLIC ACID) Branch 324 mg (106 mg iron)-1 mg Tab Ferrous 2018-05 Yes [id number] 1{tbl} Take 1 [facility] Fumarate-Fo 1-13 tablet by ity of lic Acid 00:00: mouth [place] (HEMATINIC/ 00 daily. Medica l FOLIC ACID) Branch 324 mg (106 mg iron)-1 mg Tab Ferrous 2018-05 Yes [id number] 1{tbl} Take 1 [facility] Fumarate-Fo 1-13 tablet by ity of lic Acid 00:00: mouth [place] (HEMATINIC/ 00 daily. Medica l FOLIC ACID) Branch 324 mg (106 mg iron)-1 mg Tab Ferrous 2018-05 Yes [id number] 1{tbl} Take 1 [facility] Fumarate-Fo 1-13 tablet by ity of lic Acid 00:00: mouth [place] (HEMATINIC/ 00 daily. Medica l FOLIC ACID) Branch 324 mg (106 mg iron)-1 mg Tab Ferrous 2018-05 Yes [id number] 1{tbl} Take 1 [facility] Fumarate-Fo 1-13 tablet by ity of lic Acid 00:00: mouth [place] (HEMATINIC/ 00 daily. Medica l FOLIC ACID) Branch 324 mg (106 mg iron)-1 mg Tab Ferrous 2018-05 Yes [id number] 1{tbl} Take 1 [facility] Fumarate-Fo 1-13 tablet by ity of lic Acid 00:00: mouth [place] (HEMATINIC/ 00 daily. Medica l FOLIC ACID) Branch 324 mg (106 mg iron)-1 mg Tab Ferrous 2018-05 Yes [id number] 1{tbl} Take 1 [facility] Fumarate-Fo 1-13 tablet by ity of lic Acid 00:00: mouth [place] (HEMATINIC/ 00 daily. Medica l FOLIC ACID) Branch 324 mg (106 mg iron)-1 mg Tab Ferrous 2018-05 Yes [id number] 1{tbl} Take 1 [facility] Fumarate-Fo 1-13 tablet by ity of lic Acid 00:00: mouth [place] (HEMATINIC/ 00 daily. Medica l FOLIC ACID) Branch 324 mg (106 mg iron)-1 mg Tab Ferrous 2018-05 Yes [id number] 1{tbl} Take 1 [facility] Fumarate-Fo 1-13 tablet by ity of lic Acid 00:00: mouth [place] (HEMATINIC/ 00 daily. Medica l FOLIC ACID) Branch 324 mg (106 mg iron)-1 mg Tab Ferrous 2018-05 Yes [id number] 1{tbl} Take 1 [facility] Fumarate-Fo 1-13 tablet by ity of lic Acid 00:00: mouth [place] (HEMATINIC/ 00 daily. Medica l FOLIC ACID) Branch 324 mg (106 mg iron)-1 mg Tab Ferrous 2018-05 Yes [id number] 1{tbl} Take 1 [facility] Fumarate-Fo 1-13 tablet by ity of lic Acid 00:00: mouth [place] (HEMATINIC/ 00 daily. Medica l FOLIC ACID) Branch 324 mg (106 mg iron)-1 mg Tab Ferrous 2018-05 Yes [id number] 1{tbl} Take 1 [facility] Fumarate-Fo 1-13 tablet by ity of lic Acid 00:00: mouth [place] (HEMATINIC/ 00 daily. Medica l FOLIC ACID) Branch 324 mg (106 mg iron)-1 mg Tab levothyroxi 2018-05 Yes [id number] TAKE 1 [facility] ne 88 mcg 0-29 TABLET BY ity o f tablet 00:00: MOUTH ONCE [place] 00 DAILY IN Medical THE Branch MORNING levothyroxi 2018-05 Yes [id number] TAKE 1 [facility] ne 88 mcg 0-29 TABLET BY ity o f tablet 00:00: MOUTH ONCE [place] 00 DAILY IN Medical THE Branch MORNING levothyroxi 2018-05 Yes [id number] TAKE 1 [facility] ne 88 mcg 0-29 TABLET BY ity o f tablet 00:00: MOUTH ONCE [place] 00 DAILY IN [facility] levothyroxi 2018-05 Yes [id number] TAKE 1 [facility] ne 88 mcg 0-29 TABLET BY ity o f tablet 00:00: MOUTH ONCE [place] 00 DAILY IN [facility] levothyroxi 2018-05 Yes [id number] TAKE 1 [facility] ne 88 mcg 0-29 TABLET BY ity o f tablet 00:00: MOUTH ONCE [place] 00 DAILY IN [facility] levothyroxi 2018-05 Yes [id number] TAKE 1 [facility] ne 88 mcg 0-29 TABLET BY ity o f tablet 00:00: MOUTH ONCE [place] 00 DAILY IN [facility] levothyroxi 2018-05 Yes [id number] TAKE 1 [facility] ne 88 mcg 0-29 TABLET BY ity o f tablet 00:00: MOUTH ONCE [place] 00 DAILY IN [facility] levothyroxi 2018-05 Yes [id number] TAKE 1 [facility] ne 88 mcg 0-29 TABLET BY ity o f tablet 00:00: MOUTH ONCE [place] 00 DAILY IN [facility] levothyroxi 2018-05 Yes [id number] TAKE 1 [facility] ne 88 mcg 0-29 TABLET BY ity o f tablet 00:00: MOUTH ONCE [place] 00 DAILY IN [facility] levothyroxi 2018-05 Yes [id number] TAKE 1 [facility] ne 88 mcg 0-29 TABLET BY ity o f tablet 00:00: MOUTH ONCE [place] 00 DAILY IN [facility] levothyroxi 2018-05 Yes [id number] TAKE 1 [facility] ne 88 mcg 0-29 TABLET BY ity o f tablet 00:00: MOUTH ONCE [place] 00 DAILY IN [facility] levothyroxi 2018-05 2020- No [id number] TAKE 1 [facility] ne 88 mcg 0-29 04-10 TABLET BY ity of tablet 00:00: 00:00 [place]CE [place] DAILY [place] [facility] Cholecalcif 2018-05 Yes 1000U Take 1,000 [facility] colette, 0-09 Units by ity of Vitamin D3, 18:44: mouth [place] (VITAMIN 55 every Medical D3) 1,000 morning. [facility] unit capsule Cholecalcif 2018-05 Yes 1000U Take 1,000 [facility] colette, 0-09 Units by ity of Vitamin D3, 18:44: mouth [place] (VITAMIN 55 every Medical D3) 1,000 morning. [facility] unit capsule Cholecalcif 2018-05 Yes 1000U Take 1,000 [facility] colette, 0-09 Units by ity of Vitamin D3, 18:44: mouth [place] (VITAMIN 55 every Medical D3) 1,000 morning. Branch unit capsule Cholecalcif 2019- Yes 1000U Take 1,000 [facility] colette, 0-09 Units by ity of Vitamin D3, 18:44: mouth [place] (VITAMIN 55 every Medical D3) 1,000 morning. Branch unit capsule Cholecalcif 20190 Yes 1000U Take 1,000 [facility] colette, 5-20 Units by ity of Vitamin D3, 18:10: mouth [place] (VITAMIN 39 every Medical D3) 1,000 morning. Branch unit capsule sulfamethox 2019- Yes [id number] 1{tbl} Take 1 [facility] azole-trime 5-20 tablet by ity of thoprim 00:00: mouth 2 (BACTRIM 00 (two) Medical DS) 800-160 times Branch mg per daily. tablet levothyroxi Yes [id number] 88ug Take 1 [facility] ne 88 mcg 4-18 tablet by ity o f tablet 00:00: mouth 00 every Medical morning. Branch naproxen Yes [id number] 375mg Take 1 [facility] 375 mg EC 3-11 tablet by ity o f tablet 00:00: mouth (two) Medical times Branch daily as needed (with meals). naproxen Yes [id number] 375mg Take 1 [facility] 375 mg EC 3-11 tablet by ity o f tablet 00:00: mouth (two) Medical times Branch daily as needed (with meals). naproxen Yes [id number] 375mg Take 1 [facility] 375 mg EC 3-11 tablet by ity o f tablet 00:00: mouth 2 (two) Medical times Branch daily as needed (with meals). naproxen Yes [id number] 375mg Take 1 [facility] 375 mg EC 3-11 tablet by ity o f tablet 00:00: mouth (two) Medical times Branch daily as needed (with meals). naproxen Yes [id number] 375mg Take 1 [facility] 375 mg EC 3-11 tablet by ity o f tablet 00:00: mouth (two) Medical times Branch daily as needed (with meals). naproxen 2020- No [id number] 375mg Take 1 U nivers 375 mg EC 07-12 tablet by ity of tablet 00:00: 00:00 mouth 2 00 :00 (two) Medical times Branch daily as needed (with meals). GALANTAMINE 2017-05 Yes TAKE 1 [facility] ers 4 mg tablet 06-30 TABLET BY ity of 00:00: MOUTH 00 TWICE Medical DAILY Branch GALANTAMINE 2017-05- No TAKE 1 [facility] vers 4 mg tablet 06-30 TABLET BY it y of 00:00: 00:00 MOUTH [place] 00 :00 TWICE Medical DAILY Branch GALANTAMINE 2017-05- No TAKE 1 [facility] vers 4 mg tablet 06-30 TABLET BY it y of 00:00: 00:00 MOUTH [place] 00 :00 TWICE Medical DAILY Branch hydrocortis 2017-05 Yes Insert [facility] ers one 2-05 into ity of (PROCTOSOL 00:00: rectum 2 [place] [facility]) 2.5 % 00 (two) Medical rectal times Branch cream daily. hydrocortis 2017-05 Yes Insert [facility] ers one 2-05 into ity of (PROCTOSOL 00:00: rectum 2 [place] [facility]) 2.5 % 00 (two) Medical rectal times Branch cream daily. hydrocortis 2017-05 Yes Insert [facility] ers one 2-05 into ity of (PROCTOSOL 00:00: rectum 2 [place] [facility]) 2.5 % 00 (two) Medical rectal times Branch cream daily. hydrocortis 2017-05 Yes Insert [facility] ers one 2-05 into ity of (PROCTOSOL 00:00: rectum 2 [place] [facility]) 2.5 % 00 (two) Medical rectal times Branch cream daily. hydrocortis 2017-05 Yes Insert [facility] ers one 2-05 into ity of (PROCTOSOL 00:00: rectum 2 [place] [facility]) 2.5 % 00 (two) Medical rectal times Branch cream daily. hydrocortis 2017-05 Yes Insert [facility] ers one 2-05 into ity of (PROCTOSOL 00:00: rectum 2 [place] [facility]) 2.5 % 00 (two) Medical rectal times Branch cream daily. hydrocortis 2017-05 Yes Insert [facility] ers one 2-05 into ity of (PROCTOSOL 00:00: rectum 2 [place] [facility]) 2.5 % 00 (two) Medical rectal times Branch cream daily. hydrocortis 2017-05 Yes Insert [facility] ers one 2-05 into ity of (PROCTOSOL 00:00: rectum 2 [place] [facility]) 2.5 % 00 (two) Medical rectal times Branch cream daily. hydrocortis 2017-05 Yes Insert [facility] ers one 2-05 into ity of (PROCTOSOL 00:00: rectum 2 [place] [facility]) 2.5 % 00 (two) Medical rectal times Branch cream daily. hydrocortis 2017-05 Yes Insert [facility] ers one 2-05 into ity of (PROCTOSOL 00:00: rectum 2 [place] [facility]) 2.5 % 00 (two) Medical rectal times Branch cream daily. hydrocortis 2017-05 Yes Insert [facility] ers one 2-05 into ity of (PROCTOSOL 00:00: rectum 2 [place] [facility]) 2.5 % 00 (two) Medical rectal times Branch cream daily. hydrocortis 2017-05 Yes Insert [facility] ers one 2-05 into ity of (PROCTOSOL 00:00: rectum 2 [place] [facility]) 2.5 % 00 (two) Medical rectal times Branch cream daily. hydrocortis 2017-05 2020- No Insert [facility] vers one 2-05 04-09 into ity of (PROCTOSOL 00:00: 00:00 rectum 2 [place] [facility]) 2.5 % 00 :00 (two) Medical rectal times Branch cream daily. rivaroxaban 2017-0 Yes 15mg Take 1 [facility] ers 15 mg 9-17 tablet by ity of tablet 00:00: mouth [place] 00 daily. Medical Branch rivaroxaban 2018-0 Yes 15mg Take 1 [facility] ers 15 mg 9-17 tablet by ity of tablet 00:00: mouth [place] 00 daily. Medical Branch rivaroxaban 2018-0 Yes 15mg Take 1 [facility] ers 15 mg 9-17 tablet by ity of tablet 00:00: mouth [place] 00 daily. Medical Branch rivaroxaban 2018-0 Yes 15mg Take 1 [facility] ers 15 mg 9-17 tablet by ity of tablet 00:00: mouth [place] 00 daily. [facility] Branch rivaroxaban 2018-0 Yes 15mg Take 1 Univ ers 15 mg 9-17 tablet by ity of tablet 00:00: mouth [place] 00 daily. Medical Branch rivaroxaban 2018-0 Yes 15mg Take 1 Univ ers 15 mg 9-17 tablet by ity of tablet 00:00: mouth [place] 00 daily. Medical Branch rivaroxaban 2018-0 Yes 15mg Take 1 [facility] ers 15 mg 9-17 tablet by ity of tablet 00:00: mouth [place] 00 daily. Medical Branch rivaroxaban 2018-0 Yes 15mg Take 1 [facility] ers 15 mg 9-17 tablet by ity of tablet 00:00: mouth [place] 00 daily. Medical Branch rivaroxaban 2018-0 Yes 15mg Take 1 [facility] ers 15 mg 9-17 tablet by ity of tablet 00:00: mouth [place] 00 daily. Medical Branch rivaroxaban 2018-0 Yes 15mg Take 1 [facility] ers 15 mg 9-17 tablet by ity of tablet 00:00: mouth [place] 00 daily. Medical Branch rivaroxaban 2018-0 Yes 15mg Take 1 Univ ers 15 mg 9-17 tablet by ity of tablet 00:00: mouth [place] 00 daily. Medical Branch rivaroxaban 2017-0 Yes 15mg Take 1 Univ ers 15 mg 9-17 tablet by ity of tablet 00:00: mouth [place] 00 daily. Medical Branch rivaroxaban 2018-0 2020- No 15mg Take 1 Uni vers 15 mg 9-17 04-10 tablet by ity of tablet 00:00: 00:00 mouth [place] 00 :00 daily. Medical Branch HEMATINIC/F 2017- Yes [id number] TAKE 1 [facility] OLIC ACID 9-14 TABLET BY ity o f 324 mg (106 00:00: MOUTH [place] mg iron)-1 00 EVERY DAY Medi caridad mg Tab Branch mupirocin 2 Yes [id number] Apply to Univers % ointment 8-29 area(s) 3 ity of 00:00: (three) [place] 00 times Medical daily. Branch mupirocin 2 Yes [id number] Apply to Univers % ointment 8-29 area(s) 3 ity of 00:00: (three) [place] 00 times Medical daily. Branch mupirocin 2 Yes [id number] Apply to Univers % ointment 8-29 area(s) 3 ity of 00:00: (three) [place] 00 times Medical daily. Branch mupirocin 2 2017- Yes [id number] Apply to Univers % ointment 8-29 area(s) 3 ity of 00:00: (three) [place] 00 times Medical daily. Branch mupirocin 2 2018-0 Yes [id number] Apply to Univers % ointment 8-29 area(s) 3 ity of 00:00: (three) [place] 00 times Medical daily. Branch mupirocin 2 2018-0 Yes [id number] Apply to Univers % ointment 8-29 area(s) 3 ity of 00:00: (three) [place] 00 times Medical daily. Branch mupirocin 2 2018-0 Yes [id number] Apply to Univers % ointment 8-29 area(s) 3 ity of 00:00: (three) [place] 00 times Medical daily. Branch mupirocin 2 2018-0 Yes [id number] Apply to Univers % ointment 8-29 area(s) 3 ity of 00:00: (three) [place] 00 times Medical daily. Branch mupirocin 2 2018-0 Yes [id number] Apply to Univers % ointment 8-29 area(s) 3 ity of 00:00: (three) [place] 00 times Medical daily. Branch mupirocin 2 2018-0 Yes [id number] Apply to Univers % ointment 8-29 area(s) 3 ity of 00:00: (three) [place] 00 times Medical daily. Branch mupirocin 2 2018-0 Yes [id number] Apply to Univers % ointment 8-29 area(s) 3 ity of 00:00: (three) [place] 00 times Medical daily. Branch mupirocin 2 2018-0 Yes [id number] Apply to Univers % ointment 8-29 area(s) 3 ity of 00:00: (three) [place] 00 times Medical daily. Branch mupirocin 2 2018-0 Yes [id number] Apply to Univers % ointment 8-29 area(s) 3 ity of 00:00: (three) [place] 00 times Medical daily. Branch mupirocin 2 2018-0 Yes [id number] Apply to Univers % ointment 8-29 area(s) 3 ity of 00:00: (three) [place] 00 times Medical daily. Branch mupirocin 2 2018-0 Yes [id number] Apply to Univers % ointment 8-29 area(s) 3 ity of 00:00: (three) [place] 00 times Medical daily. Branch mupirocin 2 2018-0 Yes [id number] Apply to Univers % ointment 8- area(s) 3 ity of 00:00: (three) [place] 00 times Medical daily. Branch traMADOL 2018-0 Yes 50mg Take 1 Univers (ULTRAM) 50 8-26 tablet by ity of mg tablet 00:00: mouth [place] 00 every 6 Medical (six) Branch hours as needed for Pain (scale 4-6). traMADOL 2018-0 Yes 50mg Take 1 [facility] (ULTRAM) 50 8-26 tablet by ity of mg tablet 00:00: mouth [place] 00 every 6 Medical (six) Branch hours as needed for Pain (scale 4-6). traMADOL 2018-0 Yes 50mg Take 1 [facility] (ULTRAM) 50 8-26 tablet by ity of mg tablet 00:00: mouth [place] 00 every 6 Medical (six) Branch hours as needed for Pain (scale 4-6). traMADOL 2018-0 Yes 50mg Take 1 [facility] (ULTRAM) 50 8-26 tablet by ity of mg tablet 00:00: mouth [place] 00 every 6 Medical (six) Branch hours as needed for Pain (scale 4-6). traMADOL 2018-0 Yes 50mg Take 1 [facility] (ULTRAM) 50 8-26 tablet by ity of mg tablet 00:00: mouth [place] 00 every 6 Medical (six) Branch hours as needed for Pain (scale 4-6). traMADOL 2018-0 Yes 50mg Take 1 [facility] (ULTRAM) 50 8-26 tablet by ity of mg tablet 00:00: mouth [place] 00 every 6 Medical (six) Branch hours as needed for Pain (scale 4-6). traMADOL 2018-0 Yes 50mg Take 1 [facility] (ULTRAM) 50 8-26 tablet by ity of mg tablet 00:00: mouth [place] 00 every 6 Medical (six) Branch hours as needed for Pain (scale 4-6). traMADOL 2018-0 Yes 50mg Take 1 [facility] (ULTRAM) 50 8-26 tablet by ity of mg tablet 00:00: mouth [place] 00 every 6 Medical (six) Branch hours as needed for Pain (scale 4-6). traMADOL 2018-0 Yes 50mg Take 1 Univers (ULTRAM) 50 8-26 tablet by ity of mg tablet 00:00: mouth [place] 00 every 6 Medical (six) Branch hours as needed for Pain (scale 4-6). traMADOL 2018-0 Yes 50mg Take 1 [facility] (ULTRAM) 50 8-26 tablet by ity of mg tablet 00:00: mouth [place] 00 every 6 Medical (six) Branch hours as needed for Pain (scale 4-6). traMADOL 2018-0 Yes 50mg Take 1 [facility] (ULTRAM) 50 8-26 tablet by ity of mg tablet 00:00: mouth [place] 00 every 6 Medical (six) Branch hours as needed for Pain (scale 4-6). traMADOL 2018-0 Yes 50mg Take 1 [facility] (ULTRAM) 50 8-26 tablet by ity of mg tablet 00:00: mouth [place] 00 every 6 Medical (six) Branch hours as needed for Pain (scale 4-6). traMADOL 2018-0 Yes 50mg Take 1 [facility] (ULTRAM) 50 8-26 tablet by ity of mg tablet 00:00: mouth [place] 00 every 6 Medical (six) Branch hours as needed for Pain (scale 4-6). traMADOL 2018-0 Yes 50mg Take 1 [facility] (ULTRAM) 50 8-26 tablet by ity of mg tablet 00:00: mouth [place] 00 every 6 Medical (six) Branch hours as needed for Pain (scale 4-6). traMADOL 2018-0 Yes 50mg Take 1 [facility] (ULTRAM) 50 8-26 tablet by ity of mg tablet 00:00: mouth [place] 00 every 6 Medical (six) Branch hours as needed for Pain (scale 4-6). traMADOL 2018-0 Yes 50mg Take 1 [facility] (ULTRAM) 50 8-26 tablet by ity of mg tablet 00:00: mouth [place] 00 every 6 Medical (six) Branch hours as needed for Pain (scale 4-6). ciclopirox 2016- Yes [id number] Apply to Univers 8 % 0-04 area(s) at ity of solution 00:00: bedtime. Apply to Medical dry Branch nail/surro unding skin. Reapply nightly. Remove with alcohol, trim/file nails on day 7. repeat ciclopirox 2016- Yes [id number] Apply to Univers 8 % 0-04 area(s) at ity of solution 00:00: bedtime. Apply to Medical dry Branch nail/surro unding skin. Reapply nightly. Remove with alcohol, trim/file nails on day 7. repeat ciclopirox 2016-05 Yes [id number] Apply to Univers 8 % 0-04 area(s) at ity of solution 00:00: bedtime. [place] 00 Apply to Medical dry Branch nail/surro unding skin. Reapply nightly. Remove with alcohol, trim/file nails on day 7. repeat ciclopirox 2016-05 Yes [id number] Apply to Univers 8 % 0-04 area(s) at ity of solution 00:00: bedtime. [place] 00 Apply to Medical dry Branch nail/surro unding skin. Reapply nightly. Remove with alcohol, trim/file nails on day 7. repeat ciclopirox 2016-05 Yes [id number] Apply to Univers 8 % 0-04 area(s) at ity of solution 00:00: bedtime. Apply to Medical dry Branch nail/surro unding skin. Reapply nightly. Remove with alcohol, trim/file nails on day 7. repeat ciclopirox 2016-05 Yes [id number] Apply to Univers 8 % 0-04 area(s) at ity of solution 00:00: bedtime. Apply to Medical dry Branch nail/surro unding skin. Reapply nightly. Remove with alcohol, trim/file nails on day 7. repeat ciclopirox 2016-05 Yes [id number] Apply to Univers 8 % 0-04 area(s) at ity of solution 00:00: bedtime. Apply to Medical dry Branch nail/surro unding skin. Reapply nightly. Remove with alcohol, trim/file nails on day 7. repeat ciclopirox 2016-05 Yes [id number] Apply to Univers 8 % 0-04 area(s) at ity of solution 00:00: bedtime. [place] 00 Apply to Medical dry Branch nail/surro unding skin. Reapply nightly. Remove with alcohol, trim/file nails on day 7. repeat ciclopirox 2016-05 Yes [id number] Apply to Univers 8 % 0-04 area(s) at ity of solution 00:00: bedtime. 00 Apply to Medical dry Branch nail/surro unding skin. Reapply nightly. Remove with alcohol, trim/file nails on day 7. repeat ciclopirox 2016-05 Yes [id number] Apply to Univers 8 % 0-04 area(s) at ity of solution 00:00: bedtime. [place] 00 Apply to Medical dry Branch nail/surro unding skin. Reapply nightly. Remove with alcohol, trim/file nails on day 7. repeat ciclopirox 2016-05 Yes [id number] Apply to Univers 8 % 0-04 area(s) at ity of solution 00:00: bedtime. [place] 00 Apply to Medical dry Branch nail/surro unding skin. Reapply nightly. Remove with alcohol, trim/file nails on day 7. repeat ciclopirox 2016-05 Yes [id number] Apply to Univers 8 % 0-04 area(s) at ity of solution 00:00: bedtime. [place] 00 Apply to Medical dry Branch nail/surro unding skin. Reapply nightly. Remove with alcohol, trim/file nails on day 7. repeat ciclopirox 2016-05 2020- No [id number] Apply to Univers 8 % 0-04 04-09 area(s) at ity of solution 00:00: 00:00 [place] :[place] Apply to Medical dry Branch nail/surro unding skin. Reapply nightly. Remove with alcohol, trim/file nails on day 7. repeat acetaminoph 2017 Yes 1{tbl} Take 1 Un ree en-codeine 8-09 tablet by ity of (TYLENOL-CO 00:00: mouth [place] DEINE #3) 00 every 4 Medical 300-30 mg (four) Branch tablet hours as needed for Pain (scale 4-6) or Pain (scale 7-10). acetaminoph 2017-0 Yes 1{tbl} Take 1 Un ree en-codeine 8-09 tablet by ity of (TYLENOL-CO 00:00: mouth [place] DEINE #3) 00 every 4 Medical 300-30 mg (four) Branch tablet hours as needed for Pain (scale 4-6) or Pain (scale 7-10). acetaminoph 2017- Yes 1{tbl} Take 1 Un ree en-codeine 8-09 tablet by ity of (TYLENOL-CO 00:00: mouth [place] DEINE #3) 00 every 4 Medical 300-30 mg (four) Branch tablet hours as needed for Pain (scale 4-6) or Pain (scale 7-10). acetaminoph Yes 1{tbl} Take 1 Un ree en-codeine 8-09 tablet by ity of (TYLENOL-CO 00:00: mouth [place] DEINE #3) 00 every 4 Medical 300-30 mg (four) Branch tablet hours as needed for Pain (scale 4-6) or Pain (scale 7-10). acetaminoph Yes 1{tbl} Take 1 Un re[facility] en-codeine 8-09 tablet by ity of (TYLENOL-CO 00:00: mouth [place] DEINE #3) 00 every 4 Medical 300-30 mg (four) Branch tablet hours as needed for Pain (scale 4-6) or Pain (scale 7-10). acetaminoph 2020- No 1{tbl} Take 1 U nivers en-codeine 8-09 02-23 tablet by ity of (TYLENOL-CO 00:00: 00:00 mouth [place] DEINE #3) 00 :00 every 4 Medical 300-30 mg (four) Branch tablet hours as needed for Pain (scale 4-6) or Pain (scale 7-10). lovastatin [id number] Yes 20mg Take 20 mg U nivers 20 mg 7-02 by mouth ity of tablet 00:00: daily. [address] lovastatin [id number] Yes 20mg Take 20 mg U nivers 20 mg 7-02 by mouth ity of tablet 00:00: daily. [address] lovastatin 2017-0 Yes 20mg Take 20 mg U nivers 20 mg 7-02 by mouth ity of tablet 00:00: daily. [address] lovastatin 2017-0 Yes 20mg Take 20 mg U nivers 20 mg 7-02 by mouth ity of tablet 00:00: daily. [address] lovastatin 2017-0 Yes 20mg Take 20 mg U nivers 20 mg 7-02 by mouth ity of tablet 00:00: daily. [address] lovastatin 2017-0 Yes 20mg Take 20 mg U nivers 20 mg 7-02 by mouth ity of tablet 00:00: daily. [address] lovastatin 2017-0 Yes 20mg Take 20 mg U nivers 20 mg 7-02 by mouth ity of tablet 00:00: daily. [place] [facility] lovastatin 2017-0 Yes 20mg Take 20 mg U nivers 20 mg 7-02 by mouth ity of tablet 00:00: daily. [place] [facility] lovastatin 2017-0 Yes 20mg Take 20 mg U nivers 20 mg 7-02 by mouth ity of tablet 00:00: daily. [place] [facility] lovastatin 2017-0 Yes 20mg Take 20 mg U nivers 20 mg 7-02 by mouth ity of tablet 00:00: daily. [place] [facility] lovastatin 2017-0 Yes 20mg Take 20 mg U nivers 20 mg 7-02 by mouth ity of tablet 00:00: daily. [place] [facility] lovastatin 2017-0 Yes 20mg Take 20 mg U nivers 20 mg 7-02 by mouth ity of tablet 00:00: daily. [place] [facility] lovastatin 2016-0 Yes 20mg Take 20 mg U nivers 20 mg 7-02 by mouth ity of tablet 00:00: daily. [place] [facility] lovastatin 2016-0 Yes 20mg Take 20 mg U nivers 20 mg 7-02 by mouth ity of tablet 00:00: daily. [place] [facility] lovastatin 2017-0 Yes 20mg Take 20 mg U nivers 20 mg 7-02 by mouth ity of tablet 00:00: daily. [place] [facility] lovastatin 2017-0 Yes 20mg Take 20 mg U nivers 20 mg 7-02 by mouth ity of tablet 00:00: daily. [place] [facility] carvedilol Yes 37.5mg Take 37.5 Univers (COREG) 25 3-03 mg by ity of mg tablet 00:00: mouth 2 [place] (two) Medical times Ava daily with meals. digoxin Yes 125ug Take 125 Unive rs (LANOXIN) 3-03 mcg by ity of 125 mcg 00:00: mouth [place] tablet 00 daily. [facility] carvedilol 0 Yes 37.5mg Take 37.5 [facility] (COREG) 25 3-03 mg by ity of mg tablet 00:00: mouth 2 [place] (two) Medical times Ava daily with meals. digoxin 0 Yes 125ug Take 125 Unive rs (LANOXIN) 3-03 mcg by ity of 125 mcg 00:00: mouth [place] tablet 00 daily. Medical Branch carvedilol Yes 37.5mg Take 37.5 [facility] (COREG) 25 3-03 mg by ity of mg tablet 00:00: mouth 2 [place] 00 (two) Medical times Ava daily with meals. digoxin Yes 125ug Take 125 Unive rs (LANOXIN) 3-03 mcg by ity of 125 mcg 00:00: mouth [place] tablet 00 daily. Medical Branch carvedilol Yes 37.5mg Take 37.5 [facility] (COREG) 25 3-03 mg by ity of mg tablet 00:00: mouth 2 [place] 00 (two) Medical times Branch daily with meals. digoxin Yes 125ug Take 125 Unive rs (LANOXIN) 3-03 mcg by ity of 125 mcg 00:00: mouth [place] tablet 00 daily. Medical Branch carvedilol Yes 37.5mg Take 37.5 [facility] (COREG) 25 3-03 mg by ity of mg tablet 00:00: mouth 2 [place] (two) Medical times Ava daily with meals. digoxin Yes 125ug Take 125 Unive rs (LANOXIN) 3-03 mcg by ity of 125 mcg 00:00: mouth [place] tablet 00 daily. Medical Branch carvedilol 2020- No 37.5mg Take 37.5 [facility] (COREG) 25 3-03 02-23 mg by ity of mg tablet 00:00: 00[place] ([place] Medical times Ava daily with meals. digoxin 2020- No 125ug Take 125 Univ ers (LANOXIN) 3-03 02-23 mcg by ity of 125 mcg 00:00: 00:00 mouth [place] tablet 00 :00 daily. Medical Branch losartan Yes 50mg Take 50 mg Uni vers (COZAAR) 50 2-25 by mouth ity of mg tablet 00:00: daily. Medical Branch losartan Yes 50mg Take 50 mg Uni vers (COZAAR) 50 2-25 by mouth ity of mg tablet 00:00: daily. Medical Branch losartan Yes 50mg Take 50 mg Uni vers (COZAAR) 50 2-25 by mouth ity of mg tablet 00:00: daily. [place] 00 Medical Branch losartan Yes 50mg Take 50 mg Uni vers (COZAAR) 50 2-25 by mouth ity of mg tablet 00:00: daily. [address] losartan Yes 50mg Take 50 mg Uni vers (COZAAR) 50 2-25 by mouth ity of mg tablet 00:00: daily. [address] losartan 2020- No 50mg Take 50 mg Un ree (COZAAR) 50 2-25 02-23 by mouth ity of mg tablet 00:00: 00:00 daily. [place] 00 :00 [facility] Er Immunizations Ordered Filled Immunization Date Status Comments [facility] e Immunization Name Name Influenza High Dose 2019-03-17 Completed Unive rsity of 00:00:00 [facility] Pneumococcal 2019-03-17 Completed University o f Polysaccharide, 00:00:00 [place] Med ical PPSV23 (PNEUMOVAX) Branch Influenza High Dose 2019-03-17 Completed Unive rsity of 00:00:00 [facility] Pneumococcal 2019-03-17 Completed University o f Polysaccharide, 00:00:00 [place] Med ical PPSV23 (PNEUMOVAX) Branch Influenza High Dose 2019-03-17 Completed Unive rsity of 00:00:00 [facility] Pneumococcal 2019-03-17 Completed University o f Polysaccharide, 00:00:00 [place] Med ical PPSV23 (PNEUMOVAX) Branch Influenza High Dose 2019-03-17 Completed Unive rsity of 00:00:00 [facility] Pneumococcal 2019-03-17 Completed University o f Polysaccharide, 00:00:00 [place] Med ical PPSV23 (PNEUMOVAX) Branch Influenza High Dose 2019-03-17 Completed Unive rsity of 00:00:00 [facility] Pneumococcal 2019-03-17 Completed University o f Polysaccharide, 00:00:00 [place] Med ical PPSV23 (PNEUMOVAX) Branch Influenza High Dose 2019-03-17 Completed Unive rsity of 00:00:00 [facility] Pneumococcal 2019-03-17 Completed University o f Polysaccharide, 00:00:00 [place] Med ical PPSV23 (PNEUMOVAX) Branch Influenza High Dose 2019-03-17 Completed Unive rsity of 00:00:00 [facility] Pneumococcal 2019-03-17 Completed University o f Polysaccharide, 00:00:00 [place] Med ical PPSV23 (PNEUMOVAX) Branch Influenza High Dose 2019-03-17 Completed Unive rsity of 00:00:00 [facility] Pneumococcal 2019-03-17 Completed University o f Polysaccharide, 00:00:00 [place] Med ical PPSV23 (PNEUMOVAX) Branch Influenza High Dose 2019-03-17 Completed Unive rsity of 00:00:00 [facility] Pneumococcal 2019-03-17 Completed University o f Polysaccharide, 00:00:00 [place] Med ical PPSV23 (PNEUMOVAX) Branch Influenza High Dose 2019-03-17 Completed Unive rsity of 00:00:00 [facility] Pneumococcal 2019-03-17 Completed University o f Polysaccharide, 00:00:00 [place] Med ical PPSV23 (PNEUMOVAX) Branch Influenza High Dose 2019-03-17 Completed Unive rsity of 00:00:00 [facility] Pneumococcal 2019-03-17 Completed University o f Polysaccharide, 00:00:00 [place] Med ical PPSV23 (PNEUMOVAX) Branch Influenza High Dose 2019-03-17 Completed Unive rsity of 00:00:00 [facility] Pneumococcal 2019-03-17 Completed University o f Polysaccharide, 00:00:00 [place] Med ical PPSV23 (PNEUMOVAX) Branch Influenza High Dose 2019-03-17 Completed Unive rsity of 00:00:00 [facility] Pneumococcal 2019-03-17 Completed University o f Polysaccharide, 00:00:00 [place] Med ical PPSV23 (PNEUMOVAX) Branch Influenza High Dose 2019-03-17 Completed Unive rsity of 00:00:00 [facility] Pneumococcal 2019-03-17 Completed University o f Polysaccharide, 00:00:00 [place] Med ical PPSV23 (PNEUMOVAX) Branch Influenza High Dose 2019-03-17 Completed Unive rsity of 00:00:00 [facility] Pneumococcal 2019-03-17 Completed University o f Polysaccharide, 00:00:00 [place] Med ical PPSV23 (PNEUMOVAX) Branch Influenza High Dose 2017-02-12 Completed Unive rsity of 00:00:00 [facility] Influenza High Dose 2017-02-12 Completed Unive rsity of 00:00:00 [facility] Influenza High Dose 2017-02-12 Completed Unive rsity of 00:00:00 [facility] Influenza High Dose 2017-02-12 Completed Unive rsity of 00:00:00 [facility] Influenza High Dose 2017-02-12 Completed Unive rsity of 00:00:00 [facility] Influenza High Dose 2017-02-12 Completed Unive rsity of 00:00:00 [facility] Influenza High Dose 2017-02-12 Completed Unive rsity of 00:00:00 [facility] Influenza High Dose 2017-02-12 Completed Unive rsity of 00:00:00 [facility] Influenza High Dose 2017-02-12 Completed Unive rsity of 00:00:00 [facility] Influenza High Dose 2017-02-12 Completed Unive rsity of 00:00:00 [facility] Influenza High Dose 2017-02-12 Completed Unive rsity of 00:00:00 [facility] Influenza High Dose 2017-02-12 Completed Unive rsity of 00:00:00 [facility] Influenza High Dose 2017-02-12 Completed Unive rsity of 00:00:00 [facility] Influenza High Dose 2017-02-12 Completed Unive rsity of 00:00:00 [facility] Influenza High Dose 2017-02-12 Completed Unive rsity of 00:00:00 [facility] Influenza High Dose 2017-02-12 Completed Unive rsity of 00:00:00 [facility] Vital Signs Vital Name Observation Time Observation Value Comments Source Systolic blood 2019-08-12 21:00:00 171 mm[Hg] Univer sity of pressure [facility] Diastolic blood 2019-08-12 21:00:00 76 mm[Hg] Unive rsity of pressure [facility] Heart rate 2019-08-12 21:00:00 87 /min [facility] Body temperature 2019-08-12 21:00:00 36.67 Maira [facility] Respiratory rate 2019-08-12 21:00:00 20 /min [facility] saturation in 2019-08-12 21:00:00 98 /min [facility] Arterial blood by [facility] Pulse oximetry Branch Body weight 2019-08-11 18:24:00 72.576 kg [facility] BMI 2019-08-11 18:24:00 28.34 kg/m2 [facility] Systolic blood 2019-08-12 21:00:00 171 mm[Hg] Univer sity of pressure [place] [facility] Diastolic blood 2019-08-12 21:00:00 76 mm[Hg] Unive rsity of pressure [place] [facility] Heart rate 2019-08-12 21:00:00 87 /min [facility] [place] [facility] Body temperature 2019-08-12 21:00:00 36.67 Maira Univ ersity of [place] [facility] Respiratory rate 2019-08-12 21:00:00 20 /min Univ ersity of [place] [facility] Oxygen saturation in 2019-08-12 21:00:00 98 /min University of Arterial blood by [place] [employer] Pulse oximetry Branch Body weight 2019-08-11 18:24:00 72.576 kg [facility] ty [facility] [place] [facility] BMI 2019-08-11 18:24:00 28.34 kg/m2 [facility] [place] [facility] Systolic blood 2019-07-24 16:00:00 179 mm[Hg] Univer sity of pressure [place] [facility] Diastolic blood 2019-07-24 16:00:00 68 mm[Hg] Unive rsity of pressure [place] [facility] Heart rate 2019-07-24 16:00:00 69 /min [facility] [place] [facility] Respiratory rate 2019-07-24 16:00:00 15 /min Univ ersity of [place] [facility] Oxygen saturation in 2019-07-24 16:00:00 98 /min University of Arterial blood by [facility] Pulse oximetry Branch Body temperature 2019-07-24 15:01:00 37.06 Maira Univ ersity of [place] [facility] Body weight 2019-07-24 15:01:00 72.576 kg [facility] [place] [facility] BMI 2019-07-24 15:01:00 28.34 kg/m2 [facility] [place] [facility] Systolic blood 2019-07-24 16:00:00 179 mm[Hg] Univer sity of pressure [place] [facility] Diastolic blood 2019-07-24 16:00:00 68 mm[Hg] Unive rsity of pressure [place] [facility] Heart rate 2019-07-24 16:00:00 69 /min [facility] [place] [facility] Respiratory rate 2019-07-24 16:00:00 15 /min Univ ersity of [place] [facility] Oxygen saturation in 2019-07-24 16:00:00 98 /min University of Arterial blood by [facility] caridad Pulse oximetry Branch Body temperature 2019-07-24 15:01:00 37.06 Maira Univ ersity of [place] [facility] Body weight 2019-07-24 15:01:00 72.576 kg Universi ty of [place] [facility] BMI 2019-07-24 15:01:00 28.34 kg/m2 Universi ty of [place] [facility] Systolic blood 2019-06-26 17:42:00 116 mm[Hg] Univer sity of pressure [place] [facility] Diastolic blood 2019-06-26 17:42:00 72 mm[Hg] Unive rsity of pressure [place] [facility] Heart rate 2019-06-26 17:42:00 77 /min Universi ty of [place] [facility] Body temperature 2019-06-26 17:42:00 36.72 Maira Univ ersity of [place] [facility] Respiratory rate 2019-06-26 17:42:00 18 /min Univ ersity of [place] [facility] Oxygen saturation in 2019-06-26 17:42:00 97 /min University of Arterial blood by [place] [employer] Pulse oximetry Branch Body height 2019-06-24 21:33:00 160 cm Universi ty of [place] [facility] Body weight 2019-06-24 21:33:00 64.819 kg Universi ty of [place] [facility] BMI 2019-06-24 21:33:00 25.31 kg/m2 Universi ty of [place] [facility] Systolic blood 2019-06-26 17:42:00 116 mm[Hg] Univer sity of pressure [place] [facility] Diastolic blood 2019-06-26 17:42:00 72 mm[Hg] Unive rsity of pressure [place] [facility] Heart rate 2019-06-26 17:42:00 77 /min Universi ty of [place] [facility] Body temperature 2019-06-26 17:42:00 36.72 Maira Univ ersity of [place] [facility] Respiratory rate 2019-06-26 17:42:00 18 /min Univ ersity of [place] [facility] Oxygen saturation in 2019-06-26 17:42:00 97 /min University of Arterial blood by [employer] caridad Pulse oximetry Branch Body height 2019-06-24 21:33:00 160 cm Universi ty of [place] [facility] Body weight 2019-06-24 21:33:00 64.819 kg Universi ty of [place] [facility] BMI 2019-06-24 21:33:00 25.31 kg/m2 Universi ty of [place] [facility] Systolic blood 2019-06-06 20:49:00 115 mm[Hg] Univer sity of pressure [facility] Diastolic blood 2019-06-06 20:49:00 70 mm[Hg] Unive rsity of pressure [facility] Heart rate 2019-06-06 20:49:00 72 /min Universi ty of [facility] Body temperature 2019-06-06 20:49:00 36.11 Maira Univ ersity of [facility] Respiratory rate 2019-06-06 20:49:00 16 /min Univ ersity of [facility] Body height 2019-06-06 20:49:00 157.5 cm Universi ty of [facility] Body weight 2019-06-06 20:49:00 63.504 kg Universi ty of [facility] BMI 2019-06-06 20:49:00 25.61 kg/m2 Universi ty of [facility] Systolic blood 2019-06-06 20:49:00 115 mm[Hg] Univer sity of pressure [facility] Diastolic blood 2019-06-06 20:49:00 70 mm[Hg] Unive rsity of pressure [facility] Heart rate 2019-06-06 20:49:00 72 /min Universi ty of [facility] Body temperature 2019-06-06 20:49:00 36.11 Maira Univ ersity of [facility] Respiratory rate 2019-06-06 20:49:00 16 /min Univ ersity of [facility] Body height 2019-06-06 20:49:00 157.5 cm Universi ty of [facility] Body weight 2019-06-06 20:49:00 63.504 kg Universi ty of [facility] BMI 2019-06-06 20:49:00 25.61 kg/m2 Universi ty [facility] [place] Procedures Procedure Date / Time Performing Clinician Source Performed EXTERNAL PROVIDER 2019-09-20 05:01:00 Doctor Unassigned, No Univ [facility] RECORDS Name Medical Branch CAROTID DUPLEX BILATERAL 2019-08-12 15:55:59 Varun Frankel [facility] BY VASCULAR LAB [facility] Er CT THORAX WO CONTRAST 2019-08-12 13:33:48 Barb Knowles sity [facility] [place] CT HEAD WO CONTRAST 2019-08-12 13:33:14 Barb Knowles Universi ty [facility] [place] TROPONIN I 2019-08-12 11:27:[address] [facility] MAGNESIUM 2019-08-12 08:49:[address] [facility] TROPONIN I 2019-08-12 08:49:[address] [facility] BASIC METABOLIC PANEL 2019-08-12 08:49:[address] [facility] (NA, K, CL, CO2, Medical Branch GLUCOSE, BUN, CREATININE, CA) CBC WITH DIFFERENTIAL 2019-08-12 08:49:00 Benson [facility] N-TERMINAL PRO-BNP 2019-08-12 08:49:00 [facility] TROPONIN I 2019-08-12 06:13:[address] [facility] PROCALCITONIN 2019-08-12 06:13:[address] [facility] CORONAVIRUS COVID-19 2019-08-12 01:36:00 Pepito Marin [facility] TESTING [facility] Er URINALYSIS 2019-08-12 01:35:00 Neda Kearney [facility] PHOSPHORUS 2019-08-12 00:24:[address] [facility] CREATINE KINASE 2019-08-12 00:24:[address] [facility] MAGNESIUM 2019-08-12 00:24:[address] [facility] TROPONIN I 2019-08-12 00:24:00 Neda Kearney [facility] THYROID STIMULATING 2019-08-12 00:24:00 [facility] HORMONE [facility] COMP. METABOLIC PANEL 2019-08-12 00:24:00 Neda Kearney [facility] ([id number]) Medical Branch CBC WITH DIFFERENTIAL 2019-08-12 00:24:00 Neda Kearney [facility] N-TERMINAL PRO-BNP 2019-08-12 00:24:00 [place] [facility] EKG-12 LEAD 2019-08-12 00:23:02 Doctor Unassigned, No [facility] Name Medical Branch XR CHEST 1 VW 2019-08-12 00:22:47 Neda Kearney [facility] EKG-12 LEAD 2019-08-12 00:11:24 Neda Kearney [facility] FL LAYR CLOS WND 2019-08-11 20:59:00 Neda Kearney [facility] TRUNK,ARM,LEG <2.[address] CERVICAL SPINE WO 2019-08-11 19:42:47 Neda Kearney [facility] CONTRAST [facility] Branch CT HEAD WO CONTRAST 2019-08-11 19:42:47 Neda Kearney [facility] CONSENT/REFUSAL FOR 2019-07-24 18:09:03 Doctor Unassigned, No [facility] Name Medical Branch XR FOOT <3 VW LEFT 2019-07-24 16:40:48 Alex Zaragoza [facility] URINALYSIS 2019-07-24 16:11:00 Alex Zaragoza [facility] CT CERVICAL SPINE WO 2019-07-24 16:02:43 Alex Zaragoza [facility] CONTRAST [facility] Branch CT HEAD WO CONTRAST 2019-07-24 16:02:43 Alex Zaragoza [facility] XR CHEST 1 VW 2019-07-24 15:39:49 Alex Zaragoza [facility] XR FOOT 3+ VW LEFT 2019-07-24 15:39:49 Alex Zaragoza [facility] TROPONIN I 2019-07-24 15:19:00 Alex Zaragoza [facility] COMP. METABOLIC PANEL 2019-07-24 15:19:00 Alex Zaragoza [facility] ([id number]) [facility] Er CBC WITH DIFFERENTIAL 2019-07-24 15:19:00 Alex Zaragoza [facility] PROTHROMBIN TIME / INR 2019-07-24 15:19:00 Alex Zaragoza [facility] ACTIVATED PARTIAL 2019-07-24 15:19:00 Alex Zaragoza [facility] EKG-12 LEAD 2019-07-24 15:14:45 Alex Zaragoza [facility] HOME HEALTH - OTHER 2019-07-11 05:01:00 Doctor Unassigned, No [facility] CBC WITH DIFFERENTIAL 2019-06-26 14:16:00 Ilya Wen [facility] BASIC METABOLIC PANEL 2019-06-26 11:47:00 Ilya Wen [facility] (NA, K, CL, CO2, Medical Branch GLUCOSE, BUN, CREATININE, CA) MAGNESIUM 2019-06-25 09:09:00 Ilya Wen [facility] TROPONIN I 2019-06-25 09:09:00 Neda Gant [facility] BASIC METABOLIC PANEL 2019-06-25 09:09:00 [facility] (NA, K, CL, CO2, Medical Branch GLUCOSE, BUN, CREATININE, CA) CBC WITH DIFFERENTIAL 2019-06-25 09:09:00 [facility] 2019-06-25 05:26:00 Neda Gant [facility] VITAMIN B12, LEVEL 2019-06-25 01:48:00 Neda Gant [facility] IRON PANEL 2019-06-25 01:48:00 Neda Gant Buffy [facility] FERRITIN SERUM 2019-06-25 00:07:00 Neda Gant [facility] TROPONIN I 2019-06-25 00:07:00 Neda Gant [facility] ECHO ROUTINE W/DOPPLER 2019-06-24 22:23:04 [facility] URINALYSIS 2019-06-24 18:21:00 Asim De La Torre [facility] XR CHEST 1 VW 2019-06-24 18:10:19 Asim De La Torre [facility] TROPONIN I 2019-06-24 17:55:00 Asim De La Torre Amee [facility] THYROID STIMULATING 2019-06-24 17:55:00 [facility] COMP. METABOLIC PANEL 2019-06-24 17:55:00 Asim De La Torre [facility] ([id number]) Medical Branch LIPID PANEL 2019-06-24 17:55:00 Neda Gant [facility] ([id number])(TOTAL Medical Branch CHOLESTEROL, TRIGLYCERIDES, HDL) CBC WITH DIFFERENTIAL 2019-06-24 17:55:00 Asim De La Torre [facility] GLYCOSYLATED HEMOGLOBIN 2019-06-24 17:55:00 Neda Gant [facility] (A1C) [facility] EKG-12 LEAD 2019-06-24 17:33:35 Asim De La Torre [facility] o f [facility] EKG-12 LEAD 2019-06-24 16:25:54 Valentina Shahid [facility] NOTICE OF PRIVACY 2019-06-24 16:04:54 Doctor Unassigned, No [facility] PRACTICES Name [facility] Er CONSENT/REFUSAL FOR 2019-06-24 16:04:37 Doctor [facility]assigned, No [facility] COGNITIVE ASSESSMENT 2019-06-06 06:01:00 Doctor Unassigned, No [facility] Encounters Start End Encounter Admission Attending Care Care Encounter Source Date/Time Date/Time Type Type Clinicians Facility Department ID 2019-09-20 2019-09-20 Orders Doctor DU [id number] Univers 00:00:00 00:00:00 Only UnassignedNEMO [id number] ity of [place] [facility] [id number] Tay [place] [phone] [place] [id number] Branch 2019-09-20 2019-09-20 Orders Doctor DU [id number] 00:00:00 00:00:00 Only UnassignedNEMO [id number] [place] [facility] [id number] [id number] 2019-08-15 2019-08-15 Telephone SOPHIA Navarro [id number] Univers 00:00:00 00:00:00 Tammy Gandhi [id number] [facility] [id number] [phone] In dical [facility] 2019-08-15 2019-08-15 Telephone Ramon [facility] 1.2.840.114 [id number] 00:00:00 00:00:00 Tammy Hiram [id number] [place] [id number] Professio [phone] [address] 2019-08-11 2019-08-12 Emergency Neda Kearney S [facility] 1.2.840.1 [id number] Univers 13:22:30 19:51:00 Pepito Marin 350.1.13. 10 ity of [place] [id number] [facility] [phone] [address] 2019-08-11 2019-08-12 Outpatient X B[facility] [id number] Univers 13:22:30 19:51:00 ADNAN ity [facility] [place] 2019-08-11 2019-08-12 Emergency Neda Kearney [facility] [id number] 13:22:30 19:51:00 Pepito Marin [id number]. 10 Barb Knowles [id number] [place] [phone] [facility] 2019-08-12 2019-08-12 Telephone Citlaly [facility] [id number] Univers 00:00:00 00:00:00 [facility] [id number] it y of [place] [id number] Tay as Professio [phone] [facility] [address] 2019-08-12 2019-08-12 Telephone Alvarado, [facility] [id number] 00:00:00 00:00:00 [facility] [id number] [place] [id number] Professio [phone] nal [facility] Office [address] 2019-07-26 2019-07-26 Refill Citlaly [facility] 1.2.840.114 [id number] Univers 00:00:00 00:00:00 [facility] [id number] it y of [place] [id number] Tay as Professio [phone] In dical [facility] 044 Ava Office [address] One 2019-07-26 2019-07-26 [facility] [id number] 00:00:00 00:00:00 [facility] [id number] [place] [id number] Professio [phone] nal [facility] Office Building One 2019-07-24 2019-07-24 Emergency Mila, [facility] [id number] Univers 10:09:32 13:42:00 Alex Gandhi 350.1.13.10 i ty [place] [id number] [place] [phone] [address] 2019-07-24 2019-07-24 Emergency X MILA, [facility] ERT [id number] Univers 10:09:32 13:42:00 ALEX ity [facility] [place] 2019-07-24 2019-07-24 Emergency Mila, [facility] [id number] 10:09:32 13:42:00 Alex Gandhi 350.1.13.10 [place] 4.2.7.2.686 [place] [id number] [id number] 2019-07-20 2019-07-20 [facility] [id number] Univers 13:15:00 13:15:00 SALAZAR [id number] ity [facility] [place] 2019-07-20 2019-07-20 Telephone [facility] 1.2.840.114 [id number] Univers 00:00:00 00:00:00 Kosta Gandhi 350.1.13.10 [place] [id number] [phone] In dical [facility] 092 [facility] 2019-07-20 2019-07-20 [facility] 1.2.840.114 [id number] 00:00:00 00:00:00 Kosta Gandhi [id number] [place] [id number] Professio [phone] nal 092 Building 2019-07-11 2019-07-11 Orders Doctor FLORIAN 1.2.840.114 [id number] Univers 00:00:00 00:00:00 Only Unassigned, NEMO 350.1.13.10 ity of [place] [facility] 4.2.7.2.686 Tay as [phone] [facility] 009 Ava 2019-07-11 2019-07-11 Orders Doctor FLORIAN 1.2.840.114 [id number] 00:00:00 00:00:00 Only Unassigned, NEMO 350.1.13.10 [place] [facility] 4.2.7.2.686 [id number] [facility] 2019-06-28 2019-06-28 Transition [place] 1.2.840.114 [id number] 00:00:00 00:00:00 of Care Senia L Johnson [id number] [place] [id number] [phone] [facility] 2019-06-28 2019-06-28 Tele[facility] [id number] 00:00:00 00:00:00 [facility] 350.1.13.10 [place] [id number] Professio [phone] nal 044 Office [address] One 2019-06-28 2019-06-28 Transition [place] 1.2.840.114 [id number] Univers 00:00:00 00:00:00 of Care Senia L Johnson 350.1.13.10 i ty of [place] 4[place].2.[place] [phone] [facility] 403 Ava 2019-06-28 2019-06-28 Telephone [facility] [id number] Univers 00:00:00 00:00:00 [facility] 350.1.13.10 it y of [place] [id number] Tay as Professio [phone] In dical [facility] 044 Branch Office [address] One 2019-06-24 2019-06-26 Emergency Britt, K Amee [facility] 1.2.840. 114 [id number] 10:14:00 13:15:00 Ilya Wen 350.1.13.10 [place] 4.2.7.2.686 [place] [phone] [facility] 2019-06-24 2019-06-26 Emergency Asim De La Torre [facility] 1.2.840. 114 [id number] Univers 10:14:00 13:15:00 Ilya Wen 350.1.13.10 ity [place] [id number] [phone] [address] 2019-06-24 2019-06-26 Outpatient X CAROLYNE [facility] [id number] Univers 10:14:00 13:15:00 ILYA daniels [facility] [place] 2019-06-06 2019-06-06 Intake Manager 2, Adc Lab [facility] 1.2.840.114 [id number] Univers 15:55:30 16:10:30 Visit Kosta Maldonado 350.1.13 .10 [place].2.[place] [phone] In dical nal 353 [facility] 2019-06-06 2019-06-06 Office [facility] 1.2.840.114 [id number] 14:22:34 15:53:57 Visit Kosta Gandhi 350.1.13.10 [place] 4.2.7.2.686 Professio [phone] [address] 2019-06-06 2019-06-06 Office [facility] 1.2.840.114 [id number] [facility] [place] [facility] 14:22:34 15:53:57 Visit [place] Asa Gandhi 350.1.13.10 [place] [phone] In dical nal [address] [place] [address] 2019-06-06 2019-06-06 Orders Doctor DU 1.2.840.114 [id number] 00:00:00 00:00:00 Only Unassigned, NEMO 350.1.13.10 [facility] 4.2.7.2.686 [phone] [id number] 2019-06-06 2019-06-06 Orders Doctor FLORIAN 1.2.840.114 [id number] Univers 00:00:00 00:00:00 Only Unassigned, NEMO 350.1.13.10 ity of [place] [facility] 4.2.7.2.686 Tay as [phone] [facility] [address] 2019-01-21 2019-01-21 Refjennifer Alvarado [facility] 1.2.840.114 [id number] Univers 00:00:00 00:00:00 [facility] 350.1.13.10 it y of [place] 4.2.7.2.686 Tay as Hans [phone] In dical nal [address] One Results Test Description Test Time Test Results Result Source Comments Comments CT THORAX WO 2019-08-03 1. Type IV University o f CONTRAST [address] [facility] 14:53:54 with herniation of Branch stomach small bowel aswell as part of the transverse colon through the hernia defect. This hasresulted in atelectasis of the left lower lung. EXAM: CT scan of the chest without contrast HISTORY: ?Dyspnea, chronic, neg or nondiagnostic xray Shortness of breathleft opacity; TECHNIQUE:3 mm axial images are obtained from lung apices to the adrenalglands without intravenous contrast. Sagittal and coronal reformation iscarried out. COMPARISON: Chest x-ray from 08/11/2019 Radiation Dose: DLP of 256 mGy-cm. FINDINGS:The examination is somewhat limited in quality secondary torespiratory motion. Mild centrilobular emphysematous changes are seen.Areas of atelectasis are seen involving the left lower lobe. No focalconsolidation is identified. The central airway appears to be normal. Mild mucous plugging is seeninvolving the left lower lobe bronchi. No pleural effusion is seen. Mild pleural thickening is seen involving thelung bases. A calcified pleural plaque is seen in the right lower lobe. Heart size is normal. Scattered coronary artery calcifications are seen. Nopericardial effusion is noted. Classic three-vessel arch anatomy is seen.Thoracic aorta is significantly tortuous. Pulmonary artery appears to benormal in size. No enlarged lymph nodes are seen in the mediastinum. A large hiatal hernia is seen with herniation of most of the stomach, smallbowel and transverse colon. The adrenal glands are normal. A well-circumscribed low-density lesion ispartially visualized in the left kidney consistent with a cyst. Gallbladderis removed. Changes of spondylosis are seen in the thoracic spine. [facility], Radiant Results Inft User - 08/12/2019 9:55 AM CDTEXAM: CT scan of the chest without contrastHISTORY: Dyspnea, chronic, neg or nondiagnostic xray Shortness of breathleft opacity;TECHNIQUE:3 mm axial images are obtained from lung apices to the adrenalglands without intravenous contrast. Sagittal and coronal reformation iscarried out.COMPARISON: Chest x-ray from 08/11/2019Radiation Dose: DLP of 256 mGy-cm. FINDINGS:The examination is somewhat limited in quality secondary torespiratory motion. Mild centrilobular emphysematous changes are seen.Areas of atelectasis are seen involving the left lower lobe. No focalconsolidation is identified.The central airway appears to be normal. Mild mucous plugging is seeninvolving the left lower lobe bronchi.No pleural effusion is seen. Mild pleural thickening is seen involving thelung bases. A calcified pleural plaque is seen in the right lower lobe.Heart size is normal. Scattered coronary artery calcifications are seen. Nopericardial effusion is noted. Classic three-vessel arch anatomy is seen.Thoracic aorta is significantly tortuous. Pulmonary artery appears to benormal in size.No enlarged lymph nodes are seen in the mediastinum.A large hiatal hernia is seen with herniation of most of the stomach, smallbowel and transverse colon.The adrenal glands are normal. A well-circumscribed low-density lesion ispartially visualized in the left kidney consistent with a cyst. Gallbladderis removed.Changes of spondylosis are seen in the thoracic spine.IMPRESSION1. 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 This hasresulted in atelectasis of the left lower lung. CT HEAD WO 2019-08- Large scalp hematoma Uni versity of CONTRAST 0 along the vertex on [facility] 14:25:11 the right with Branch interval decreasein size in comparison to the prior exam currently measuring 1.3 cm inthickness and 4.9 cm in length. A 0.4 cm hyperdense focus seen in along theskin at the site of the hematoma inferiorly and may represent foreign body,correlate with physical exam. Motion degradation inferiorly. No gross acute intracranial hemorrhage ormass effect. Preliminary Report Dictated by Resident: Jumana Mike ?MD Aline., have reviewed this study and agree with theabove report.CT HEAD WO CONTRAST HISTORY: 78-year-old female with PMH of dementia and atrial fibrillationand history of frequent falls, to be evaluated after head trauma andpossible convulsions. COMPARISON: CT head without contrast 08/11/2019 TECHNIQUE: ?Noncontrast CT imaging of the head was performed and coronaland sagittal reconstructions were obtained and reviewed. FINDINGS: Mild motion degradation inferiorly. Large scalp hematoma is noted along the vertex and to the right, hasdecreased in size from 2.1 x 4.2 x 5.6 cm (AP by TV by CC) to 1.3 x 4.4 x4.9 cm (AP by TV by CC). 4 mm hyperdensity inferior aspect of the scalphematoma in the dermis may reflect a foreign body, correlate with physicalexam. Unchanged mildly prominent lateral and third ventricles likely secondary tovolume loss. ?No ?midline shift or pathological extra-axial fluidcollection is present. The basal cisterns are unremarkable. There is no gross acute intracranial hemorrhage or significant mass effect.Scattered periventricular and deep white matter hypoattenuating foci,nonspecific, can be seen with chronic small vessel disease. Bilateral basalganglial calcifications are noted. The keen-white matter differentiation ispreserved. The mastoid air cells and paranasal air sinuses are not well evaluated dueto motion artifact. No definite calvarial fracture. [facility], Radiant Results Inft User - 08/12/2019 9:26 AM CDTCT HEAD WO CONTRASTHISTORY: 78-year-old female with PMH of dementia and atrial fibrillationand history of frequent falls, to be evaluated after head trauma andpossible convulsions.COMPARISON : CT head without contrast 08/11/2019TECHNIQUE: Noncontrast CT imaging of the head was performed and coronaland sagittal reconstructions were obtained and reviewed.FINDINGS:Mild motion degradation inferiorly. Large scalp hematoma is noted along the vertex and to the right, hasdecreased in size from 2.1 x 4.2 x 5.6 cm (AP by TV by CC) to 1.3 x 4.4 x4.9 cm (AP by TV by CC). 4 mm hyperdensity inferior aspect of the scalphematoma in the dermis may reflect a foreign body, correlate with physicalexam. Unchanged mildly prominent lateral and third ventricles likely secondary tovolume loss. No midline shift or pathological extra-axial fluidcollection is present. The basal cisterns are unremarkable.There is no gross acute intracranial hemorrhage or significant mass effect.Scattered periventricular and deep white matter hypoattenuating foci,nonspecific, can be seen with chronic small vessel disease. Bilateral basalganglial calcifications are noted. The keen-white matter differentiation ispreserved.The mastoid air cells and paranasal air sinuses are not well evaluated dueto motion artifact. No definite calvarial fracture. IMPRESSIONLarge scalp hematoma along the vertex on the right with interval decreasein size in comparison to the prior exam currently measuring 1.3 cm inthickness and 4.9 cm in length. A 0.4 cm hyperdense focus seen in along theskin at the site of the hematoma inferiorly and may represent foreign body,correlate with physical exam. Motion degradation inferiorly. No gross acute intracranial hemorrhage ormass effect. Preliminary Report Dictated by Resident: Jumana Rangel MD., have reviewed this study and agree with theabove report. TROPONIN I 2019-08-12 13:37:00 Test Item Value Reference Range Interpretation Comme nts TROPONIN I (test code = <0.012 See_Comment [Au tomated message] The [id number]) system which nerated this result tra nsmitted reference range : <=0.034 ng/mL. The refe rence range was not u sed to interpret this result as normal/abnormal . NITHIN (test code = NITHIN) Equal or Less than 0.034 ng/ml---Normal ?Note: Cardiac troponin begins to rise 3-4 hours after the onset of ischemia. Repeat in 4-6 hours if the sample was drawn within 3-4 hours of the onset of the symptom and found normal. Between 0.035 and 0.120 ng/mL--- Borderline. Questionable myocardial injury or necrosis ? ?Note: Serial measurement may be necessary to confirm or exclude the diagnosis of myocardial injury or necrosis; Clinical correlation (symptoms, EKGs, imaging studies, and others) required; Repeat in 4-6 hours if clinically indicated. ? Equal or Higher than 0.121 ng/mL---Abnormal. Myocardial Injury or Necrosis Likely ? Biotin has been reported to cause a negative bias, interpret results relative to patient's use of biotin. ? Lab Interpretation (test Normal code = 28948-4) [facility] [id number] 13:25:00 Test Item Value Reference Range Interpretation Comments TROPONIN I (test <0.012 See_Comment [Automated code = [id number]) message] The system which generated this result transmitted reference range : <=0.034 ng/mL. The reference range was not used to interpr et this result as normal/abnormal . NITHIN (test code = Equal or Less than NITHIN) 0.034 ng/ml---Normal ?Note: Cardiac troponin begins to rise 3-4 hours after the onset of ischemia. Repeat in 4-6 hours if the sample was drawn within 3-4 hours of the onset of the symptom and found normal. Between 0.035 and 0.120 ng/mL--- Borderline. Questionable myocardial injury or necrosis ? ?Note: Serial measurement may be necessary to confirm or exclude the diagnosis of myocardial injury or necrosis; Clinical correlation (symptoms, EKGs, imaging studies, and others) required; Repeat in 4-6 hours if clinically indicated. ? Equal or Higher than 0.121 ng/mL---Abnormal. Myocardial Injury or Necrosis Likely ? Biotin has been reported to cause a negative bias, interpret results relative to patient's use of biotin. ? Lab Interpretation Normal (test code = 44085-8) [facility]ONIN2020-04-10 10:11:00 Test Item Value Reference Range Interpretation Comments Procalcitonin (test 0.02 ng/mL <0.07 code = 4532356978) NITHIN (test code = NITHIN) INTERPRETATION OF PROCALCITONIN RESULTS IN ADULTS >= 18 YEARS OF AGE Initiation and discontinuation of antibiotics on patients with suspected or confirmed Lower Respiratory Tract Infection in Adults >= 18 years of age. + +-------- --------+ + -----+|Procalcitonin |Interpretation ?|Antibiotic ? ? |Considerations ? |ng/mL ? | ?|recommendation | ? + +-------- --------+ + -----+| <0.1 ? | Bacterial ? ? ?| Strongly ? ? ?| ? | ?| infection very | discouraged ? | Overruling: ? | ?| unlikely ? ? ? | ? | ? Clinically unstable ? ? ? + +-------- --------+ + ? High risk for adverse ? ? | <0.25 ?| Bacterial ? ? ?| Discouraged ? | ? outcome ? | ?| infection ? ? ?| ? | ? SEE IMPORTANT NOTE ?| ?| unlikely ? ? ? | ? | ? + +-------- --------+ + -----+| >=0.25 ? ? ? | Bacterial ? ? ?| Encouraged ? ?| ? | ?| infection ? ? ?| ? | ? | ?| likely ? | ? | Consider treatment failure ?+ +------- ---------+ -+ if levels does not decrease | >0.5 ? | Bacterial ? ? ?| Strongly ? ? ?| appropriately ? | ?| infection very | encouraged ? ?| ? | ?| likely ? | ? | ? + +-------- --------+ + -----+ Discontinuation of antibiotics in high-acuity patients with suspected or confirmed sepsis in Adults >= 18 years of age. + +-------- --------+ + -----+|Procalcitonin |Interpretation ?|Antibiotic ? ? |Considerations ? |ng/mL ? | ?|recommendation | ? + +-------- --------+ + -----+| <0.25 ?| Bacterial ? ? ?| Strongly ? ? ?| ? | ?| infection very | discouraged ? | Overruling: ? | ?| unlikely ? ? ? | ? | ? Clinically unstable ? ? ? + +-------- --------+ + ? High risk for adverse ? ? | <0.5 or drop | Bacterial ? ? ?| Discouraged ? | ? outcome ? | >80% from ? ?| infection ? ? ?| ? | ? SEE IMPORTANT NOTE ?| highest PCT ?| unlikely ? ? ? | ? | ? | level ?| ?| ? | ? + +-------- --------+ + -----+| >=0.5 ?| Bacterial ? ? ?| Encouraged ? ?| ? | ?| infection ? ? ?| ? | ? | ?| likely ? | ? | Consider treatment failure ?+ +------- ---------+ -+ if levels does not decrease | >1.0 ? | Bacterial ? ? ?| Strongly ? ? ?| appropriately ? | ?| infection very | encouraged ? ?| ? | ?| likely ? | ? | ? + +-------- --------+ + -----+ Percentage of drop of Procalcitonin calculation for Discontinuation of antibiotics in high-acuity patients with suspected or confirmed sepsis in Adults >= 18 years of age. ? Procalcitonin highest{}-Procalcitonin current{}Delta Procalcitonin = x100% ? Procalcitonin current {} IMPORTANT NOTE: Procalcitonin may be elevated without bacterial infection by physiologic stress related to trauma, brown, chronic dialysis, metastatic cancer, surgery in the past seven days, malaria, some fungal infections, and some forms of vasculitis. The interpretation algorithm may not apply to patients with immunosuppression (equivalent of >10 mg of prednisone daily), HIV with CD4 cell count < 350 cells/mm3, active malignancy on systemic chemotherapy, solid organ transplant or hematopoietic stem cell transplantation, or hospital acquired pneumonia. Additionally, some clinical trials of procalcitonin have excluded patients with shock requiring vasopressor use, acute respiratory failure requiring mechanical ventilation, or those with known lung abscess/empyema. For further information please refer to:[email or web address] Lab Interpretation Normal (test code = 67928-4) [facility] WorthN-TERMINAL [id number] 09:56:00 Test Item Value Reference Range Interpretation Comments NT-proBNP (test code 774 pg/mL See_Comment H [Autom ated = 9590157640) message] The system which generated this result transmitted reference range : <=450. The reference range was not used to interpret this result as normal/abnormal . NITHIN (test code = NITHIN) Biotin has been reported to cause a negative bias, interpret results relative to patient's use of biotin. Lab Interpretation Abnormal (test code = 47192-0) [facility] METABOLIC PANEL (NA, K, CL, CO2, GLUCOSE, BUN, CREATININE, CA)2019-08-12 09:47:00 Test Item Value Reference Range Interpretation Comments NA (test code = 137 mmol/L 135-145 0462949507) K (test code = 3.5 mmol/L 3.5-5 1088183003) CL (test code = 107 mmol/L 98-108 4541497227) CO2 TOTAL (test code = 25 mmol/L 23-31 3099814147) AGAP (test code = 2-16 3388104708) BUN (test code = 11 mg/dL 7-23 7282021387) GLUCOSE (test code = 94 mg/dL 70-110 8137510578) CREATININE (test code = 0.57 mg/dL 0.5-1.04 9795291540) CALCIUM (test code = 8.3 mg/dL 8.6-10.6 L 1207201787) eGFR Calculation mL/min/1.73m2 (Non-) (test code = 8281733969) eGFR Calculation mL/min/1.73m2 () (test code = 0313738733) NITHIN (test code = NITHIN) Association of Glomerular Filtration Rate (GFR) and Staging of Kidney Disease* + --+ --+ ------+| GFR (mL/min/1.73 m2) ?| With Kidney Damage ?| ?Without Kidney Damage+ --------+ --------+ +| ?>90 ?| ?Stage one ?| ? Normal ?+ ---+ ---+ -------+| ?60-89 ?| ?Stage two ?| ? Decreased GFR ? + --+ --+ ------+| ?30-59 ?| ?Stage three ?| ? Stage three ? + --+ --+ ------+| ?15-29 ?| ?Stage four ? | ? Stage four ?+ ---+ ---+ -------+| ?<15 (or dialysis) ? ?| ?Stage five ? | ? Stage five ?+ ---+ ---+ -------+ *Each stage assumes the associated GFR level has been in effect for at least three months. ?Stages 1 to 5, with or without kidney disease, indicate chronic kidney disease. Notes: Determination of stages one and two (with eGFR >59mL/min/1.73 m2) requires estimation of kidney damage for at least three months as defined by structural or functional abnormalities of the kidney, manifested by either:Pathological abnormalities or Markers of kidney damage (including abnormalities in the composition of the blood or urine or abnormalities in imaging tests). Lab Interpretation Abnormal (test code = 74039-7) [facility]2020-04-10 09:47:00 Test Item Value Reference Range Interpretation Comments MAGNESIUM (test code = 2379611344) 1.8 mg/dL 1.7-2.4 Lab Interpretation (test code = Normal 28624-8) [facility] WorthCB WITH [id number] 09:15:00 Test Item Value Reference Range Interpretation Comments WBC (test code = See_Comment [Automated 6690-2) message] The sy stem which generated this result transmitted reference range : 4.30 - 11.10 10*3/?L. The reference range was not used to interpret this result as normal/abnormal . RBC (test code = See_Comment L [Automated 789-8) message] The sy stem which generated this result transmitted reference range : 3.93 - 5.25 10*6/?L. The reference range was not used to interpret this result as normal/abnormal . HGB (test code = 9.1 g/dL 11.6-15 L 718-7) HCT (test code = 27.9 % 35.7-45.2 L 4544-3) MCV (test code = 90.0 fL 80.6-95.5 787-2) MCH (test code = 29.4 pg 25.9-32.8 785-6) MCHC (test code = 32.6 g/dL 31.6-35.1 786-4) RDW-SD (test code = 49.8 fL 39-49.9 83380-6) RDW-CV (test code = 14.9 % 12-15.5 788-0) PLT (test code = See_Comment [Automated 777-3) message] The sy stem which generated this result transmitted reference range : 166 - 358 10*3/ ?L. The reference r fernanda was not used to interpret this result as normal/abnormal . MPV (test code = 9.5 fL 9.5-12.9 05597-1) NRBC/100 WBC (test See_Comment [Automat ed code = 7746050780) message] The system which generated this result transmitted reference range : 0.0 - 10.0 /100 WBCs. The refer ence range was not u sed to interpret th is result as normal/abnormal . NRBC x10^3 (test code <0.01 See_Comment [Auto mated = 5637228100) message] The s ystem which generated this result transmitted reference range : 10*3/?L. The reference range was not used to interpret this result as normal/abnormal . GRAN MAT (NEUT) % 73.7 % (test code = 770-8) IMM GRAN % (test code 0.40 % = 6720133463) LYMPH % (test code = 17.2 % 736-9) MONO % (test code = 7.6 % 5905-5) EOS % (test code = 0.4 % 713-8) BASO % (test code = 0.7 % 706-2) GRAN MAT x10^3(ANC) 3.99 10*3/uL 1.88-7.09 (test code = 8593287519) IMM GRAN x10^3 (test <0.03 0-0.06 code = 6466493813) LYMPH x10^3 (test code 0.93 10*3/uL 1.32-3.29 L = 731-0) MONO x10^3 (test code 0.41 10*3/uL 0.33-0.92 = 742-7) EOS x10^3 (test code = <0.03 0.03-0.39 L 711-2) BASO x10^3 (test code 0.04 10*3/uL 0.01-0.07 = 704-7) Lab Interpretation Abnormal (test code = 44090-5) [id number] 07:10:00 Test Item Value Reference Range Interpretation Comments TROPONIN I (test <0.012 See_Comment [Automated code = 5400792736) message] The system which generated this result transmitted reference range : <=0.034 ng/mL. The reference range was not used to interpr et this result as normal/abnormal . NITHIN (test code = Equal or Less than NITHIN) 0.034 ng/ml---Normal ?Note: Cardiac troponin begins to rise 3-4 hours after the onset of ischemia. Repeat in 4-6 hours if the sample was drawn within 3-4 hours of the onset of the symptom and found normal. Between 0.035 and 0.120 ng/mL--- Borderline. Questionable myocardial injury or necrosis ? ?Note: Serial measurement may be necessary to confirm or exclude the diagnosis of myocardial injury or necrosis; Clinical correlation (symptoms, EKGs, imaging studies, and others) required; Repeat in 4-6 hours if clinically indicated. ? Equal or Higher than 0.121 ng/mL---Abnormal. Myocardial Injury or Necrosis Likely ? Biotin has been reported to cause a negative bias, interpret results relative to patient's use of biotin. ? Lab Interpretation Normal (test code = 86907-1) [facility] WorthTHYROID STIMULATING [id number] 06:58:00 Test Item Value Reference Range Interpretation Comments TSH (test code = See_Comment H [Automated message] 7946385174) The system [employer] generated this result transmitted ref erence range: 0.45 - 4 .70 mIU/L. The refe rence range was not u sed to interpret this result as normal/abnor mal. Lab Interpretation (test Abnormal code = 97466-7) [facility] Worth[facility]MINAL [id number] 06:36:00 Test Item Value Reference Range Interpretation Comments NT-proBNP (test code 880 pg/mL See_Comment H [Autom ated = 6398231740) message] The system which generated this result transmitted reference range : <=450. The reference range was not used to interpret this result as normal/abnormal . NITHIN (test code = NITHIN) Biotin has been reported to cause a negative bias, interpret results relative to patient's use of biotin. Lab Interpretation Abnormal (test code = 96285-0) [facility]2020-04-10 06:26:00 Test Item Value Reference Range Interpretation Comments MAGNESIUM (test code = 4486439492) 1.8 mg/dL 1.7-2.4 Lab Interpretation (test code = Normal 37200-9) [facility] WorthPHOSPHORUS2020-04-10 06:26:00 Test Item Value Reference Range Interpretation Comments PHOSPHORUS (test code = 8704176432) 3.6 mg/dL 2.5-5 Lab Interpretation (test code = Normal 07790-6) [facility] WorthCREATINE [id number] 06:26:00 Test Item Value Reference Range Interpretation Comments CK (test code = 8181395196) 63 U/L 33-194 Lab Interpretation (test code = Normal 01970-0) [facility] WorthCORONAVIRUS COVID-19 [id number] 02:59:00 Test Item Value Reference Range Interpretation Comments SARS-CoV-2 (test code = Not Detected Not Detected 02140-1) NITHIN (test code = NITHIN) ID NOW COVID-19 Assay is an isothermal nucleic acid amplification test intended for the qualitative detection of nucleic acid from SARS-CoV-2 viral RNA in nasopharyngeal (BEDSPREAD CUTTER) specimens. It is used under Emergency Use Authorization (EUA) by FDA. The limit of detection (LOD) of the assay is 125 Genome Equivalents/mL. A positive result is indicative of the presence of SARS-CoV-2 RNA. ?Clinical correlation with patient history and other diagnostic information is necessary to determine patient infection status. A negative (Not Detected) result does not preclude SARS-CoV-2 infection. Clinical correlation with patient history and other diagnostic information should be used in patient management decisions. Invalid: Please collect a new specimen for repeat patient testing if clinically indicated. Lab Interpretation Normal (test code = 31436-0) [facility] Worth[facility]INALYSIS2020-04-10 02:52:00 Test Item Value Reference Range Interpretation Comments APPEARANCE (test code = Clear Clear 5437539977) COLOR (test code = Yellow Yellow 6054297926) PH (test code = 4.8-8.0 3551790867) SP GRAVITY (test code = 1.003-1.030 6999653742) GLU U QUAL (test code = Normal Normal 4381516262) BLOOD (test code = 1+ Negative A 1104994806) KETONES (test code = 5 mg/dL Negative A 3585639285) PROTEIN (test code = Negative Negative 2887-8) UROBILIN (test code = Normal Normal 4856502053) BILIRUBIN (test code = Negative Negative 6600781063) NITRITE (test code = Negative Negative 8982182547) LEUK BRADLEY (test code = Negative Negative 1790151751) RBC/HPF (test code = See_Comment H [Autom ated message] 3989973444) The system [employer] generated this result transmitted ref erence range: 0 - 3 HP F. The reference range was not used to int erpret this result as normal/abnormal . WBC/HPF (test code = See_Comment [Autom ated message] 5802898785) The system [employer] generated this result transmitted ref erence range: 0 - 5 HP F. The reference range was not used to int erpret this result as normal/abnormal . BACTERIA (test code = Few Negative A 5499985580) MUCOUS (test code = Slight Negative LPF A 0627101839) SQ EPITH (test code = <1 HPF 6793147600) Lab Interpretation (test Abnormal code = 81856-9) [id number] 01:00:00 Test Item Value Reference Range Interpretation Comments TROPONIN I (test <0.012 See_Comment [Automated code = 7229302508) message] The system which generated this result transmitted reference range : <=0.034 ng/mL. The reference range was not used to interpr et this result as normal/abnormal . NITHIN (test code = Equal or Less than NITHIN) 0.034 ng/ml---Normal ?Note: Cardiac troponin begins to rise 3-4 hours after the onset of ischemia. Repeat in 4-6 hours if the sample was drawn within 3-4 hours of the onset of the symptom and found normal. Between 0.035 and 0.120 ng/mL--- Borderline. Questionable myocardial injury or necrosis ? ?Note: Serial measurement may be necessary to confirm or exclude the diagnosis of myocardial injury or necrosis; Clinical correlation (symptoms, EKGs, imaging studies, and others) required; Repeat in 4-6 hours if clinically indicated. ? Equal or Higher than 0.121 ng/mL---Abnormal. Myocardial Injury or Necrosis Likely ? Biotin has been reported to cause a negative bias, interpret results relative to patient's use of biotin. ? Lab Interpretation Normal (test code = 31671-9) [facility]OLIC [facility] ([id number])2019-08-12 00:49:00 Test Item Value Reference Range Interpretation Comments NA (test code = 140 mmol/L 135-145 6382453678) K (test code = 3.4 mmol/L 3.5-5 L 2952626463) CL (test code = 106 mmol/L 98-108 7978091030) CO2 TOTAL (test code = 24 mmol/L 23-31 4591056819) AGAP (test code = 2-16 4742919231) BUN (test code = 10 mg/dL 7-23 0473173708) GLUCOSE (test code = 106 mg/dL 70-110 7899698313) CREATININE (test code = 0.65 mg/dL 0.5-1.04 5385996981) TOTAL BILI (test code = 0.7 mg/dL 0.1-1.4 8213334348) CALCIUM (test code = 8.8 mg/dL 8.6-10.6 9284599653) T PROTEIN (test code = 7.0 g/dL 6.3-8.2 2622963893) ALBUMIN (test code = 3.5 g/dL 3.5-5 6283492054) ALK PHOS (test code = 137 U/L 34-122 H 7091563057) ALTv (test code = 13 U/L 5-35 1742-6) AST(SGOT) (test code = 25 U/L 13-40 1379169681) eGFR Calculation mL/min/1.73m2 (Non-) (test code = 3141679497) eGFR Calculation mL/min/1.73m2 () (test code = 1892800364) NITHIN (test code = NITHIN) Association of Glomerular Filtration Rate (GFR) and Staging of Kidney Disease* + --+ --+ ------+| GFR (mL/min/1.73 m2) ?| With Kidney Damage ?| ?Without Kidney Damage+ --------+ --------+ +| ?>90 ?| ?Stage one ?| ? Normal ?+ ---+ ---+ -------+| ?60-89 ?| ?Stage two ?| ? Decreased GFR ? + --+ --+ ------+| ?30-59 ?| ?Stage three ?| ? Stage three ? + --+ --+ ------+| ?15-29 ?| ?Stage four ? | ? Stage four ?+ ---+ ---+ -------+| ?<15 (or dialysis) ? ?| ?Stage five ? | ? Stage five ?+ ---+ ---+ -------+ *Each stage assumes the associated GFR level has been in effect for at least three months. ?Stages 1 to 5, with or without kidney disease, indicate chronic kidney disease. Notes: Determination of stages one and two (with eGFR >59mL/min/1.73 m2) requires estimation of kidney damage for at least three months as defined by structural or functional abnormalities of the kidney, manifested by either:Pathological abnormalities or Markers of kidney damage (including abnormalities in the composition of the blood or urine or abnormalities in imaging tests). Lab Interpretation Abnormal (test code = 19374-0) [facility] WITH [id number] 00:37:00 Test Item Value Reference Range Interpretation Comments WBC (test code = See_Comment [Automated 6690-2) message] The sy stem which generated this result transmitted reference range : 4.30 - 11.10 10*3/?L. The reference range was not used to interpret this result as normal/abnormal . RBC (test code = See_Comment L [Automated 789-8) message] The sy stem which generated this result transmitted reference range : 3.93 - 5.25 10*6/?L. The reference range was not used to interpret this result as normal/abnormal . HGB (test code = 10.5 g/dL 11.6-15 L 718-7) HCT (test code = 32.4 % 35.7-45.2 L 4544-3) MCV (test code = 89.8 fL 80.6-95.5 787-2) MCH (test code = 29.1 pg 25.9-32.8 785-6) MCHC (test code = 32.4 g/dL 31.6-35.1 786-4) RDW-SD (test code = 50.0 fL 39-49.9 H 87847-1) RDW-CV (test code = 15.1 % 12-15.5 788-0) PLT (test code = See_Comment [Automated 777-3) message] The sy stem which generated this result transmitted reference range : 166 - 358 10*3/ ?L. The reference r fernanda was not used to interpret this result as normal/abnormal . MPV (test code = 9.2 fL 9.5-12.9 L 37984-3) NRBC/100 WBC (test See_Comment [Automat ed code = 8362010096) message] The system which generated this result transmitted reference range : 0.0 - 10.0 /100 WBCs. The refer ence range was not u sed to interpret th is result as normal/abnormal . NRBC x10^3 (test code <0.01 See_Comment [Auto mated = 4107945683) message] The s ystem which generated this result transmitted reference range : 10*3/?L. The reference range was not used to interpret this result as normal/abnormal . GRAN MAT (NEUT) % 75.7 % (test code = 770-8) IMM GRAN % (test code 0.50 % = 6234055395) LYMPH % (test code = 17.1 % 736-9) MONO % (test code = 5.7 % 5905-5) EOS % (test code = 0.4 % 713-8) BASO % (test code = 0.6 % 706-2) GRAN MAT x10^3(ANC) 5.98 10*3/uL 1.88-7.09 (test code = 7435276924) IMM GRAN x10^3 (test 0.04 10*3/uL 0-0.06 code = 6877200280) LYMPH x10^3 (test code 1.35 10*3/uL 1.32-3.29 = 731-0) MONO x10^3 (test code 0.45 10*3/uL 0.33-0.92 = 742-7) EOS x10^3 (test code = 0.03 10*3/uL 0.03-0.39 711-2) BASO x10^3 (test code 0.05 10*3/uL 0.01-0.07 = 704-7) Lab Interpretation Abnormal (test code = 70674-3) [facility] [id number] 00:34:57 1. ?Left lower lobe opacities again seen likely represent combination ofatelectasis or scarring.2. ?A left-sided moderate-sized hiatal hernia is again seen.EXAM: XR CHEST 1 VW HISTORY: fall, LOC COMPARISON: 07/24/2019 FINDINGS: Lines/Tubes: None. Lungs: Again seen the left lower lobe hazy opacity with an air-fluid levelconsistent with hiatal hernia and adjacent atelectasis or scarring. Nopleural effusion or pneumothorax is identified. Heart/Mediastinum: The cardiomediastinal silhouette is normal fortechnique. Bones: No acute osseous abnormality is seen. Right shoulder reversearthroplasty was partial visualized. [facility], Radiant Results Inft User - 08/11/2019 7:36 PM CDTEXAM: XR CHEST 1 VWHISTORY: fall, LOC COMPARISON: 07/24/2019FINDINGS:Lines/Tubes: None.Lungs: Again seen the left lower lobe hazy opacity with an air-fluid levelconsistent with hiatal hernia and adjacent atelectasis or scarring. Nopleural effusion or pneumothorax is identified.Heart/Mediastinum: The cardiomediastinal silhouette is normal fortechnique.Bones: No acute osseous abnormality is seen. Right shoulder reversearthroplasty was partial visualized.IMPRESSION1. Left lower lobe opacities again seen likely represent combinationofatelectasis or scarring.2. A left-sided moderate-sized hiatal hernia is again seen.[facility] WorthLaceration [id number] 20:59:00Neda Kearney PAC ? ? 08/11/2019 ?3:59 PMLaceration RepairPerformed by: Neda Kearney PACAuthorized by: Neda Kearney PAC Consent: ?Consent obtained: unable to obtain verbal consent for procedurefrom patient due to dementia but consent given by family to treat patient. ?Risks discussed: ?Infection, poor wound healing and need for additional repair (with patient's daughter)[place] protocol: ?Patient identity confirmed: ?Arm bandAnesthesia (see MAR for exact dosages): ?Anesthesia method: ?Local infiltration ?Local anesthetic: ?Lidocaine 1% w/o epiLaceration details: ?Location: ?Scalp ?Scalp location: ?OccipitalRepair type: ?Repair type: ?IntermediateExploration: ?Hemostasis achieved with: ?Direct pressure ?Wound exploration: entire depth of wound probed and visualized ? ?Wound extent:no foreign bodies/material noted ?Treatment: ?Area cleansed with: ?Betadine ?Amount of cleaning: ?StandardSkin repair: ?Repair method: ?[place] ?Number of myrna: ?2Approximation: ?Approximation: ?ClosePost- procedure details: ?Dressing: ?Bulky dressing (pressure dressing) ?Patient tolerance of procedure: ?Tolerated well, no immediate complicationsComments: ? Small laceration with large hematomaunderlying; created limited defect by expanding laceration to drain bleeding and myrna placed in wound followed by surgicel and pressure dressing.[facility] WorthCT CERVICAL SPINE WO [id number] 19:53:25HISTORY: ?Trauma. S/P fall. TECHNIQUE: 66- multidetector Spiral CT of the cervical spine is obtained andsubsequently sagittal, coronal reformations are obtained. FINDINGS: Comparison is made with 07/24/2019 study. No acute compression fracture in cervical spine detected. However,compression fracture is seen involving upper plate of T3 vertebral body, ofuncertain age. Unfortunately the T3 was not included in the previous CTscan of 07/24/2019. A linear radiolucent line also noted in the left lamina of T3 with wellcorticated edges. This is not confirmed to be a definite fracture on thereformatted sagittal and coronal images and could be caused by focaldegenerative change in the superior articular facetof T4 vertebral body. Lower cervical and upper thoracic levoscoliosis noted. Degenerative discdisease noted at C5-C6, C6-C7. Facet arthritis noted, bilateral at C3-C4,C4-C5, C7-T1 and T1-T2 levels. Left facet joint at C2-C3 is partiallyfused. Soft tissues in prevertebral region appear normal. Spinal cord or ligamentor vascular injury can not be evaluated by this study. CONCLUSIONS: Compression fracture in upper T3 with loss of smarzfuazmdnj98% of the height. Exact age of the fracture is uncertain. Unfortunately B5nhvpmzhor body was not included in previous CT scan of 07/24/2019. However,fracture appears stable with no encroachment into the spinal canal. [facility], Radiant Results Inft User - 08/11/20192:54 PM CDTHISTORY: Trauma. S/P fall.TECHNIQUE: 64-multidetector Spiral CT of the cervical spine is obtained andsubsequently sagittal, coronal reformations are obtained.FINDINGS: Comparison is made with 07/24/2019 study.No acute compression fracture in cervical spine detected. However,compression fracture is seen involving upper plate of T3 vertebral body, ofuncertain age. Unfortunately the T3 was not included in the previous CTscan of 07/24/2019. A linear radiolucent line also noted in the left lamina of T3 with wellcorticated edges. This is not confirmed to be a definite fracture on thereformattedsagittal and coronal images and could be caused by focaldegenerative change in the superior articular facet of T4 vertebral body.Lower cervical and upper thoracic levoscoliosis noted. Degenerative discdisease noted at C5-C6, C6-C7. Facet arthritis noted, bilateral at C3-C4,C4-C5, C7-T1 and T1-T2 levels. Left facet joint at C2-C3 is partiallyfused.Soft tissues in prevertebral region appear normal. Spinal cord or ligamentor vascular injury can not be evaluated by this study.CONCLUSIONS: Compression fracture in upper T3 with loss of kwlcsavqtrcsz64% of the height. Exact age of the fracture is uncertain. Unfortunately Z4oeqcrabtk body was not included in previous CT scan of 07/24/2019. However,fractureappears stable with no encroachment into the spinal canal.[facility] WorthCT HEAD WO [id number] 19:50:21 A large, mixed density posterior scalp hematoma with evidence of ongoingbleeding is noted. There isno underlying calvarial fracture or acute intracranialabnormality.CT HEAD WO CONTRAST HISTORY: Female 78 years fall-head injury COMPARISON: CT head dated 07/24/2019 TECHNIQUE: Routine CT head without contrast FINDINGS: A large, mixed density scalp hematoma is noted posteriorly. The ventricles are unchanged in caliber and configuration. The ventriclesare unchanged in caliber and configuration with mild dilatation of thelateral and third ventricles again noted. No midline shift or pathologicalextra-axial fluid collection is present. The basal cisterns areunremarkable. No acute intracranial hemorrhageor mass effect is present. The keen-whitematter differentiation is preserved. Mild background ischemic small vesseldisease is again noted. The calvarium and skull base are unremarkable. The mastoid aircells andvisualized paranasal air sinuses are clear. [facility], Radiant Results Inft User - 08/11/2019 2:51 PM CDTCT HEAD WO CONTRASTHISTORY: Female 78 years fall-head injury COMPARISON: CT head dated 07/24/2019TECHNIQUE: Routine CT head without contrastFINDINGS:A large, mixed density scalp hematoma is noted posteriorly.The ventricles are unchanged in caliber and configuration. The ventriclesare unchangedin caliber and configuration with mild dilatation of thelateral and third ventricles again noted. Nomidline shift or pathologicalextra-axial fluid collection is present. The basal cisterns areunremarkable.No acute intracranial hemorrhage or mass effect is present. The keen-whitematter differentiationis preserved. Mild background ischemic small vesseldisease is again noted.The calvarium and skull base are unremarkable. The mastoid air cells andvisualized paranasal air sinuses are clear.IMPRESSIONA l arge, mixed density posterior scalp hematoma with evidence of ongoingbleeding is noted.There is no underlying calvarial fracture or acute intracranialabnormality.[facility] WorthXR FOOT 3+ VW LEFT 2019-07-24 17:43:01 Displaced angulated fracture of the second toe distal P1. Diffuse osteopenia. 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 COMPARISON: None FINDINGS: Radiographs of the leftfoot demonstrate displaced angulated fracture ofthe second toe P1 head/neck with apex lateral angulation of the distalfracture fragment. The joints maintain alignment. Diffuse osteopenia isseen. Calcaneal enthesophyte formation is seen. Osteoarthritic changes ofthe talonavicular joint are noted. 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 Degenerative cyst formation is seen at the superior medial navicular bone.Mild soft tissue swelling around the distal second toe is seen. [facility], [facility] Results Inft User - 07/24/2019 12:44 PM CDTEXAM:XR FOOT 3+ VW LEFTHISTORY:left 2nd toe pain and abnormality. COMPARISON:NoneFINDINGS: Radiographs of the left foot demonstrate displaced angulated fracture ofthe second toe P1 head/neck with apex lateral angulation of the distalfracture fragment. The joints maintain alignment. Diffuse osteopenia isseen. Calcaneal enthesophyte formation is seen. Osteoarthritic changes ofthe talonavicular joint are noted. 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 Degenerative cyst formation is seen at the superior medial navicular bone.Mild soft tissue swelling around the distal second toe is seen.IMPRESSIONDisplaced angulated fracture of the second toe distal P1.Diffuse osteopenia.Naviculocuneiform osteo arthrosis with overlying soft tissue swellingPreliminary Report Dictated by Resident: Jeffrey Wilkins MD., have reviewed this study and agree with the abovereport.[facility] WorthXR FOOT <3 VW LEFT 2019-07-24 17:41:51 Successful reduction of the second toe P1 fracture. Preliminary Report Dictated by Resident: Jeffrey Garcia MD., have reviewed this study and agree with the abovereport.EXAM: XR FOOT <3 VW LEFT HISTORY: post reduction of 2nd toe on left foot. COMPARISON: Same day left foot radiographs FINDINGS: Status post reduction radiographs demonstrate interval improved alignmentof the second toe P1 fracture, now in anatomic alignment. Diffuseosteopenia is noted. Overlying soft tissue swelling is present. [facility], Radiant Results Inft User - 07/24/2019 12:42 PM CDTEXAM:XR FOOT <3 VW LEFTHISTORY:post reduction of 2nd toe on left foot. COMPARISON:Same day left foot radiographsFINDINGS: Status post reduction radiographs demonstrate interval improved alignmentof the second toe P1 fracture, now in anatomic alignment. Diffuseosteopenia is noted. Overlying soft tissue swelling is present.IMPRESSIONSuccessful reduction of the second toe P1 fracture.Preliminary Report Dictated by Resident: Jeffrey Wilkins MD., have reviewed this study and agree with the abovereport.[facility] [id number] 16:48:00 Test Item Value Reference Range Interpretation Comments APPEARANCE (test code = Clear Clear 1239599586) COLOR (test code = Straw Yellow A 1746559648) PH (test code = 4.8-8.0 9960896566) SP GRAVITY (test code = 1.003-1.030 4189619097) GLU U QUAL (test code = Normal Normal 1119262727) BLOOD (test code = 1+ Negative A 0322892054) KETONES (test code = Negative Negative 0645597463) PROTEIN (test code = Negative Negative 2887-8) UROBILIN (test code = Normal Normal 8611872589) BILIRUBIN (test code = Negative Negative 8605678016) NITRITE (test code = Negative Negative 1658708061) LEUK BRADLEY (test code = Negative Negative 4063371435) RBC/HPF (test code = See_Comment [Autom ated message] 4426901754) The system [employer] generated this result transmitted ref erence range: 0 - 3 HP F. The reference range was not used to int erpret this result as normal/abnormal . WBC/HPF (test code = See_Comment [Autom ated message] 3108608325) The system [employer] generated this result transmitted ref erence range: 0 - 5 HP F. The reference range was not used to int erpret this result as normal/abnormal . BACTERIA (test code = Negative Negative 0836837520) SQ EPITH (test code = <1 HPF 8464725588) Lab Interpretation (test Abnormal code = 90690-1) [facility] WorthCT HEAD WO [id number] 16:40:28 No acute intracranial findings. No acute osseous findings in the cervical spine. HISTORY: Head trauma, minor, GCS>=13, high clinical risk, initial examAltered mental status (AMS), unclear cause TECHNIQUE:CT head without contrast.CT cervical spine without contrast. COMPARISON: 02/17/2018. FINDINGS: CT HEAD: The ventricles and sulci are within normal limits for patient's age. Asmall contusion is seen in the midline frontal scalp (2:8). There is nomidline shift. The basal cisterns are preserved. No large vascularterritory infarction, intracranial hemorrhage or mass effect is seen. ? CT cervical spine: There is mild anterolisthesis of C3 on C4. The vertebral body heights arepreserved. No acutefractures are seen. Fusion is seen in the C2-C3 andC6-C7 vertebral bodies. Moderate multilevel degenerative changes are notedthe form of disc space narrowing, marginal osteophytes and facetarthropathy,with the facet arthropathy being the dominant component ofthese changes. [facility], Radiant Results Inft User - 07/24/2019 11:41 AM CDTHISTORY: Head trauma, minor, GCS>=13, high clinical risk, initial examAltered mental status (AMS), unclear cause TECHNIQUE:CT head without contrast.CT cervical spine without contrast. COMPARISON: 02/17/2018.FINDINGS:CT HEAD:The ventricles and sulci are within normal limits for patient's age. Asmall contusion is seen in the midline frontal scalp (2:8). There is nomidline shift. The basal cisterns are preserved. No large vascularterritory infarction, intracranial hemorrhage or mass effect is seen. CT cervical spine:There is mild anterolisthesis of C3 on C4. The vertebral body heights arepreserved. No acute fractures are seen. Fusion is seen in the C2-C3 andC6-C7 vertebral bodies. Moderate multilevel degenerative changes are notedthe form of disc space narrowing, marginal osteophytes and facetarthropathy, with the facet arthropathy being the dominant component ofthese changes.IMPRESSIONNo acute intracranial findings.No acute osseous findings in the cervical spine. [facility] SPINE WO [id number] 16:40:28 No acute intracranial findings. No acute osseous findings in the cervical spine. HISTORY: Head trauma, minor, GCS>=13, high clinical risk, initial examAltered mental status (AMS), unclear cause TECHNIQUE:CT head without contrast.CT cervical spine without contrast. COMPARISON: 02/17/2018. FINDINGS: CT HEAD: The ventricles and sulci are within normal limits for patient's age. Asmall contusion is seen in the midline frontal scalp (2:8). There is nomidline shift. The basal cisterns are preserved. No large vascularterritory infarction, intracranial hemorrhage or mass effect is seen. ? CT cervical spine: There is mild anterolisthesis of C3 on C4. The vertebral body heights arepreserved. No acutefractures are seen. Fusion is seen in the C2-C3 andC6-C7 vertebral bodies. Moderate multilevel degenerative changes are notedthe form of disc space narrowing, marginal osteophytes and facetarthropathy,with the facet arthropathy being the dominant component ofthese changes. [facility], [facility]iant Results Inft User - 07/24/2019 11:41 AM CDTHISTORY: Head trauma, minor, GCS>=13, high clinical risk, initial examAltered mental status (AMS), unclear cause TECHNIQUE:CT head without contrast.CT cervical spine without contrast. COMPARISON: 02/17/2018.FINDINGS:CT HEAD:The ventricles and sulci are within normal limits for patient's age. Asmall contusion is seen in the midline frontal scalp (2:8). There is nomidline shift. The basal cisterns are preserved. No large vascularterritory infarction, intracranial hemorrhage or mass effect is seen. CT cervical spine:There is mild anterolisthesis of C3 on C4. The vertebr al body heights arepreserved. No acute fractures are seen. Fusion is seen in the C2-C3 andC6-C7 vertebral bodies. Moderate multilevel degenerative changes are notedthe form of disc space narrowing, marginal osteophytes and facetarthropathy, with the facet arthropathy being the dominant component ofthes e changes.IMPRESSIONNo acute intracranial findings.No acute osseous findings in the cervical spine.[facility] 1 [id number] 16:19:01 Left lower lobe opacities likely representing atelectasis/scarring.Infection cannot be excluded. Moderate-sized hiatal hernia, unchanged. Preliminary Report Dictated by Resident: Randall Garcia MD., have reviewed this study and agree with the abovereport.XR CHEST 1 VW HISTORY: AMS, fall COMPARISON: 06/24/2019 TECHNIQUE: AP radiograph of the chest was performed. FINDINGS: Emphysematous lungs. Rounded opacity projecting over the mediastinum withair-fluid levels likely representing a moderate size hiatal hernia,unchanged. Left lower lobe hazy opacities may representscarring/atelectasis and/or consolidations. No right pleural effusion. Nopneumothorax. The lower neck is not included on the study and notevaluated. The heart size is normal. Calcifications of the aortic knob. No acute osseous abnormality. Prior cholecystectomy. Diffuse osteopenia.Right shoulder arthroplasty changes arepartially visualized. [facility], Radiant Results Inft User - 07/24/2019 11:20 AM CDTXR CHEST 1 VWHISTORY:AMS, fall COMPARISON: 06/24/2019TECHNIQUE: AP radiograph of the chest was performed.FINDINGS:Emphysema tous lungs. Rounded opacity projecting over the mediastinum withair-fluid levels likely representinga moderate size hiatal hernia,unchanged. Left lower lobe hazy opacities may representscarring/atelectasis and/or consolidations. No right pleural effusion. Nopneumothorax. The lower neck is not included on the study and notevaluated.The heart size is normal. Calcifications of the aortic knob.No acute osseous abnormality. Prior cholecystectomy. Diffuse osteopenia.Right shoulder arthroplasty changes are partially visualized.IMPRESSIONLeft lower lobe opacities likely representing atelectasis/scarring.Infection cannot be excluded.Moderate-sized hiatal hernia, unchanged.Preliminary Report Dictated by Resident: Randall Wilkins MD., have reviewed this study and agree with the abovereport.[facility] WorthTROPONIN [id number] 15:53:00 Test Item Value Reference Range Interpretation Comments TROPONIN I (test 0.006 ng/mL See_Comment [Automated code = 1647016694) message] The system which generated this result transmitted reference range : <=0.034. The reference range was not used to interpret this result as normal/abnormal . NITHIN (test code = Equal or Less than NITHIN) 0.034 ng/ml---Normal ?Note: Cardiac troponin begins to rise 3-4 hours after the onset of ischemia. Repeat in 4-6 hours if the sample was drawn within 3-4 hours of the onset of the symptom and found normal. Between 0.035 and 0.120 ng/mL--- Borderline. Questionable myocardial injury or necrosis ? ?Note: Serial measurement may be necessary to confirm or exclude the diagnosis of myocardial injury or necrosis; Clinical correlation (symptoms, EKGs, imaging studies, and others) required; Repeat in 4-6 hours if clinically indicated. ? Equal or Higher than 0.121 ng/mL---Abnormal. Myocardial Injury or Necrosis Likely ? Biotin has been reported to cause a negative bias, interpret results relative to patient's use of biotin. ? Lab Interpretation Normal (test code = 08175-4) [facility] WorthPROTHROMBIN TIME / [id number] 15:45:00 Test Item Value Reference Range Interpretation Comments PROTIME PATIENT (test See_Comment [Auto mated message] code = 5964-2) The system wh ich generated this result transmitted ref erence range: 12.0 - 1 4.7 Seconds. The re ference range was not u sed to interpret this result as normal/abnor mal. INR (test code = 6301-6) Nor mal INR <1.1; Warfarin Therap eutic range 2.0 to 3. 0 or 2.5 to 3.5, dep ending upon the indica tions. Lab Interpretation (test Normal code = 05690-5) [facility] WorthaPTT2020-03-22 15:43:00 Test Item Value Reference Range Interpretation Comments APTT Patient (test See_Comment [Automat ed code = 3173-2) message] The system which generated this result transmitted reference range : 23 - 38 Seconds . The reference range was not used to interpr et this result as normal/abnormal . NITHIN (test code = NITHIN) The [facility] patient population mean normal value for aPTT is 30 seconds. Lab Interpretation Normal (test code = 48583-0) [facility]. METABOLIC PANEL (53908)2019-07-24 15:42:00 Test Item Value Reference Range Interpretation Comments NA (test code = 136 mmol/L 135-145 7794570174) K (test code = 3.1 mmol/L 3.5-5 L 5267622083) CL (test code = 102 mmol/L 98-108 8172623119) CO2 TOTAL (test code = 25 mmol/L 23-31 8724491275) AGAP (test code = 2-16 6840595734) BUN (test code = 11 mg/dL 7-23 3075416165) GLUCOSE (test code = 99 mg/dL 70-110 0400693683) CREATININE (test code = 0.70 mg/dL 0.5-1.04 1338332107) TOTAL BILI (test code = 1.0 mg/dL 0.1-1.9 7189794295) CALCIUM (test code = 8.8 mg/dL 8.6-10.6 7007372302) T PROTEIN (test code = 7.3 g/dL 6.3-8.2 3430096129) ALBUMIN (test code = 3.7 g/dL 3.5-5 2808866133) ALK PHOS (test code = 121 U/L 34-122 7064971179) ALTv (test code = 11 U/L 5-35 1742-6) AST(SGOT) (test code = 27 U/L 13-40 7301803983) eGFR Calculation mL/min/1.73m2 (Non-) (test code = 6236719981) eGFR Calculation mL/min/1.73m2 () (test code = 8677476621) NITHIN (test code = NITHIN) Association of Glomerular Filtration Rate (GFR) and Staging of Kidney Disease* + --+ --+ ------+| GFR (mL/min/1.73 m2) ?| With Kidney Damage ?| ?Without Kidney Damage+ --------+ --------+ +| ?>90 ?| ?Stage one ?| ? Normal ?+ ---+ ---+ -------+| ?60-89 ?| ?Stage two ?| ? Decreased GFR ? + --+ --+ ------+| ?30-59 ?| ?Stage three ?| ? Stage three ? + --+ --+ ------+| ?15-29 ?| ?Stage four ? | ? Stage four ?+ ---+ ---+ -------+| ?<15 (or dialysis) ? ?| ?Stage five ? | ? Stage five ?+ ---+ ---+ -------+ *Each stage assumes the associated GFR level has been in effect for at least three months. ?Stages 1 to 5, with or without kidney disease, indicate chronic kidney disease. Notes: Determination of stages one and two (with eGFR >59mL/min/1.73 m2) requires estimation of kidney damage for at least three months as defined by structural or functional abnormalities of the kidney, manifested by either:Pathological abnormalities or Markers of kidney damage (including abnormalities in the composition of the blood or urine or abnormalities in imaging tests). Lab Interpretation Abnormal (test code = 05805-6) [facility] WITH [id number] 15:29:00 Test Item Value Reference Range Interpretation Comments WBC (test code = See_Comment [Automated 9650-2) message] The sy stem which generated this result transmitted reference range : 4.30 - 11.10 10*3/?L. The reference range was not used to interpret this result as normal/abnormal . RBC (test code = See_Comment L [Automated 839-8) message] The sy stem which generated this result transmitted reference range : 3.93 - 5.25 10*6/?L. The reference range was not used to interpret this result as normal/abnormal . HGB (test code = 11.2 g/dL 11.6-15 L 718-7) HCT (test code = 34.1 % 35.7-45.2 L 4544-3) MCV (test code = 87.0 fL 80.6-95.5 787-2) MCH (test code = 28.6 pg 25.9-32.8 785-6) MCHC (test code = 32.8 g/dL 31.6-35.1 786-4) RDW-SD (test code = 48.1 fL 39-49.9 33545-9) RDW-CV (test code = 15.1 % 12-15.5 788-0) PLT (test code = See_Comment [Automated 777-3) message] The sy stem which generated this result transmitted reference range : 166 - 358 10*3/ ?L. The reference r fernanda was not used to interpret this result as normal/abnormal . MPV (test code = 9.3 fL 9.5-12.9 L 56623-3) NRBC/100 WBC (test See_Comment [Automat ed code = 8418183911) message] The system which generated this result transmitted reference range : 0.0 - 10.0 /100 WBCs. The refer ence range was not u sed to interpret th is result as normal/abnormal . NRBC x10^3 (test code <0.01 See_Comment [Auto mated = 6869665563) message] The s ystem which generated this result transmitted reference range : 10*3/?L. The reference range was not used to interpret this result as normal/abnormal . GRAN MAT (NEUT) % 86.9 % (test code = 770-8) IMM GRAN % (test code 0.50 % = 7331030570) LYMPH % (test code = 7.5 % 736-9) MONO % (test code = 4.7 % 5905-5) EOS % (test code = 0.2 % 713-8) BASO % (test code = 0.2 % 706-2) GRAN MAT x10^3(ANC) 7.16 10*3/uL 1.88-7.09 H (test code = 0527829882) IMM GRAN x10^3 (test 0.04 10*3/uL 0-0.06 code = 6913397844) LYMPH x10^3 (test code 0.62 10*3/uL 1.32-3.29 L = 731-0) MONO x10^3 (test code 0.39 10*3/uL 0.33-0.92 = 742-7) EOS x10^3 (test code = <0.03 0.03-0.39 L 711-2) BASO x10^3 (test code <0.03 0.01-0.07 = 704-7) Lab Interpretation Abnormal (test code = 53184-5) [facility] WITH [id number] 14:33:00 Test Item Value Reference Range Interpretation Comments WBC (test code = See_Comment [Automated 6690-2) message] The sy stem which generated this result transmitted reference range : 4.30 - 11.10 10*3/?L. The reference range was not used to interpret this result as normal/abnormal . RBC (test code = See_Comment L [Automated 789-8) message] The sy stem which generated this result transmitted reference range : 3.93 - 5.25 10*6/?L. The reference range was not used to interpret this result as normal/abnormal . HGB (test code = 10.5 g/dL 11.6-15 L 718-7) HCT (test code = 33.1 % 35.7-45.2 L 4544-3) MCV (test code = 84.7 fL 80.6-95.5 787-2) MCH (test code = 26.9 pg 25.9-32.8 785-6) MCHC (test code = 31.7 g/dL 31.6-35.1 786-4) RDW-SD (test code = 45.6 fL 39-49.9 34264-5) RDW-CV (test code = 14.8 % 12-15.5 788-0) PLT (test code = See_Comment L [Automated 777-3) message] The sy stem which generated this result transmitted reference range : 166 - 358 10*3/ ?L. The reference r fernanda was not used to interpret this result as normal/abnormal . MPV (test code = 9.8 fL 9.5-12.9 28643-6) NRBC/100 WBC (test See_Comment [Automat ed code = 6528245511) message] The system which generated this result transmitted reference range : 0.0 - 10.0 /100 WBCs. The refer ence range was not u sed to interpret th is result as normal/abnormal . NRBC x10^3 (test code <0.01 See_Comment [Auto mated = 8483367648) message] The s ystem which generated this result transmitted reference range : 10*3/?L. The reference range was not used to interpret this result as normal/abnormal . GRAN MAT (NEUT) % 64.8 % (test code = 770-8) IMM GRAN % (test code 0.40 % = 3082924359) LYMPH % (test code = 23.4 % 736-9) MONO % (test code = 9.7 % 5905-5) EOS % (test code = 1.1 % 713-8) BASO % (test code = 0.6 % 706-2) GRAN MAT x10^3(ANC) 3.01 10*3/uL 1.88-7.09 (test code = 2466973834) IMM GRAN x10^3 (test <0.03 0-0.06 code = 4292624005) LYMPH x10^3 (test code 1.09 10*3/uL 1.32-3.29 L = 731-0) MONO x10^3 (test code 0.45 10*3/uL 0.33-0.92 = 742-7) EOS x10^3 (test code = 0.05 10*3/uL 0.03-0.39 711-2) BASO x10^3 (test code 0.03 10*3/uL 0.01-0.07 = 704-7) Lab Interpretation Abnormal (test code = 70745-0) [facility] METABOLIC PANEL (NA, K, CL, CO2, GLUCOSE, BUN, CREATININE, CA)2019-06-26 12:56:00 Test Item Value Reference Range Interpretation Comments NA (test code = 134 mmol/L 135-145 L 0572389701) K (test code = 5.0 mmol/L 3.5-5 3404712147) CL (test code = 107 mmol/L 98-108 4827074169) CO2 TOTAL (test code = 24 mmol/L 23-31 0796011831) AGAP (test code = 2-16 8647775081) BUN (test code = 12 mg/dL 7-23 1593900222) GLUCOSE (test code = 86 mg/dL 70-110 9545459510) CREATININE (test code = 0.57 mg/dL 0.5-1.04 8851134768) CALCIUM (test code = 8.6 mg/dL 8.6-10.6 1897887722) eGFR Calculation mL/min/1.73m2 (Non-) (test code = 7157241013) eGFR Calculation mL/min/1.73m2 () (test code = 2168273948) NITHIN (test code = NITHIN) Association of Glomerular Filtration Rate (GFR) and Staging of Kidney Disease* + --+ --+ ------+| GFR (mL/min/1.73 m2) ?| With Kidney Damage ?| ?Without Kidney Damage+ --------+ --------+ +| ?>90 ?| ?Stage one ?| ? Normal ?+ ---+ ---+ -------+| ?60-89 ?| ?Stage two ?| ? Decreased GFR ? + --+ --+ ------+| ?30-59 ?| ?Stage three ?| ? Stage three ? + --+ --+ ------+| ?15-29 ?| ?Stage four ? | ? Stage four ?+ ---+ ---+ -------+| ?<15 (or dialysis) ? ?| ?Stage five ? | ? Stage five ?+ ---+ ---+ -------+ *Each stage assumes the associated GFR level has been in effect for at least three months. ?Stages 1 to 5, with or without kidney disease, indicate chronic kidney disease. Notes: Determination of stages one and two (with eGFR >59mL/min/1.73 m2) requires estimation of kidney damage for at least three months as defined by structural or functional abnormalities of the kidney, manifested by either:Pathological abnormalities or Markers of kidney damage (including abnormalities in the composition of the blood or urine or abnormalities in imaging tests). Lab Interpretation Abnormal (test code = 57064-3) [facility] WorthMAGNESIUM2020-02-22 15:42:00 Test Item Value Reference Range Interpretation Comments MAGNESIUM (test code = 6615270845) 1.7 mg/dL 1.7-2.4 Lab Interpretation (test code = Normal 35470-2) [facility] WorthTroponin [id number] 10:30:00 Test Item Value Reference Range Interpretation Comments TROPONIN I (test 0.007 ng/mL See_Comment [Automated code = 0435101894) message] The system which generated this result transmitted reference range : <=0.034. The reference range was not used to interpret this result as normal/abnormal . NITHIN (test code = Equal or Less than NITHIN) 0.034 ng/ml---Normal ?Note: Cardiac troponin begins to rise 3-4 hours after the onset of ischemia. Repeat in 4-6 hours if the sample was drawn within 3-4 hours of the onset of the symptom and found normal. Between 0.035 and 0.120 ng/mL--- Borderline. Questionable myocardial injury or necrosis ? ?Note: Serial measurement may be necessary to confirm or exclude the diagnosis of myocardial injury or necrosis; Clinical correlation (symptoms, EKGs, imaging studies, and others) required; Repeat in 4-6 hours if clinically indicated. ? Equal or Higher than 0.121 ng/mL---Abnormal. Myocardial Injury or Necrosis Likely ? Biotin has been reported to cause a negative bias, interpret results relative to patient's use of biotin. ? Lab Interpretation Normal (test code = 99898-8) [facility] WorthB[facility]abolic Panel (NA, K, CL, CO2, GLUCOSE, BUN, CREATININE, CA)2019-06-25 10:18:00 Test Item Value Reference Range Interpretation Comments NA (test code = 137 mmol/L 135-145 2133900863) K (test code = 3.2 mmol/L 3.5-5 L 7872340265) CL (test code = 107 mmol/L 98-108 2181240996) CO2 TOTAL (test code = 24 mmol/L 23-31 4328108297) AGAP (test code = 2-16 7040592170) BUN (test code = 13 mg/dL 7-23 7408945336) GLUCOSE (test code = 102 mg/dL 70-110 9366530211) CREATININE (test code = 0.70 mg/dL 0.5-1.04 7119619948) CALCIUM (test code = 8.8 mg/dL 8.6-10.6 7645022830) eGFR Calculation mL/min/1.73m2 (Non-) (test code = 2165864411) eGFR Calculation mL/min/1.73m2 () (test code = 4302053345) NITHIN (test code = NITHIN) Association of Glomerular Filtration Rate (GFR) and Staging of Kidney Disease* + --+ --+ ------+| GFR (mL/min/1.73 m2) ?| With Kidney Damage ?| ?Without Kidney Damage+ --------+ --------+ +| ?>90 ?| ?Stage one ?| ? Normal ?+ ---+ ---+ -------+| ?60-89 ?| ?Stage two ?| ? Decreased GFR ? + --+ --+ ------+| ?30-59 ?| ?Stage three ?| ? Stage three ? + --+ --+ ------+| ?15-29 ?| ?Stage four ? | ? Stage four ?+ ---+ ---+ -------+| ?<15 (or dialysis) ? ?| ?Stage five ? | ? Stage five ?+ ---+ ---+ -------+ *Each stage assumes the associated GFR level has been in effect for at least three months. ?Stages 1 to 5, with or without kidney disease, indicate chronic kidney disease. Notes: Determination of stages one and two (with eGFR >59mL/min/1.73 m2) requires estimation of kidney damage for at least three months as defined by structural or functional abnormalities of the kidney, manifested by either:Pathological abnormalities or Markers of kidney damage (including abnormalities in the composition of the blood or urine or abnormalities in imaging tests). Lab Interpretation Abnormal (test code = 20821-8) [facility] WITH [id number] 09:40:00 Test Item Value Reference Range Interpretation Comments WBC (test code = See_Comment L [Automated 7590-2) message] The sy stem which generated this result transmitted reference range : 4.30 - 11.10 10*3/?L. The reference range was not used to interpret this result as normal/abnormal . RBC (test code = See_Comment L [Automated 789-8) message] The sy stem which generated this result transmitted reference range : 3.93 - 5.25 10*6/?L. The reference range was not used to interpret this result as normal/abnormal . HGB (test code = 10.0 g/dL 11.6-15 L 718-7) HCT (test code = 31.5 % 35.7-45.2 L 4544-3) MCV (test code = 84.2 fL 80.6-95.5 787-2) MCH (test code = 26.7 pg 25.9-32.8 785-6) MCHC (test code = 31.7 g/dL 31.6-35.1 786-4) RDW-SD (test code = 44.7 fL 39-49.9 47452-7) RDW-CV (test code = 14.4 % 12-15.5 788-0) PLT (test code = See_Comment L [Automated 777-3) message] The sy stem which generated this result transmitted reference range : 166 - 358 10*3/ ?L. The reference r fernanda was not used to interpret this result as normal/abnormal . MPV (test code = 9.4 fL 9.5-12.9 L 61881-0) NRBC/100 WBC (test See_Comment [Automat ed code = 3407178442) message] The system which generated this result transmitted reference range : 0.0 - 10.0 /100 WBCs. The refer ence range was not u sed to interpret th is result as normal/abnormal . NRBC x10^3 (test code <0.01 See_Comment [Auto mated = 4616509066) message] The s ystem which generated this result transmitted reference range : 10*3/?L. The reference range was not used to interpret this result as normal/abnormal . GRAN MAT (NEUT) % 63.1 % (test code = 770-8) IMM GRAN % (test code 0.50 % = 5953565858) LYMPH % (test code = 26.1 % 736-9) MONO % (test code = 8.6 % 5905-5) EOS % (test code = 1.0 % 713-8) BASO % (test code = 0.7 % 706-2) GRAN MAT x10^3(ANC) 2.66 10*3/uL 1.88-7.09 (test code = 8849359738) IMM GRAN x10^3 (test <0.03 0-0.06 code = 9517691347) LYMPH x10^3 (test code 1.10 10*3/uL 1.32-3.29 L = 731-0) MONO x10^3 (test code 0.36 10*3/uL 0.33-0.92 = 742-7) EOS x10^3 (test code = 0.04 10*3/uL 0.03-0.39 711-2) BASO x10^3 (test code 0.03 10*3/uL 0.01-0.07 = 704-7) Lab Interpretation Abnormal (test code = 14437-7) [facility] WorthVITAMIN B12, [id number] 08:16:00 Test Item Value Reference Range Interpretation Comments VIT B12 (test code = 285 pg/mL 240-930 9632317814) NITHIN (test code = NITHIN) Biotin has been reported to cause a positive bias, interpret results relative to patient's use of biotin. Lab Interpretation (test Normal code = 95990-8) [facility] WorthTroponin [id number] 06:18:00 Test Item Value Reference Range Interpretation Comments TROPONIN I (test 0.008 ng/mL See_Comment [Automated code = 3166917072) message] The system which generated this result transmitted reference range : <=0.034. The reference range was not used to interpret this result as normal/abnormal . NITHIN (test code = Equal or Less than NITHIN) 0.034 ng/ml---Normal ?Note: Cardiac troponin begins to rise 3-4 hours after the onset of ischemia. Repeat in 4-6 hours if the sample was drawn within 3-4 hours of the onset of the symptom and found normal. Between 0.035 and 0.120 ng/mL--- Borderline. Questionable myocardial injury or necrosis ? ?Note: Serial measurement may be necessary to confirm or exclude the diagnosis of myocardial injury or necrosis; Clinical correlation (symptoms, EKGs, imaging studies, and others) required; Repeat in 4-6 hours if clinically indicated. ? Equal or Higher than 0.121 ng/mL---Abnormal. Myocardial Injury or Necrosis Likely ? Biotin has been reported to cause a negative bias, interpret results relative to patient's use of biotin. ? Lab Interpretation Normal (test code = 80682-3) [facility] WorthFERRITIN [id number] 03:22:00 Test Item Value Reference Range Interpretation Comments FERRITIN (test code = 45.7 ng/mL 11-264 4647315967) NITHIN (test code = NITHIN) Biotin has been reported to cause a negative bias, interpret results relative to patient's use of biotin. Lab Interpretation (test Normal code = 35495-9) [facility] WorthGLYCOSYLATED HEMOGLOBIN (A1C)2019-06-25 02:37:00 Test Item Value Reference Interpretation Comments Range HGB A1C (test code = See_Comment [Autom ated 4548-4) message] The system which generated this result transmitted reference range : 4.0 - 6.0 % NGSP. The reference range was not used to interpret this result as normal/abnormal . NITHIN (test code = %A1C (NGSP) NITHIN) Interpretation (ADA)4.8-5.6 ? ? Normal or (Non-Diabetic Range)5.7-6.4 ? ? Increased Risk (Pre-Diabetic)>6.5 ?Diabetes Indicated Lab Interpretation Normal (test code = 35748-1) [facility] WorthIRON [id number] 02:32:00 Test Item Value Reference Range Interpretation Comments IRON (test code = 9206389488) 55 ug/dL 50-160 TIBC (test code = 6650377692) 268 ug/dL 250-410 % FE SAT (test code = 6543459239) 21 % 20-50 Lab Interpretation (test code = Normal 49109-4) [facility] WorthTroponin [id number] 00:50:00 Test Item Value Reference Range Interpretation Comments TROPONIN I (test 0.007 ng/mL See_Comment [Automated code = 0237259175) message] The system which generated this result transmitted reference range : <=0.034. The reference range was not used to interpret this result as normal/abnormal . NITHIN (test code = Equal or Less than NITHIN) 0.034 ng/ml---Normal ?Note: Cardiac troponin begins to rise 3-4 hours after the onset of ischemia. Repeat in 4-6 hours if the sample was drawn within 3-4 hours of the onset of the symptom and found normal. Between 0.035 and 0.120 ng/mL--- Borderline. Questionable myocardial injury or necrosis ? ?Note: Serial measurement may be necessary to confirm or exclude the diagnosis of myocardial injury or necrosis; Clinical correlation (symptoms, EKGs, imaging studies, and others) required; Repeat in 4-6 hours if clinically indicated. ? Equal or Higher than 0.121 ng/mL---Abnormal. Myocardial Injury or Necrosis Likely ? Biotin has been reported to cause a negative bias, interpret results relative to patient's use of biotin. ? Lab Interpretation Normal (test code = 80812-5) [facility] Worth[facility] (Total Cholesterol, Triglycerides, HDL)2019-06-25 00:49:00 Test Item Value Reference Range Interpretation Comments CHOL (test code = 106 mg/dL 120-200 L 5395756529) HDL (test code = 52 mg/dL >50 3826045893) HDLC RATIO (test code = See_Comment [Au tomated message] 6939403505) The system [employer] generated this result transmit benoit reference range : <=4.5. The refe rence range was not u sed to interpret th is result as normal/abnormal . TRIG (test code = 43 mg/dL 30-170 0519602812) LDL CHOL (test code = 45 mg/dL See_Comment [Auto mated message] 13215-9) The system [employer] generated this result transmit benoit reference range : <=160. The refe rence range was not u sed to interpret th is result as normal/abnormal . VLDL (test code = 9 mg/dL 5-60 0541712981) Lab Interpretation (test Abnormal code = 76297-8) [facility] WorthThyroid Stimulating Hormone (TSH)2019-06-25 00:31:00 Test Item Value Reference Range Interpretation Comments TSH (test code = See_Comment Biotin has been 2408700712) reported to cau se a negative bias, interpret resul ts relative to shane strauss's use of biotin. [Automated mess age] The system [employer] generated this result transmitted ref erence range: 0.45 - 4 .70 mIU/L. The refe rence range was not u sed to interpret this result as normal/abnor mal. Lab Interpretation (test Normal code = 62045-4) [facility] Worth[facility]INALYSIS2020-02-21 19:24:00 Test Item Value Reference Range Interpretation Comments APPEARANCE (test code = Clear Clear 5397304670) COLOR (test code = Yellow Yellow 4208674566) PH (test code = 4.8-8.0 3289874534) SP GRAVITY (test code = 1.003-1.030 7814808741) GLU U QUAL (test code = Normal Normal 8468272862) BLOOD (test code = 1+ Negative A 7690622673) KETONES (test code = Negative Negative 2628203852) PROTEIN (test code = Negative Negative 2887-8) UROBILIN (test code = Normal Normal 4438566118) BILIRUBIN (test code = Negative Negative 8688499101) NITRITE (test code = Negative Negative 5831451649) LEUK BRADLEY (test code = Negative Negative 8333969682) RBC/HPF (test code = See_Comment [Autom ated message] 8407194620) The system [employer] generated this result transmitted ref erence range: 0 - 3 HP F. The reference range was not used to int erpret this result as normal/abnormal . WBC/HPF (test code = See_Comment [Autom ated message] 6683392031) The system [employer] generated this result transmitted ref erence range: 0 - 5 HP F. The reference range was not used to int erpret this result as normal/abnormal . BACTERIA (test code = Negative Negative 1388887708) MUCOUS (test code = Slight Negative LPF A 5068232229) HYAL CAST (test code = See_Comment H [Aut omated message] 1148050054) The system [employer] generated this result transmitted ref erence range: <=2 LPF. The reference range was not used to int erpret this result as normal/abnormal . Lab Interpretation (test Abnormal code = 65030-9) [facility] WorthXR CHEST 1 [id number] 18:45:54 No acute intrathoracic abnormality. PROCEDURE: XR CHEST 1 VW CLINICAL INDICATION: dizziness COMPARISON: Chest x-ray dated 12/17/2016 FINDINGS: The lungs are clear. Small left-sided pleural effusion. No right pleuraleffusion. No . Noted is seen. The heart is physiologic upper limits insize. No acute bony abnormality. 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 [facility], Radiant Results Inft User - 06/24/2019 12:47 PM CSTPROCEDURE: XR CHEST 1 VWCLINICAL INDICATION: dizziness COMPARISON: Chest x-ray dated 12/17/2016FINDINGS:The lungs are clear. Small left-sided pleural effusion. No ri ght pleuraleffusion. No . Noted is seen. The heart is physiologic upper limits insize.No acute bony abnormality. 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 [facility] [id number] 18:30:00 Test Item Value Reference Range Interpretation Comments TROPONIN I (test <0.012 See_Comment [Automated code = 3088558229) message] The system which generated this result transmitted reference range : <=0.034 ng/mL. The reference range was not used to interpr et this result as normal/abnormal . NITHIN (test code = Equal or Less than NITHIN) 0.034 ng/ml---Normal ?Note: Cardiac troponin begins to rise 3-4 hours after the onset of ischemia. Repeat in 4-6 hours if the sample was drawn within 3-4 hours of the onset of the symptom and found normal. Between 0.035 and 0.120 ng/mL--- Borderline. Questionable myocardial injury or necrosis ? ?Note: Serial measurement may be necessary to confirm or exclude the diagnosis of myocardial injury or necrosis; Clinical correlation (symptoms, EKGs, imaging studies, and others) required; Repeat in 4-6 hours if clinically indicated. ? Equal or Higher than 0.121 ng/mL---Abnormal. Myocardial Injury or Necrosis Likely ? Biotin has been reported to cause a negative bias, interpret results relative to patient's use of biotin. ? Lab Interpretation Normal (test code = 22809-9) [facility]. METABOLIC PANEL ([id number])2019-06-24 18:18:00 Test Item Value Reference Range Interpretation Comments NA (test code = 137 mmol/L 135-145 0106276154) K (test code = 3.6 mmol/L 3.5-5 8446378555) CL (test code = 104 mmol/L 98-108 5207809446) CO2 TOTAL (test code = 28 mmol/L 23-31 2356681091) AGAP (test code = 2-16 9243379885) BUN (test code = 13 mg/dL 7-23 2418331567) GLUCOSE (test code = 126 mg/dL 70-110 H 4092435282) CREATININE (test code = 0.68 mg/dL 0.5-1.04 9273403150) TOTAL BILI (test code = 0.7 mg/dL 0.1-1.3 5674654162) CALCIUM (test code = 9.1 mg/dL 8.6-10.6 5101046160) T PROTEIN (test code = 7.1 g/dL 6.3-8.2 2777860571) ALBUMIN (test code = 3.5 g/dL 3.5-5 2892938448) ALK PHOS (test code = 111 U/L 34-122 1957549510) ALTv (test code = 24 U/L 5-35 1742-6) AST(SGOT) (test code = 44 U/L 13-40 H 0621612047) eGFR Calculation mL/min/1.73m2 (Non-) (test code = 5770571848) eGFR Calculation mL/min/1.73m2 () (test code = 0501521090) NITHIN (test code = NITHIN) Association of Glomerular Filtration Rate (GFR) and Staging of Kidney Disease* + --+ --+ ------+| GFR (mL/min/1.73 m2) ?| With Kidney Damage ?| ?Without Kidney Damage+ --------+ --------+ +| ?>90 ?| ?Stage one ?| ? Normal ?+ ---+ ---+ -------+| ?60-89 ?| ?Stage two ?| ? Decreased GFR ? + --+ --+ ------+| ?30-59 ?| ?Stage three ?| ? Stage three ? + --+ --+ ------+| ?15-29 ?| ?Stage four ? | ? Stage four ?+ ---+ ---+ -------+| ?<15 (or dialysis) ? ?| ?Stage five ? | ? Stage five ?+ ---+ ---+ -------+ *Each stage assumes the associated GFR level has been in effect for at least three months. ?Stages 1 to 5, with or without kidney disease, indicate chronic kidney disease. Notes: Determination of stages one and two (with eGFR >59mL/min/1.73 m2) requires estimation of kidney damage for at least three months as defined by structural or functional abnormalities of the kidney, manifested by either:Pathological abnormalities or Markers of kidney damage (including abnormalities in the composition of the blood or urine or abnormalities in imaging tests). Lab Interpretation Abnormal (test code = 12961-6) [facility] WITH [id number] 18:09:00 Test Item Value Reference Range Interpretation Comments WBC (test code = See_Comment [Automated 9006-2) message] The sy stem which generated this result transmitted reference range : 4.30 - 11.10 10*3/?L. The reference range was not used to interpret this result as normal/abnormal . RBC (test code = See_Comment [Automated 268-8) message] The sy stem which generated this result transmitted reference range : 3.93 - 5.25 10*6/?L. The reference range was not used to interpret this result as normal/abnormal . HGB (test code = 11.4 g/dL 11.6-15 L 718-7) HCT (test code = 36.1 % 35.7-45.2 4544-3) MCV (test code = 85.1 fL 80.6-95.5 787-2) MCH (test code = 26.9 pg 25.9-32.8 785-6) MCHC (test code = 31.6 g/dL 31.6-35.1 786-4) RDW-SD (test code = 44.9 fL 39-49.9 00602-1) RDW-CV (test code = 14.6 % 12-15.5 788-0) PLT (test code = See_Comment L [Automated 777-3) message] The sy stem which generated this result transmitted reference range : 166 - 358 10*3/ ?L. The reference r fernanda was not used to interpret this result as normal/abnormal . MPV (test code = 9.6 fL 9.5-12.9 73274-6) NRBC/100 WBC (test See_Comment [Automat ed code = 7167233000) message] The system which generated this result transmitted reference range : 0.0 - 10.0 /100 WBCs. The refer ence range was not u sed to interpret th is result as normal/abnormal . NRBC x10^3 (test code <0.01 See_Comment [Auto mated = 3537791973) message] The s ystem which generated this result transmitted reference range : 10*3/?L. The reference range was not used to interpret this result as normal/abnormal . GRAN MAT (NEUT) % 81.2 % (test code = 770-8) IMM GRAN % (test code 0.60 % = 6786329963) LYMPH % (test code = 11.7 % 736-9) MONO % (test code = 5.9 % 5905-5) EOS % (test code = 0.3 % 713-8) BASO % (test code = 0.3 % 706-2) GRAN MAT x10^3(ANC) 5.53 10*3/uL 1.88-7.09 (test code = 4273111421) IMM GRAN x10^3 (test 0.04 10*3/uL 0-0.06 code = 8875149096) LYMPH x10^3 (test code 0.80 10*3/uL 1.32-3.29 L = 731-0) MONO x10^3 (test code 0.40 10*3/uL 0.33-0.92 = 742-7) EOS x10^3 (test code = <0.03 0.03-0.39 L 711-2) BASO x10^3 (test code <0.03 0.01-0.07 = 704-7) Lab Interpretation Abnormal (test code = 87661-0) [facility]
[2021-06-09 10:58] LABS: Absolute Lymphocytes (CBC) 1.1 K/uL (0.7-4.9); Hematocrit 37.6 % (36.0-45.0); Lymphocytes % 14.6 % (15.3-44.8); MPV 7.4 fL (7.6-11.3); RBC Red Blood Cell Count 4.24 M/uL (3.86-4.86)
[2021-06-09 11:04] LABS: Protime INR 1.02
[2021-06-09 11:18] LABS: Potassium 4.3 mmol/L (3.5-5.1)
--- NOTE | 2021-06-09 11:51 | RAD REPORT ---
EXAM DESCRIPTION: RAD - Chest Single View - 06/09/2021 11:45 am CLINICAL HISTORY: BLUNT CHEST TRAUMA Chest pain. COMPARISON: Chest Pa And Lat (2 Views) dated 04/25/2019 FINDINGS: Portable technique limits examination quality. Large hiatal hernia. Linear atelectasis in the left lung base is seen. The lungs are otherwise clear. The heart is normal in size. No displaced fractures.
--- NOTE | 2021-06-09 11:52 | RAD REPORT ---
EXAM DESCRIPTION: RAD - Pelvis - 06/09/2021 11:45 am CLINICAL HISTORY: BLUNT TRAUMA COMPARISON: No comparisons FINDINGS: Significant right hip osteoarthritis is seen. No acute fracture or dislocation is evident.
--- NOTE | 2021-06-09 11:53 | RAD REPORT ---
EXAM DESCRIPTION: RAD - Hip Right 2 View - 06/09/2021 11:46 am CLINICAL HISTORY: PAIN COMPARISON: No comparisons FINDINGS: Severe right hip osteoarthritis is present. No acute fracture or dislocation seen.
--- NOTE | 2021-06-09 11:56 | RAD REPORT ---
EXAM DESCRIPTION: RAD - Hip Left 2 View - 06/09/2021 11:46 am CLINICAL HISTORY: PAIN COMPARISON: No comparisons FINDINGS: No acute fracture or dislocation is seen.
--- NOTE | 2021-06-09 11:56 | RAD REPORT ---
EXAM DESCRIPTION: RAD - Knee Right 2 View - 06/09/2021 11:46 am CLINICAL HISTORY: PAIN COMPARISON: No comparisons FINDINGS: Qity-ko-reqyxapz osteoarthritis is present. No fracture seen. Small suprapatellar joint ef fusion.
--- NOTE | 2021-06-09 11:57 | RAD REPORT ---
EXAM DESCRIPTION: RAD - Knee Left 2 View - 06/09/2021 11:45 am CLINICAL HISTORY: PAIN COMPARISON: No comparisons FINDINGS: Advanced tricompartmental osteoarthritis is present. No acute fracture or dislocation seen . Small volume of suprapatellar joint fluid.
--- NOTE | 2021-06-09 12:00 | RAD REPORT ---
EXAM DESCRIPTION: CT - CTHCSPWOC - 06/09/2021 11:50 am CLINICAL HISTORY: Trauma, head and neck injury. fall, facial injury, head injury COMPARISON: Head C Spine Mpr Wo Con dated 09/15/2019; Facial Bones W/ Mpr dated 06/09/2021 TECHNIQUE: Axial 5 mm thick images of the head were obtained. Axial 2 mm thick images of the cervical spine were obtained with sagittal and coronal reconstruction images generated and reviewed. All CT scans are performed using dose optimization technique as appropriate and may include automated exposure control or mA/KV adjustment according to patient size. FINDINGS: CT HEAD WITHOUT CONTRAST: No acute hemorrhage, hydrocephalus or extra-axial collection is identified.Mild generalized brain atr ophy is present with mild periventricular and deep white matter chronic microvascular ischemic change s.No areas of brain edema or midline shift. The paranasal sinuses and mastoids are clear.The calvarium is intact. CT CERVICAL SPINE WITHOUT CONTRAST: No fracture or subluxation.Mild mid and lower cervical degenerative changes.No prevertebral soft tiss ues swelling is identified. IMPRESSION: No acute intracranial or cervical spine findings.
--- NOTE | 2021-06-09 12:01 | RAD REPORT ---
EXAM DESCRIPTION: CT - CTFB CLINICAL HISTORY: FACIAL PAIN Trauma, facial pain and swelling COMPARISON: No comparisons TECHNIQUE: Axial 2 mm thick images of the face were obtained with sagittal and coronal reconstructio n images. All CT scans are performed using dose optimization technique as appropriate and may include automated exposure control or mA/KV adjustment according to patient size. FINDINGS: No acute facial bone fracture is seen.Soft tissue swelling is seen about nasal region with out displaced nasal bone fracture seen.The mandible is intact. The globes and orbital contents are grossly unremarkable.The paranasal sinuses and mastoids are clear . IMPRESSION: Negative for facial bone fracture.
--- NOTE | 2021-06-09 12:38 | ER ---
Nurse's Notes [facility] Name: Ines Iqbal Age: 80 yrs Sex: Female : 1940 Arrival Date: 06/09/2021 Time: 10:27 Bed 4 Private MD: Diagnosis: Unspecified injury of head, initial encounter;Contusion of left knee;Contusion of right knee;Contusion of lip Presentation: 06/09 10:34 Chief complaint:. Chief complaint: EMS states: Patient fell face down from bed at [facility], has nose and mouth bleeding .Hx of dementia and Alzheimer, not on blood thinner. Coronavirus screen: Vaccine status:. Ebola Screen: No symptoms or risks identified at this time. Initial Sepsis Screen: Does the patient meet any 2 criteria? No. Patient's initial sepsis screen is negative. Does the patient have a suspected source of infection? No. Patient's initial sepsis screen is negative. Risk Assessment: Do you want to hurt yourself or someone else? Unable to obtain. Onset of symptoms was June 09, 2021 at 09:15. 10:34 Method Of Arrival: EMS: [facility] ke1 10:34 Acuity: KISHORE 3 ke1 Triage Assessment: 10:44 General: Appears uncomfortable. Pain: Unable to use pain scale. Patient appears moaning ke1 while assessing lips and nose. Neuro: Level of Consciousness is awake, Oriented to none. Historical: - Allergies: 10:41 Chocolate; ke1 10:41 Macrobid; ke1 10:41 Morphine; ke1 10:41 PENICILLINS; ke1 - PMHx: 10:42 Anemia; Atrial Fib; convulsions; Hyperlipidemia; Hypertension; Hypokalemia; ke1 Hypothyroidism; traumatic subdural hemorrhage; 10:43 Dementia; ke1 - Immunization history:: Adult Immunizations unknown. - Social history:: Smoking status: unknown. - Family history:: not pertinent. - Hospitalizations: : No recent hospitalization is reported. - History obtained from: EMS. Screenin:33 Abuse screen: Denies threats or abuse. Nutritional screening: No deficits noted. jd3 Tuberculosis screening: No symptoms or risk factors identified. Fall Risk Ambulatory Aid- Crutches/Cane/Walker (15 pts). Gait- Impaired (20 pts.). Mental Status- Overestimates/Forgets Limitations (15 pts.). Total Wilkinson Fall Scale indicates High Risk Score (45 or more points). Fall prevention measures have been instituted. Side Rails Up X 2 Placed Close to Nursing Station Frequent Obs/Assessments Occuring. Assessment: 10:31 General: Appears comfortable, Behavior is calm, cooperative. Pain: Complains of pain in jd3 nose and upper lip Quality of pain is described as aching, tender. Neuro: Level of Consciousness is awake, obeys commands, confused, at baseline per [facility] staff and EMS. Oriented to person. Cardiovascular: Capillary refill < 3 seconds Patient's skin is warm and dry. Respiratory: Airway is patent Respiratory effort is even, unlabored, Respiratory pattern is regular, symmetrical. GI: No signs and/or symptoms were reported involving the gastrointestinal system. : No signs and/or symptoms were reported regarding the genitourinary system. EENT: No signs and/or symptoms were reported regarding the EENT system. Derm: Skin is intact, Skin is dry, Skin is normal, Skin temperature is warm dried blood noted to nares. upper lipped noted to be swollen at this time. Musculoskeletal: Circulation, motion, and sensation intact. Range of motion: intact in all extremities. 11:59 Reassessment: No changes from previously documented assessment. Patient and/or family jd3 updated on plan of care and expected duration. Pain level reassessed. 13:00 Reassessment: No changes from previously documented assessment. Patient and/or family jd3 updated on plan of care and expected duration. Pain level reassessed. Fax sent to [facility] for discharge home before report is called. 14:11 Reassessment: Patient appears in no apparent distress at this time. No changes from jd3 previously documented assessment. Patient and/or family updated on plan of care and expected duration. Pain level reassessed. report given to [facility] RN. Vital Signs: 10:34 BP 160 / 70; Pulse 66; Resp 17; Temp 98.2; Pulse Ox 99% on R/A; ke1 11:59 BP 146 / 67; Pulse 68; Resp 16 S; Pulse Ox 100% on R/A; jd3 13:01 BP 97 / 84; Pulse 73; Resp 16 S; Pulse Ox 97% on R/A; jd3 ED Course: 10:27 Patient arrived in ED. ss 10:29 Michael Banda MD is Attending Physician. rn 10:31 Jaison Perry, RN is Primary Nurse. jd3 10:34 Patient has correct armband on for positive identification. Placed in gown. Bed in low jd3 position. Call light in reach. Side rails up X2. Pulse ox on. NIBP on. 10:40 Triage completed. ke1 10:52 Arm band placed on. jd3 10:52 EKG done. jd3 10:54 Initial lab(s) drawn, by me, sent to lab. Inserted saline lock: 20 gauge in left jw7 forearm, using aseptic technique. Blood collected. 11:46 XRAY Chest (1 view) In Process Unspecified. EDMS 11:46 XRAY Pelvis In Process Unspecified. EDMS 11:46 XRAY Knee LEFT 2 view In Process Unspecified. EDMS 11:46 XRAY Knee RIGHT 2 view In Process Unspecified. EDMS 11:46 XRAY Hip RIGHT 2 view In Process Unspecified. EDMS 11:46 XRAY Hip LEFT 2 view In Process Unspecified. EDMS 11:50 CT Head C Spine In Process Unspecified. EDMS 11:50 CT Facial Bones W/O Con In Process Unspecified. EDMS 13:01 No provider procedures requiring assistance completed. jd3 14:11 IV discontinued, intact, bleeding controlled, No redness/swelling at site. Pressure jd3 dressing applied. Administered Medications: No medications were administered Outcome: 12:38 Discharge ordered by . rn 13:30 [facility] to [facility] Report called to Theresa MEZA ke1 13:30 Condition: stable 14:11 Discharge instructions given to [facility], Instructed on discharge instructions, jd3 follow up and referral plans. Demonstrated understanding of instructions, follow-up care. 14:15 Patient left the ED. jd3 Signatures: Dispatcher [employer] EDMS Michael Banda MD MD rn Smirch, Shelby, RN RN Jaison Esparza, RN RN jchristina TejedasWilma jw7 Nevaeh Mcgee RN RN ke1
--- NOTE | 2021-06-09 12:38 | EDPHYS ---
Physician Documentation [facility] Name: Ines Iqbal Age: 80 yrs Sex: Female : 1940 Arrival Date: 06/09/2021 Time: 10:27 Bed 4 Private MD: ED Physician Michael Banda HPI: 06/09 10:35 This 80 yrs old Unknown Female presents to ER via Unassigned with complaints of Fall rn Injury. 10:35 Details of fall: The patient fell from an upright position, while standing. rn 10:35 Onset: The symptoms/episode began/occurred just prior to arrival. Associated injuries: rn The patient sustained injury to the head, both knees/lower ext. Severity of symptoms: At their worst the symptoms were moderate, in the emergency department the symptoms are unchanged. It is unknown whether or not the patient has had similar symptoms in the past. Per EMS, patient status post fall, unclear as they do not believe it was witnessed. Primarily facial and head injuries. Patient with dementia and unknown baseline. No known blood thinners.. Historical: - Allergies: 10:41 Chocolate; ke1 10:41 Macrobid; ke1 10:41 Morphine; ke1 10:41 PENICILLINS; ke1 - PMHx: 10:42 Anemia; Atrial Fib; convulsions; Hyperlipidemia; Hypertension; Hypokalemia; ke1 Hypothyroidism; traumatic subdural hemorrhage; 10:43 Dementia; ke1 - Immunization history:: Adult Immunizations unknown. - Social history:: Smoking status: unknown. - Family history:: not pertinent. - Hospitalizations: : No recent hospitalization is reported. - History obtained from: EMS. ROS: 10:39 Constitutional: Negative for fever, chills, and weight loss, Eyes: Negative for injury, rn pain, redness, and discharge, Neck: Negative for injury, pain, and swelling, Cardiovascular: Negative for chest pain, palpitations, and edema, Respiratory: Negative for shortness of breath, cough, wheezing, and pleuritic chest pain, Abdomen/GI: Negative for abdominal pain, nausea, vomiting, diarrhea, and constipation, Back: Negative for injury and pain, MS/Extremity: Positive for pain to legs Skin: Negative for injury, rash, and discoloration, Neuro: Positive for headache and facial injury Exam: 10:39 Constitutional: This is a well developed, well nourished patient who is awake, alert, rn mild facial trauma Head/Face: Normocephalic, mild nasal swelling and tenderness with dry blood in nares. No septal hematoma. Upper lip with swelling and ecchymosis, no internal laceration noted Eyes: Pupils equally round and reactive to light. Periorbital areas with no swelling, redness, or edema. Chest/axilla: No crepitus Cardiovascular: Regular rate and rhythm. No pulse deficits. Respiratory: No increased work of breathing, no retractions or nasal flaring. Abdomen/GI: Soft, non-tender, with normal bowel sounds. No distension or tympany. No guarding or rebound. No evidence of tenderness throughout. Skin: Warm, dry MS/ Extremity: Pulses equal, no cyanosis. Neurovascular intact. Painful range of motion of bilateral lower extremities, unable to localize where her pain is. Mild abrasions to both knees. No lacerations Neuro: Awake and alert, GCS 15, oriented to person but not place or time. 4 out of 5 strength in all extremities Vital Signs: 10:34 BP 160 / 70; Pulse 66; Resp 17; Temp 98.2; Pulse Ox 99% on R/A; ke1 11:59 BP 146 / 67; Pulse 68; Resp 16 S; Pulse Ox 100% on R/A; jd3 13:01 BP 97 / 84; Pulse 73; Resp 16 S; Pulse Ox 97% on R/A; jd3 MDM: 10:29 Patient medically screened. rn 12:35 Differential diagnosis: closed head injury, contusion, fracture, sprain, strain. Data rn reviewed: vital signs, nurses notes, lab test result(s), radiologic studies, CT scan, plain films, and as a result, I will discharge patient. Counseling: I had a detailed discussion with the patient and/or guardian regarding: the historical points, exam findings, and any diagnostic results supporting the discharge/admit diagnosis, lab results, radiology results, the need for outpatient follow up, to return to the emergency department if symptoms worsen or persist or if there are any questions or concerns that arise at home. Special discussion: Based on the patient's history, exam and DX evaluation, there is no indication for emergent intervention or inpatient TX. It is understood by the patient/guardian that if the SXs persist or worsen they need to return immediately for re-evaluation. I discussed with the patient/guardian in detail that at this point there is no indication for admission to the hospital. It is understood, however, that if the symptoms persist or worsen the patient needs to return immediately for re-evaluation. ED course: No acute findings in imaging. No fracture. No lacerations to suture. Will dc home with return precautions.. 06/09 10:33 Order name: CBC with Diff; Complete Time: 11: rn 06/09 10:33 Order name: Basic Metabolic Panel; Complete Time: 11: rn 06/09 10:33 Order name: CT Head C Spine; Complete Time: 12: rn 06/09 10:33 Order name: CT Facial Bones W/O Con; Complete Time: 12: rn 06/09 10:33 Order name: Protime (+inr); Complete Time: 11: rn 06/09 10:33 Order name: Ptt, Activated; Complete Time: 11: rn 06/09 10:33 Order name: XRAY Chest (1 view); Complete Time: 12:02 rn 06/09 10:33 Order name: XRAY Pelvis; Complete Time: 12:02 rn 06/09 10:33 Order name: XRAY Knee LEFT 2 view; Complete Time: 12:02 rn 06/09 10:33 Order name: XRAY Knee RIGHT 2 view; Complete Time: 12:02 rn 06/09 10:33 Order name: XRAY Hip RIGHT 2 view; Complete Time: 12:02 rn 06/09 10:33 Order name: XRAY Hip LEFT 2 view; Complete Time: 12:02 rn 06/09 10:33 Order name: IV Start; Complete Time: 10:52 rn 06/09 10:34 Order name: EKG; Complete Time: 10:34 rn 06/09 10:34 Order name: EKG - Nurse/Tech; Complete Time: 10:52 rn Administered Medications: No medications were administered Disposition Summary: 06/09/21 12:38 Discharge Ordered Location: Home rn Problem: new rn Symptoms: have improved rn Condition: Stable rn Diagnosis - Unspecified injury of head, initial encounter rn - Contusion of left knee rn - Contusion of right knee rn - Contusion of lip rn Followup: rn - With: Private Physician - When: As needed - Reason: Recheck today's complaints, Re-evaluation by your physician Discharge Instructions: - Discharge Summary Sheet rn - Contusion rn - Head Injury, Adult rn Forms: - Medication Reconciliation Form rn - Thank You Letter rn - Antibiotic rn first assist - Prescription Opioid Use rn Signatures: Dispatcher [employer] EDMichael Crum MD MD rn Davies, Jonathon, RN RN jd3 Nevaeh Mcgee RN RN ke1 Corrections: (The following items were deleted from the chart) 10:39 10:35 Per EMS. rn rn
[2021-06-09 14:26] VITALS: TEMP 98.2
[2021-06-09 14:29] VITALS: BP 97/84; O2SAT 97
--- NOTE | 2021-06-10 11:33 | EKG ---
Test Date: 2021-06-09 Test Time: 10:53:28 Wood Car Builder: JUAN MEASUREMENT RESULTS: Intervals: Rate: 73 VT: QRSD: 78 QT: 414 QTc: 456 [place]: P: VT: QRS: 21 T: 88 INTERPRETIVE STATEMENTS: Atrial fibrillation Abnormal ECG Compared to ECG 09/15/2019 09:37:28 Sinus rhythm no longer present ST (T wave) deviation no longer present Electronically Signed On 06-10-21 11:30:34 PLATEN DRIER OPERATOR by Kaushik Castellanos
== END 2021-06-09 14:15 | disposition home or self-care (01) ==
LOC: ER 10:26
DX: S09.90XA Unspecified injury of head, initial encounter (principal); S00.531A Contusion of lip, initial encounter; S80.02XA Contusion of left knee, initial encounter; S80.01XA Contusion of right knee, initial encounter; W19.XXXA Unspecified fall, initial encounter; F03.90 Unspecified dementia, unspecified severity, without behavioral disturbance, psychotic disturbance, mood disturbance, and anxiety; I10 Essential (primary) hypertension; Z88.0 Allergy status to penicillin; Z88.5 Allergy status to narcotic agent; Z88.8 Allergy status to other drugs, medicaments and biological substances; Z91.018 Allergy to other foods
CPT/HCPCS: 36415; 70450; 70486; 71045; 72125; 72170; 76377; 80048; 85025; 85610; 85730; 93005; 99284